=== PATIENT | female | born 1945 | race Caucasian/White ===

== ENCOUNTER 2020-01-02 17:16 | Emergency (ER) | payer MEDICARE, BC ==
[~2020-01-02 17:16] MED LIST: Iopamidol-370 76% 500 ML 1 ML ONE
[2020-01-02 18:20] LABS: #Basophils 0.1 thou/uL (0.0-0.2); #Eosinphils 0.1 thou/uL (0.0-0.7); #Lymphocytes 1.8 thou/uL (1.20-3.40); %Basophils 0.6 % (0.0-1.0); %Eosinophils 0.6 % (0.0-10.0); %Lymphocytes 16.1 % (21.0-51.0); %Monocytes 9.1 % (0.0-10.0); %Neutrophils 73.7 % (42.0-75.0); Mean Corpuscular HGB CONC 33.2 g/dL (32.0-36.0); Mean Corpuscular Hemoglobin 29.5 pg (27.0-31.0); Mean Corpuscular Volume 88.9 fL (78.0-98.0); Mean Platelet Volume 6.2 fL (7.4-10.4); Platelet Count 398 thou/uL (130-400); RBC Distribution Width 13.2 % (11.5-14.5); White Blood Cell (WBC) Count 10.9 thou/uL (4.8-10.8)
[2020-01-02 18:23] LABS: INR-International Normal Ratio 1.1; Prothrombin Time 14.6 sec (12.0-14.7)
[2020-01-02 18:24] LABS: PTT 39.4 sec (22.9-36.1)
[2020-01-02 18:40] LABS: ALT (SGPT) 8 U/L (8-55); AST (SGOT) 9 U/L (5-34); Alkaline Phosphatase 82 U/L (40-110); Anion Gap 16 mmol/L (10-20); BUN (Urea Nitrogen) 12 mg/dL (9.8-20.1); Bilirubin, Total 0.5 mg/dL (0.2-1.2); Calc. Creatinine Clearance 0 mL/min (70-130); Calcium 9.3 mg/dL (7.8-10.44); Carbon Dioxide 21 mmol/L (23-31); Chloride 102 mmol/L (98-107); Estimated GFR-MDRD 69; Globulin 3.6 g/dL (2.4-3.5); Glucose 132 mg/dL (83-110); Potassium 3.7 mmol/L (3.5-5.1); Protein, Total 7.6 g/dL (6.0-8.3); Sodium 135 mmol/L (136-145)
[2020-01-02 19:06] LABS: Bilirubin Negative (Negative); Blood, Urine 3+ (Negative); Clarity Turbid (Clear); Glucose, Urine (Dipstick) Normal (Negative); Ketone, Urine Negative (Negative); Leukocyte Negative Leu/uL (Negative); Nitrite Negative (Negative); Protein, Urine (Dipstick) 300 mg/dL (Neg-Trace); RBC/HPF Greater than 50 HPF (0-3); Specific Gravity, Urine 1.021 (1.002-1.036); Squamous Epithelial None Seen HPF (0-3); Urobilinogen Normal mg/dL (Less than 2); WBC/HPF 0-3 HPF (0-3)
[2020-01-02 19:07] LABS: Bacteria/HPF 1+ HPF (None Seen)
--- NOTE | 2020-01-02 21:01 | CT ---
CT ABDOMEN AND PELVIS WITHOUT CONTRAST: Date: 01/02/2020 HISTORY: Hematuria. FINDINGS: Absence of oral and IV contrast reduces the sensitivity of exam, particularly for evaluation of solid organs and bowel. The lung bases are unremarkable. There is a calcified gallstone. No free air or free fluid is seen in the abdomen or pelvis. Uterus is present. There is colonic diverticulosis without diverticulitis. Th e small bowel loops are not abnormally dilated. There is a 14.0 mm right adrenal nodule with attenuation values consistent with a benign adenoma. The re is an indeterminate 2.6 cm left adrenal nodule. There is a 4.0 mm nonobstructing calculus in the right kidney. No calculi seen in the left kidney, ei ther ureter, or the urinary bladder. No hydroureteronephrosis is seen on the right. There is mild lef t-sided hydroureteronephrosis. There is mass-like density in the left kidney. There is mild left chely nephric inflammatory change. There is a Correa catheter in the urinary bladder with air in the urinary bladder. There are vascular calcifications without evidence of aneurysmal dilatation of the abdominal aorta. T here are degenerative changes in the spine. IMPRESSION: 1. Cholelithiasis. 2. Right adrenal adenoma. 3. Indeterminate 2.6 cm left adrenal nodule. 4. Nonobstructing 4.0 mm right renal calculus. 5. Probable left renal mass. 6. Mild left-sided hydroureteronephrosis and left perinephric inflammatory changes. UTI versus recen t passage of calculus. 7. Colonic diverticulosis. RECOMMENDATION: Further evaluation with a CT scan using the renal mass and adrenal mass protocol (with and without IV contrast) should be performed. CODE T. POS: TORI
--- NOTE | 2020-01-02 22:52 | CT ---
CT ABDOMEN AND PELVIS WITH AND WITHOUT IV CONTRAST: Date: 01/02/2020 HISTORY: Hematuria. FINDINGS: Correlation is made with CT stone protocol from earlier today. The lung bases are clear. There is a 7.0 mm low density lesion in the posterior inferior tip of the right lobe of the liver, to o small to characterize. A calcified gallstone is seen. There is a 9.0 mm hypodense lesion in the sera tral aspect of the neck/body of the pancreas. A 14.0 mm right adrenal adenoma is seen with an absolute washout of 82% and relative washout of 49%. The 3.0 cm left adrenal nodule has an absolute washout of 20% and relative washout of 13%, and is ind eterminate. There is high density in the left upper ureter suspicious for hemorrhage. There is a heterogeneously enhancing mass arising from the left mid cortex measuring 6.2 x 5.1 x 5.5 cm. There is loss of fat plane between this mass and the inferior aspect of the spleen. There is a heterogeneous mass in the medial cortex of the left kidney measuring about 18.0 mm and an 18.0 mm heterogeneous lesion in the inferior pole of the left kidney. In the right kidney, there is a 1.0 cm heterogeneous lesion in the superior pole. There is normal con trast excretion into the right ureter and urinary bladder. No contrast is seen on the 15 minute delay ed image in the left ureter. There is mild left hydroureteronephrosis. No renal vein thrombosis. A 4.0 mm nonobstructing calculus in the right kidney is again noted. The small bowel loops are not abnormally dilated. There is colonic diverticulosis. A uterus is presen t. No free air or free fluid seen in the abdomen or pelvis. There are a few prominent left paraaortic ly mph nodes measuring up to 7.0 mm at the level of the left renal vein. There is a Correa catheter in the urinary bladder. There are vascular calcifications without evidence of aneurysmal dilatation of the abdominal aorta. There are degenerative changes in the spine. No oste olytic or osteoblastic lesions are seen. IMPRESSION: 1. Findings are suspicious for left renal malignancy and left adrenal metastasis. 2. Right adrenal adenoma. 3. Cholelithiasis. 4. Mild left-sided hydroureteronephrosis. Probable blood clot in the left proximal ureter. 5. Nonobstructing 4.0 mm right renal calculus. 6. Colonic diverticulosis. 7. 9.0 mm low density lesion in the pancreas may represent a cystic neoplasm. POS: JELENAH
== END 2020-01-02 21:50 | disposition home or self-care (01) ==
LOC: ERS 17:16
DX: N28.89 Other specified disorders of kidney and ureter (principal); E27.9 Disorder of adrenal gland, unspecified; R33.9 Retention of urine, unspecified; E78.5 Hyperlipidemia, unspecified; I10 Essential (primary) hypertension; F17.210 Nicotine dependence, cigarettes, uncomplicated; Z79.899 Other long term (current) drug therapy
CPT/HCPCS: 36415; 51702; 74176; 74178; 80053; 81003; 81015; 85025; 85610; 85730; 87077; 87086; Q9967

== ENCOUNTER 2020-01-04 13:24 | Outpatient (CLI) | payer MEDICARE, BC ==
--- NOTE | 2020-01-04 14:42 | RAD ---
CHEST 2 VIEWS: HISTORY: Dyspnea. COMPARISON: 03/13/2015. FINDINGS: There is a large poorly circumscribed mass involving the superior medial right upper lobe adjacent to the right-sided anterior superior mediastinum. This mass measures approximately 5 cm in size and ce rtainly is concerning for a lung malignancy. There does appear to be some associated right upper lob e volume loss as well. The left lung is clear. Heart size is normal. IMPRESSION: Large medial right upper lobe lung mass with some minimal associated volume loss. CODE T
== END 2020-01-04 13:25 | disposition home or self-care (01) ==
LOC: BICRAD 13:24
PROVIDERS: ATTEND Internal Medicine Pulmonary Disease
DX: R06.00 Dyspnea, unspecified (principal); R91.8 Other nonspecific abnormal finding of lung field; J98.4 Other disorders of lung
CPT/HCPCS: 71046

== ENCOUNTER 2020-01-20 11:27 | Outpatient (CLI) | payer MEDICARE, BC, OTHER ==
--- NOTE | 2020-01-20 13:00 | RAD ---
EXAM: Chest PA and lateral: HISTORY: Preoperative exam. Right lung mass COMPARISON: 01/04/2020 FINDINGS: Heart: Normal cardiac silhouette Aorta: Atherosclerosis Pulmonary vessels: Normal Costophrenic angles: Costophrenic angles are clear. Lungs: Stable right upper lobe mass. Pneumothorax: No pneumothorax Osseous structures: No osseous abnormalities IMPRESSION: No acute cardiopulmonary process.
[2020-01-20 14:17] LABS: #Eosinphils 0.1 thou/uL (0.0-0.7); #Lymphocytes 1.1 thou/uL (1.20-3.40); #Monocytes 0.7 thou/uL (0.11-0.59); #Neutrophils 9.5 thou/uL (1.40-6.50); %Basophils 0.3 % (0.0-1.0); %Eosinophils 0.9 % (0.0-10.0); %Lymphocytes 9.9 % (21.0-51.0); %Monocytes 6.4 % (0.0-10.0); %Neutrophils 82.5 % (42.0-75.0); Hemoglobin 11.5 g/dL (12.0-16.0); Mean Corpuscular HGB CONC 32.1 g/dL (32.0-36.0); Mean Corpuscular Hemoglobin 29.5 pg (27.0-31.0); Mean Corpuscular Volume 91.7 fL (78.0-98.0); Mean Platelet Volume 6.3 fL (7.4-10.4); Platelet Count 338 thou/uL (130-400); RBC Distribution Width 13.1 % (11.5-14.5); Red Blood Cell (RBC) Count 3.91 mill/uL (4.20-5.40); White Blood Cell (WBC) Count 11.5 thou/uL (4.8-10.8)
[2020-01-20 14:37] LABS: Anion Gap 19 mmol/L (10-20); BUN (Urea Nitrogen) 13 mg/dL (9.8-20.1); Calc. Creatinine Clearance 0 mL/min (70-130); Calcium 9.2 mg/dL (7.8-10.44); Carbon Dioxide 24 mmol/L (23-31); Chloride 101 mmol/L (98-107); Estimated GFR-MDRD 78; Glucose 112 mg/dL (83-110); Potassium 4.4 mmol/L (3.5-5.1); Sodium 140 mmol/L (136-145)
--- NOTE | 2020-01-20 16:48 | EKG ---
Test Reason : Blood Pressure : / mmHG Vent. Rate : 093 BPM Atrial Rate : 093 BPM P-R Int : 220 ms QRS Dur : 082 ms QT Int : 356 ms P-R-T Axes : 076 073 071 degrees QTc Int : 442 ms Sinus rhythm with 1st degree A-V block Nonspecific T wave abnormality Abnormal ECG When compared with ECG of 09-JAN-2020 06:58, Nonspecific T wave abnormality now evident in Inferior leads Nonspecific T wave abnormality now evident in Anterior leads Confirmed by DR. Francesco BYERS ([id number]) on 01/20/2020 4:47:57 PM Referred By: WERNER Confirmed By:DR. Francesco BYERS
[2020-01-21 14:05] LABS: SARS-CoV-2 MS2 Positive; SARS-CoV-2 N Gene Negative; SARS-CoV-2 S Gene Negative; SARS-CoV-2 by NAA Not Detected (NotDetected); SARS-CoV-2 orf1ab Negative
== END 2020-01-20 11:28 | disposition home or self-care (01) ==
LOC: LABBT 11:27 → SCSRAD 11:28
PROVIDERS: ATTEND Specialist
DX: Z01.818 Encounter for other preprocedural examination (principal); Z20.828 Contact with and (suspected) exposure to other viral communicable diseases; C34.92 Malignant neoplasm of unspecified part of left bronchus or lung
CPT/HCPCS: 71046; 80048; 85025; 87635; 93005; 93010; U0003

== ENCOUNTER 2020-02-17 08:24 | Day surgery (SDC) | payer MEDICARE, BC ==
[2020-02-17] MEDS ORDERED: diphenhydrAMINE 25 MG CAP PO SCH (08:45)
[2020-02-17] MEDS ORDERED: Acetaminophen 500 MG TAB PO SCH (08:45)
[2020-02-17] MEDS ORDERED: Sodium Chloride 0.9% 30 ML ONE (09:09)
[2020-02-17 12:24] VITALS: BP 130/59; TEMP 98
== END 2020-02-17 12:38 | disposition home or self-care (01) ==
LOC: ONC/OP 08:24
PROVIDERS: ATTEND Nurse Practitioner Family
PROC: 30233N1 Transfusion of Nonautologous Red Blood Cells into Peripheral Vein, Percutaneous Approach (ICD-10-PCS; principal; 2020-02-17)
DX: D64.9 Anemia, unspecified (principal); D69.6 Thrombocytopenia, unspecified; Z88.2 Allergy status to sulfonamides
CPT/HCPCS: 36430; 86850; 86900; 86901; J1642; P9016; Q0163

== ENCOUNTER 2020-03-06 08:31 | Day surgery (SDC) | payer MEDICARE, BC ==
[2020-03-06] MEDS ORDERED: Acetaminophen 500 MG TAB PO SCH (09:15)
[2020-03-06] MEDS ORDERED: diphenhydrAMINE 25 MG CAP PO SCH (09:15)
[2020-03-06] MEDS ORDERED: Sodium Chloride 0.9% 20 ML ONE (09:43)
[2020-03-06 13:25] VITALS: TEMP 97.9
[2020-03-06 14:41] VITALS: BP 143/61
== END 2020-03-06 15:37 | disposition home or self-care (01) ==
LOC: ONC/OP 08:31
PROVIDERS: ATTEND Internal Medicine Hematology & Oncology
PROC: 30233N1 Transfusion of Nonautologous Red Blood Cells into Peripheral Vein, Percutaneous Approach (ICD-10-PCS; principal; 2020-03-06)
DX: D64.9 Anemia, unspecified (principal); D69.6 Thrombocytopenia, unspecified
CPT/HCPCS: 36430; 86850; 86900; 86901; J1642; P9016; Q0163

== ENCOUNTER 2020-03-15 07:39 | Outpatient (CLI) | payer MEDICARE, BC ==
--- NOTE | 2020-03-15 12:07 | PET ---
PET CT: HISTORY: A 75-year-old female with lung cancer. Exam requested to evaluate response to treatment. Malignant neoplasm of overlapping sites of right bronchus and lung. The patient is undergoing chemotherapy. TECHNIQUE: PET scan with CT attenuation correction was performed from the base of the brain through the proximal thighs following the intravenous administration of 10 mCi [id number] through the left-si ded MediPort. COMPARISON: PET CT dated 01/13/2020. FINDINGS: There has been interval decrease in size in FDG localization in the right hilar/suprahilar mass since the previous exam with a current SUV of 9.6 (previously 22.6). No other hypermetabolic pulmonary no dules are seen. No leslie hypermetabolism is seen in the mediastinum, axillary regions, left hilum, n rio, abdomen, or pelvis. There is continued hypermetabolic activity in the left adrenal mass with an SUV of 9 (previously 8). The hypermetabolic mass in the pancreas is no longer seen. The previously noted hypermetabolic activity in the mass in the left mid kidney and the right superio r pole is not seen on the current exam. No hyperbolic liver, right adrenal, or skeletal lesions are seen. There is physiologic activity in the GI and tracts and the visualized portions of the brain. The CT scan used for attenuation correction demonstrates no evidence of pleural effusions or ascites. Cholelithiasis , nonobstructing right renal calculus, left renal mass, and colonic diverticulosis a re again seen. IMPRESSION: Incomplete response to therapy with interval improvement since 01/13/2020. POS: SHAWNEE
== END 2020-03-15 07:40 | disposition home or self-care (01) ==
LOC: PET 07:39
PROVIDERS: ATTEND Internal Medicine Hematology & Oncology
DX: C34.81 Malignant neoplasm of overlapping sites of right bronchus and lung (principal)
CPT/HCPCS: 78815; A9552

== ENCOUNTER 2020-04-20 09:17 | Day surgery (SDC) | payer MEDICARE, BC ==
[2020-04-20] MEDS ORDERED: diphenhydrAMINE 25 MG CAP PO SCH (10:00)
[2020-04-20] MEDS ORDERED: Acetaminophen 500 MG TAB PO SCH (10:00)
[2020-04-20 14:48] VITALS: BP 148/64; TEMP 98.3
[2020-04-20 15:39] LABS: #Lymphocytes 1.4 thou/uL (1.20-3.40); #Monocytes 0.3 thou/uL (0.11-0.59); #Neutrophils 1.7 thou/uL (1.40-6.50); %Basophils 1.2 % (0.0-1.0); %Eosinophils 0.1 % (0.0-10.0); %Lymphocytes 40.1 % (21.0-51.0); %Monocytes 8.9 % (0.0-10.0); %Neutrophils 49.7 % (42.0-75.0); Mean Corpuscular HGB CONC 33.4 g/dL (32.0-36.0); Mean Corpuscular Hemoglobin 30.5 pg (27.0-31.0); Mean Corpuscular Volume 91.2 fL (78.0-98.0); Mean Platelet Volume 6.9 fL (7.4-10.4); Platelet Count 140 thou/uL (130-400); Red Blood Cell (RBC) Count 2.61 mill/uL (4.20-5.40); White Blood Cell (WBC) Count 3.4 thou/uL (4.8-10.8)
== END 2020-04-20 14:40 | disposition home or self-care (01) ==
LOC: ONC/OP 09:17 → ONC 09:17 → ONC/OP 14:40
PROVIDERS: ATTEND Internal Medicine Hematology & Oncology
PROC: 30233N1 Transfusion of Nonautologous Red Blood Cells into Peripheral Vein, Percutaneous Approach (ICD-10-PCS; principal; 2020-04-20)
DX: D64.9 Anemia, unspecified (principal); D69.6 Thrombocytopenia, unspecified; Z88.2 Allergy status to sulfonamides
CPT/HCPCS: 36430; 85025; 86850; 86900; 86901; J1642; P9016; Q0163

== ENCOUNTER 2020-05-09 19:18 | Inpatient (IN) | payer MEDICARE, BC ==
[2020-05-09 21:29] LABS: Hemoglobin 10.6 g/dL (12.0-16.0); Mean Corpuscular Hemoglobin 33.3 pg (27.0-31.0); Mean Corpuscular Volume 97.9 fL (78.0-98.0); Mean Platelet Volume 6.2 fL (7.4-10.4); Platelet Count 265 thou/uL (130-400); RBC Distribution Width 21.7 % (11.5-14.5); Red Blood Cell (RBC) Count 3.18 mill/uL (4.20-5.40)
[2020-05-09 21:48] LABS: Band 6 % (5-11); Lymphocytes 12 % (21-51); MDiff Complete? YES; Monocytes 5 % (0-10); Neutrophil 77 % (42-75)
[2020-05-09 22:02] LABS: ALT (SGPT) 9 U/L (8-55); AST (SGOT) 10 U/L (5-34); Albumin 3.5 g/dL (3.4-4.8); Alkaline Phosphatase 120 U/L (40-110); Anion Gap 18 mmol/L (10-20); BUN (Urea Nitrogen) 13 mg/dL (9.8-20.1); Bilirubin, Total 0.6 mg/dL (0.2-1.2); Calc. Creatinine Clearance 0 mL/min (70-130); Calcium 9.7 mg/dL (7.8-10.44); Carbon Dioxide 25 mmol/L (23-31); Chloride 99 mmol/L (98-107); Globulin 3.6 g/dL (2.4-3.5); Glucose 151 mg/dL (83-110); Lipase 8 U/L (8-78); Potassium 3.7 mmol/L (3.5-5.1); Protein, Total 7.1 g/dL (6.0-8.3); Sodium 138 mmol/L (136-145)
[2020-05-09] MEDS ORDERED: Morphine 4 MG/ML VIAL ONE (22:29)
[2020-05-09] MEDS ORDERED: Ondansetron PF 4 MG/2 ML Vial ONE (22:30)
[2020-05-09] MEDS ORDERED: Piperacillin/Tazobactam 4.5 GM VIAL ONE (22:56)
--- NOTE | 2020-05-09 23:42 | CT ---
CT Abdomen Pelvis W Con History: Abdominal pain Comparison: PET/CT March 2020 Findings: No basilar pneumothorax or pleural effusion. No significant pericardial effusion. Cholelithiasis without cholecystitis. Relative to the December 2019 examination mild interval size decr ease of the left interpolar and right superior pole renal masses. Left adrenal metastatic focus is similar. Small diverticular abscess/contained perforation along the sigmoid colon which is partially intramura l and has truncation with the lumen measures up to 3.2 cm. Mild reactive inflammatory thickening of the adjacent sigmoid colon. No free intraperitoneal gas or fluid. No acute osseous abnormality. The liver, spleen are unremarkable. Extensive atherosclerotic plaque of the aorta without aneurysmal dilatation. No acute osseous abnormality. Impression: 1. Well-defined diverticular abscess/walled off perforation containing gas which has an intramural co mponent and measures up to 3.2 cm. Mild reactive adjacent sigmoid colon wall thickening. 2. Cholelithiasis without cholecystitis. 3. Left adrenal metastatic focus and bilateral renal mass/intrarenal metastasis similar to the recent March 2020 PET/CT.
[2020-05-10 00:22] LABS: Bilirubin Negative (Negative); Blood, Urine Negative (Negative); Clarity Clear (Clear); Glucose, Urine (Dipstick) Normal (Negative); Ketone, Urine Negative (Negative); Leukocyte Negative Leu/uL (Negative); Nitrite Negative (Negative); Protein, Urine (Dipstick) 10 mg/dL (Neg-Trace); Specific Gravity, Urine 1.025 (1.002-1.036); Urobilinogen Normal mg/dL (Less than 2)
[2020-05-10] MEDS ORDERED: Acetaminophen 650 MG Suppository PR PRN (01:20)
--- NOTE | 2020-05-10 01:42 | PDOC.BPN ---
- Brief Progress Note [id number] dictated
[2020-05-10] MEDS: Sodium Chloride 0.9% 1,000 ML IV SCH ×3 (02:07→14:58)
[2020-05-10] MEDS ORDERED: Ondansetron PF 4 MG/2 ML Vial ONE (02:18)
[2020-05-10] MEDS: Ondansetron PF 4 MG/2 ML Vial IVP PRN (02:26)
[2020-05-10] MEDS ORDERED: Morphine 2 MG/ML VIAL SLOW IVP PRN (03:14)
[2020-05-10] MEDS ORDERED: Morphine 2 MG/ML VIAL ONE (03:24)
[2020-05-10] MEDS ORDERED: RENALLY ADJUST CEFEPIME IVPB PRN (04:29)
--- NOTE | 2020-05-10 05:12 | HP ---
CHIEF COMPLAINT: Abdominal pain. HISTORY OF PRESENT ILLNESS: Ms. Roy is a 75-year-old female with a past medical history of stage IV lung cancer, on immunotherapy, presented to the emergency room with left lower quadrant abdominal pain. The patient initially told that she had constipation and took several [id number] medications for constipation relief, which caused diarrhea. No blood or mucus reported. No fever or chills. No aggravating or relieving factors. No history of small-bowel obstruction or diverticulitis or known mets to the colon. Workup in the emergency room, the patient had elevated WBC count of 21,000, hemoglobin 10.6, and platelets 265. CT of abdomen and pelvis showed well-defined diverticular abscess/walled-off perforation containing gas which has an intramural component and measures 3.2 cm. There is mild adjacent sigmoid colon wall thickening. ED physician discussed the case with surgeon who advised to admit the patient under hospitalist service and Surgery will consult. The patient was started on IV antibiotics. The patient is being admitted to hospital for further management. PAST MEDICAL HISTORY: 1. Stage IV lung cancer. 2. Hypertension. 3. Hyperlipidemia. PAST SURGICAL HISTORY: 1. Tonsillectomy. 2. Appendectomy. 3. Multiple skin cancers removed. SOCIAL HISTORY: The patient currently smokes cigarettes. She smoked for more than 30 years. Lives alone at home. Denies alcohol drinking. FAMILY HISTORY: Reviewed and noncontributory. ALLERGIES: SULFA. HOME MEDICATIONS: See home medication reconciliation form for updated medications. REVIEW OF SYSTEMS: Review of 14 systems negative except what is mentioned in the history of present illness. PHYSICAL EXAMINATION: GENERAL: The patient is awake, alert, in moderate distress. VITAL SIGNS: Blood pressure 122/53, pulse is 84, respiratory rate is 18, oxygen saturation is 98% on room air, and temperature is 97.4. HEENT: Normocephalic, atraumatic. NECK: Supple. No JVD. CHEST: Fair bilateral air entry. HEART: S1, S2. Regular. ABDOMEN: Soft with left lower quadrant abdominal tenderness. Bowel sounds present. NEUROLOGIC: Awake, alert, and oriented x3. No focal deficits. PSYCH: Unable to assess. EXTREMITIES: No clubbing, no cyanosis. LABORATORY DATA: As mentioned above in the history of present illness. IMAGING STUDIES: As mentioned above in the history of present illness. ASSESSMENT: 1. Acute diverticulitis with abscess. 2. Sepsis. 3. Stage IV lung cancer. 4. Immunocompromised. 5. Hypertension. 6. Hyperlipidemia. PLAN: 1. Admit. 2. Keep n.p.o. 3. IV fluids. 4. IV antibiotics. 5. Pain management. 6. Surgeon consulted for evaluation and further management. 7. Reconcile home medications. 8. DVT prophylaxis as appropriate. 9. Expected length of stay, 2 midnights or more. Case discussed with ED physician, patient and patient's family. Job ID: [id number]
[2020-05-10] MEDS ORDERED: metroNIDAZOLE 500 MG/100 ML BAG ONE (06:02)
[2020-05-10] MEDS: metroNIDAZOLE 500 MG in Premix Bag 1 BAG IVPB SCH ×3 (06:10→21:14)
--- NOTE | 2020-05-10 07:48 | CON ---
DATE OF CONSULTATION: 05/10/2020 CHIEF COMPLAINT: Diverticulitis. HISTORY OF PRESENT ILLNESS: This is a 75-year-old female who has currently just finished chemotherapy for lung cancer. She has metastatic disease to kidney and pancreas per her report. Since she started chemotherapy, she was told she would start feeling better, she did not. Developed more left lower quadrant abdominal pain in the last few days. It became severe and crampy last night. Seen in the emergency department. She is admitted to the hospitalist service with diverticulitis and abscess. She denies previous history of diverticulitis. She has had previous normal colonoscopy. Pain right now described as 4/10. She is due for pain medicine. No nausea. She has been afebrile since admission, hemodynamically stable. MEDICAL HISTORY: Stage IV lung, hypertension, hyperlipidemia. SURGICAL HISTORY: Tonsillectomy, appendectomy, skin cancer, MediPort. SOCIAL HISTORY: Smoker. Lives at home. No alcohol. ALLERGIES: SULFA, MEDICINES: See long list. REVIEW OF SYSTEMS: 10 system review of systems is otherwise negative unless described above. PHYSICAL EXAMINATION: VITAL SIGNS: Blood pressure is 127/71, pulse 83, respirations 18. HEENT: Sclerae anicteric. Oropharynx clear. NECK: No lymphadenopathy. CHEST: Clear. HEART: Regular rate. ABDOMEN: Soft, tender in the left lower quadrant with localized guarding without rebound, no diffuse peritoneal signs. EXTREMITIES: No ischemia or edema to extremities. LABORATORY DATA: Creatinine 0.84. White blood cell count is 21, hemoglobin 10, platelet count is 265. She has [address] scan reviewed. ASSESSMENT: 1. Diverticulitis with abscess. 2. History of metastatic stage IV lung cancer. PLAN: We will discuss with Radiology this morning whether they think that this is able to be drained. If unable to be drained, she would be high risk for surgery at this time, but probably would treat her with broad-spectrum antibiotics through the weekend and repeat the scan as long as long as she stays stable, probably get Oncology's input in the treatment plan as well. Job ID: [id number]
[2020-05-10 08:11] LABS: #Lymphocytes 1.3 thou/uL (1.20-3.40); #Monocytes 1.1 thou/uL (0.11-0.59); #Neutrophils 9.4 thou/uL (1.40-6.50); %Eosinophils 0.3 % (0.0-10.0); %Lymphocytes 10.5 % (21.0-51.0); %Monocytes 9.6 % (0.0-10.0); %Neutrophils 79.5 % (42.0-75.0); Hemoglobin 9.1 g/dL (12.0-16.0); Mean Corpuscular HGB CONC 33.8 g/dL (32.0-36.0); Mean Corpuscular Hemoglobin 33.6 pg (27.0-31.0); Mean Corpuscular Volume 99.5 fL (78.0-98.0); Mean Platelet Volume 6.2 fL (7.4-10.4); Platelet Count 232 thou/uL (130-400); RBC Distribution Width 21.6 % (11.5-14.5); Red Blood Cell (RBC) Count 2.72 mill/uL (4.20-5.40); White Blood Cell (WBC) Count 11.9 thou/uL (4.8-10.8)
[2020-05-10 08:24] LABS: Anion Gap 14 mmol/L (10-20); BUN (Urea Nitrogen) 11 mg/dL (9.8-20.1); Calc. Creatinine Clearance 0 mL/min (70-130); Calcium 8.5 mg/dL (7.8-10.44); Carbon Dioxide 24 mmol/L (23-31); Chloride 102 mmol/L (98-107); Glucose 96 mg/dL (83-110); Potassium 3.4 mmol/L (3.5-5.1); Sodium 137 mmol/L (136-145)
[2020-05-10] MEDS: Fentanyl 100 MCG/2 ML VIAL SLOW IVP PRN ×5 (08:53→18:26)
[2020-05-10] MEDS: Cefepime 2 GM in Sodium Chloride 0.9% 100 ML IVPB SCH ×2 (08:57→21:14)
[2020-05-10] MEDS: Famotidine/PF 20 mg/2ml Vial SLOW IVP SCH (08:57)
[2020-05-10] MEDS: Enoxaparin Sodium 40 MG/0.4 ML SYRINGE SC SCH (09:16)
[2020-05-10] MEDS ORDERED: Cepastat Lozenges 1 LOZ PO PRN (14:41)
[2020-05-10] MEDS ORDERED: HYDROcodone/Acetaminophen 5/325 mg Tablet PO PRN (15:05)
[2020-05-10] MEDS: Nicotine 14 MG PATCH TD SCH (16:00)
[2020-05-10] MEDS: HYDROcodone/Acetaminophen 5/325 mg Tablet PO PRN ×2 (17:17→21:15)
[2020-05-11] MEDS: HYDROcodone/Acetaminophen 5/325 mg Tablet PO PRN ×4 (03:07→20:06)
[2020-05-11] MEDS: Sodium Chloride 0.9% 1,000 ML IV SCH ×3 (03:13→15:09)
[2020-05-11 03:15] LABS: SARS-CoV-2 MS2 Positive; SARS-CoV-2 N Gene Negative; SARS-CoV-2 S Gene Negative; SARS-CoV-2 by NAA Not Detected (NotDetected); SARS-CoV-2 orf1ab Negative
[2020-05-11] MEDS: Ondansetron PF 4 MG/2 ML Vial IVP PRN ×4 (05:44→23:17)
[2020-05-11] MEDS: Fentanyl 100 MCG/2 ML VIAL SLOW IVP PRN ×5 (05:46→23:17)
[2020-05-11] MEDS: metroNIDAZOLE 500 MG in Premix Bag 1 BAG IVPB SCH (05:51)
--- NOTE | 2020-05-11 07:52 | PDOC.HOSPP ---
- Subjective Encounter Date: 05/11/20 Subjective: Seen and examined at bedside in no acute distress. Patient appears non toxic, in very good spirit. Denies any fever chills malaise. Refers mild nausea but no vomiting, very mild tenderness of left flank. - Objective Vital Signs & Weight: Vital Signs (12 hours) Temp Pulse Resp BP Pulse Ox 05/11/20 07:27 97.6 F 76 20 126/73 96 05/11/20 00:00 97.6 F 72 16 100/59 L 96 05/10/20 20:03 98.0 F 88 16 94/57 L 96 05/10/20 20:00 96 Weight Weight 132 lb 1.6 oz I&O: 05/10/20 05/11/20 05/12/20 06:59 06:59 06:59 Intake Total 3280 Balance 3280 Result Diagrams: 05/10/20 07:27 05/10/20 07:27 Hospitalist ROS - Review of Systems Constitutional: reports: weakness. denies: fever, chills, sweats, malaise, other Respiratory: denies: cough, dry, shortness of breath, hemoptysis, SOB with excertion, pleuritic pain, sputum, wheezing, other Cardiovascular: denies: chest pain, palpitations, orthopnea, paroxysmal noc. dyspnea, edema, light headedness, other Gastrointestinal: reports: nausea, abdominal pain. denies: vomiting, diarrhea Genitourinary: denies: dysuria, frequency, incontinence, hematuria, retention, other Musculoskeletal: denies: neck pain, shoulder pain, arm pain, back pain, hand pain, leg pain, foot pain, other - Medication Medications: Active Medications Generic Name Dose Route Start Last Admin Trade Name Freq PRN Reason Stop Dose Admin Hydrocodone Bitart/Acetaminophen 2 tab 05/10/20 15:05 05/11/20 03:07 Hydrocodone/Acetaminophen 5/325 Mg Tablet PO 2 tab Q4H PRN Administration Severe Pain (7-10) Enoxaparin Sodium 40 mg 05/10/20 09:00 05/10/20 09:16 Enoxaparin Sodium 40 Mg/0.4 Ml Syringe SC 40 mg 0900 KENNY Administration Famotidine 20 mg 05/10/20 09:00 05/10/20 08:57 Famotidine/Pf 20 Mg/2ml Vial SLOW IVP 20 mg QAM KENNY Administration Fentanyl 25 mcg 05/10/20 07:21 05/11/20 05:46 Fentanyl 100 Mcg/2 Ml Vial SLOW IVP 25 mcg Q2H PRN Administration Mild Pain (1-3) Fentanyl 50 mcg 05/10/20 07:21 05/10/20 18:26 Fentanyl 100 Mcg/2 Ml Vial SLOW IVP 50 mcg Q2H PRN Administration Moderate to Severe Pain (6-10) Sodium Chloride 1,000 mls @ 100 mls/hr 05/10/20 01:30 05/11/20 03:13 Normal Saline 0.9% IV 1,000 mls .Q10H KENNY Administration Cefepime HCl 2 gm/ Sodium 100 mls @ 200 mls/hr 05/10/20 09:00 05/10/20 21:14 Chloride IVPB 100 mls Q12HR KENNY Administration Metronidazole 500 mg/ Device 100 mls @ 100 mls/hr 05/10/20 06:00 05/11/20 05:51 IVPB 100 mls Q8HR KENNY Administration Nicotine 14 mg 05/10/20 16:00 05/10/20 16:00 Nicotine 14 Mg Patch TD 14 mg 1600 KENNY Administration Ondansetron HCl 4 mg 05/10/20 01:20 05/11/20 05:44 Ondansetron Pf 4 Mg/2 Ml Vial IVP 4 mg Q6H PRN Administration Nausea/Vomiting Sodium Chloride 10 ml 05/10/20 09:00 05/10/20 21:14 Flush - Normal Saline 10 Ml Syringe IVF Not Given Q12HR KENNY - Exam General Appearance: NAD, awake alert Eye: PERRL, anicteric sclera Neck: supple, symmetric, no JVD, no thyromegaly, no lymphadenopathy, no carotid bruit Heart: RRR, no murmur, no gallops, no rubs, normal peripheral pulses Respiratory: CTAB, no wheezes, no rales, no ronchi, normal chest expansion, no tachypnea, normal percussion Musculoskeletal: normal tone, normal strength, no muscle wasting Hosp A/P - Plan old records reviewed/req A/P: Patient with hx of metastatic stage IV lung CA on immunotherapy presents to ED with cc LLQ pain with initial CT abdomen showing well defined 3.2 cm diverticular abscess with walled-off perforation # Diverticular abscess: Non toxic appearing, abdominal discomfort is only mild, some nausea but no vomiting. Per surgery continue with IV ABX over the weekend and repeat imaging on Thursday. If abscess appears to increase in size or clinical worsening surgery to re-evaluate case for IR drainage vs I&D by surgery. # Lung CA: Hx of stage IV CA. Continue with outpatient management. Inhalers for hx of COPD. # Tachycardia: Chronic diagnosis. Currently with normal HR. Continue with Verapamil. # HLD: Continue with statin. DISPOSITION: Awaiting imaging re-evaluation of diverticular abscess on Thursday. Continue with above management.
[2020-05-11] MEDS: Cefepime 2 GM in Sodium Chloride 0.9% 100 ML IVPB SCH (09:24)
[2020-05-11] MEDS: Enoxaparin Sodium 40 MG/0.4 ML SYRINGE SC SCH (09:26)
[2020-05-11] MEDS: Famotidine/PF 20 mg/2ml Vial SLOW IVP SCH (09:26)
[2020-05-11] MEDS ORDERED: traMADol HCl 50 MG TAB PO PRN (12:55)
[2020-05-11] MEDS ORDERED: HYDROcodone/Acetaminophen 7.5/325 mg Tablet PO PRN (12:56)
--- NOTE | 2020-05-11 13:22 | PRG ---
DATE OF SERVICE: 05/11/2020 SUBJECTIVE: Ms. Roy is still having left lower quadrant pain, although it is controlled with the IV pain medicine. She is complaining of nausea, although she is doing her clear liquids. She is afebrile. Vital signs are stable. Her abdomen is soft. She is tender in the left lower quadrant, localized, guarding without rebound. She has no diffuse peritoneal signs. OBJECTIVE: VITAL SIGNS: She is afebrile. Vital signs are stable. ABDOMEN: Left lower quadrant guarding, but no diffuse peritoneal signs. ASSESSMENT: Acute diverticulitis with localized abscess, not amenable to drainage. PLAN: Continue IV antibiotics and clear liquids through the weekend. We will reassess with repeat CAT scan on Thursday. If this abscess gets larger, it will likely become more accessible. If not and it is better, transition to oral antibiotics. She has had decreased ability physically lately and so we will write for caseworker to see her for possible long-term. Job ID: [id number]
[2020-05-11] MEDS ORDERED: Lorazepam 0.5 MG TAB PO PRN (14:27)
[2020-05-11] MEDS ORDERED: Albuterol Sulfate 2.5 mg/3 ml Neb NEB PRN (14:43)
[2020-05-11] MEDS: Nicotine 14 MG PATCH TD SCH (15:03)
[2020-05-11] MEDS: Piperacillin/Tazobactam 3.375 GM in Sodium Chloride 0.9% 100 ML IVPB SCH ×2 (17:33→23:17)
[2020-05-11] MEDS: Mometasone 200 MCG/Formoterol 5 MCG 120 PUFF INHALER INH SCH (19:02)
[2020-05-11] MEDS: Montelukast Sodium 10 mg Tablet PO SCH (20:07)
[2020-05-11] MEDS: Atorvastatin Calcium 40 MG TAB PO SCH (20:07)
[2020-05-12] MEDS: Fentanyl 100 MCG/2 ML VIAL SLOW IVP PRN ×3 (02:10→20:26)
[2020-05-12] MEDS: Sodium Chloride 0.9% 1,000 ML IV SCH ×4 (02:10→22:29)
[2020-05-12] MEDS: Ondansetron PF 4 MG/2 ML Vial IVP PRN ×3 (05:26→17:52)
[2020-05-12] MEDS: Piperacillin/Tazobactam 3.375 GM in Sodium Chloride 0.9% 100 ML IVPB SCH ×4 (05:26→22:29)
[2020-05-12 05:48] LABS: #Eosinphils 0.1 thou/uL (0.0-0.7); #Lymphocytes 0.9 thou/uL (1.20-3.40); #Monocytes 0.8 thou/uL (0.11-0.59); #Neutrophils 6.4 thou/uL (1.40-6.50); %Basophils 0.1 % (0.0-1.0); %Eosinophils 0.9 % (0.0-10.0); %Lymphocytes 11.3 % (21.0-51.0); %Monocytes 9.4 % (0.0-10.0); %Neutrophils 78.3 % (42.0-75.0); Hemoglobin 7.9 g/dL (12.0-16.0); Mean Corpuscular HGB CONC 31.8 g/dL (32.0-36.0); Mean Corpuscular Hemoglobin 31.6 pg (27.0-31.0); Mean Corpuscular Volume 99.3 fL (78.0-98.0); Mean Platelet Volume 6.1 fL (7.4-10.4); Platelet Count 244 thou/uL (130-400); RBC Distribution Width 20.8 % (11.5-14.5); Red Blood Cell (RBC) Count 2.49 mill/uL (4.20-5.40); White Blood Cell (WBC) Count 8.2 thou/uL (4.8-10.8)
[2020-05-12 06:12] LABS: Anion Gap 12 mmol/L (10-20); BUN (Urea Nitrogen) 6 mg/dL (9.8-20.1); Calc. Creatinine Clearance 77 mL/min (70-130); Calcium 7.8 mg/dL (7.8-10.44); Carbon Dioxide 22 mmol/L (23-31); Chloride 108 mmol/L (98-107); Glucose 83 mg/dL (83-110); Potassium 3.1 mmol/L (3.5-5.1); Sodium 139 mmol/L (136-145)
[2020-05-12] MEDS: HYDROcodone/Acetaminophen 5/325 mg Tablet PO PRN ×4 (06:14→22:29)
[2020-05-12] MEDS: Mometasone 200 MCG/Formoterol 5 MCG 120 PUFF INHALER INH SCH ×2 (07:07→19:02)
[2020-05-12] MEDS ORDERED: Potassium Chloride 20 MEQ TAB PO SCH (07:45)
--- NOTE | 2020-05-12 07:48 | PDOC.HOSPP ---
- Subjective Encounter Date: 05/12/20 Subjective: Patient seen and examined at bedside in no acute distress. States she still has some abdominal tenderness and mild nausea but no vomiting. Denies any fever or chills. Vital signs remain stable without any fever. Remains on broad spectrum antibiotics IV Zosyn. Awaiting imaging re-evaluation on Thursday for further recommendations regarding diverticular abscess. - Objective Vital Signs & Weight: Vital Signs (12 hours) Temp Pulse Resp BP Pulse Ox 05/12/20 04:00 98.0 F 75 20 116/68 95 Weight Weight 134 lb 12.8 oz I&O: 05/11/20 05/12/20 05/13/20 06:59 06:59 06:59 Intake Total 3280 3470 Output Total 400 Balance 3280 3070 Result Diagrams: 05/12/20 05:34 05/12/20 05:34 Hospitalist ROS - Review of Systems Constitutional: denies: fever, chills, sweats, weakness, malaise, other Respiratory: denies: cough, dry, shortness of breath, hemoptysis, SOB with excertion, pleuritic pain, sputum, wheezing, other Cardiovascular: denies: chest pain, palpitations, orthopnea, paroxysmal noc. dyspnea, edema, light headedness, other Gastrointestinal: reports: nausea, abdominal pain, diarrhea. denies: vomiting, melena, hematochezia Genitourinary: denies: dysuria, frequency, incontinence, hematuria, retention, other Neurological: denies: weakness, numbness, incoordination, change in speech, confusion, seizures, other - Medication Medications: Active Medications Generic Name Dose Route Start Last Admin Trade Name Chalinoq PRN Reason Stop Dose Admin Hydrocodone Bitart/Acetaminophen 2 tab 05/10/20 15:05 05/12/20 06:14 Hydrocodone/Acetaminophen 5/325 Mg Tablet PO 2 tab Q4H PRN Administration Severe Pain (7-10) Atorvastatin Calcium 40 mg 05/11/20 21:00 05/11/20 20:07 Atorvastatin Calcium 40 Mg Tab PO 40 mg HS KENNY Administration Enoxaparin Sodium 40 mg 05/10/20 09:00 05/11/20 09:26 Enoxaparin Sodium 40 Mg/0.4 Ml Syringe SC 40 mg 0900 KENNY Administration Famotidine 20 mg 05/10/20 09:00 05/11/20 09:26 Famotidine/Pf 20 Mg/2ml Vial SLOW IVP 20 mg QAM KENNY Administration Fentanyl 25 mcg 05/10/20 07:21 05/11/20 05:46 Fentanyl 100 Mcg/2 Ml Vial SLOW IVP 25 mcg Q2H PRN Administration Mild Pain (1-3) Fentanyl 50 mcg 05/10/20 07:21 05/12/20 02:10 Fentanyl 100 Mcg/2 Ml Vial SLOW IVP 50 mcg Q2H PRN Administration Moderate to Severe Pain (6-10) Sodium Chloride 1,000 mls @ 100 mls/hr 05/10/20 01:30 05/12/20 02:10 Normal Saline 0.9% IV 1,000 mls .Q10H KENNY Administration Piperacillin Sod/Tazobactam 100 mls @ 200 mls/hr 05/11/20 18:00 05/12/20 05:26 Sod 3.375 gm/ Sodium Chloride IVPB 100 mls Q6HR KENNY Administration Mometasone Furoate/Formoterol Fumar 2 puff 05/11/20 18:30 05/12/20 07:07 Mometasone 200 Mcg/Formoterol 5 Mcg 120 Puff Inhaler INH 2 puff BID-RT KENNY Administration Montelukast Sodium 10 mg 05/11/20 21:00 05/11/20 20:07 Montelukast Sodium 10 Mg Tablet PO 10 mg HS KENNY Administration Nicotine 14 mg 05/10/20 16:00 05/11/20 15:03 Nicotine 14 Mg Patch TD 14 mg 1600 KENNY Administration Ondansetron HCl 4 mg 05/10/20 01:20 05/12/20 05:26 Ondansetron Pf 4 Mg/2 Ml Vial IVP 4 mg Q6H PRN Administration Nausea/Vomiting Sodium Chloride 10 ml 05/10/20 09:00 05/11/20 20:07 Flush - Normal Saline 10 Ml Syringe IVF Not Given Q12HR KENNY - Exam General Appearance: NAD, awake alert Eye: PERRL, anicteric sclera Heart: RRR, no murmur, no gallops, no rubs, normal peripheral pulses Respiratory: no wheezes, no rales, normal chest expansion Respiratory - other findings: Ronchorous upper respiratory sounds Gastrointestinal: soft, non-distended, tender to palpation Neurological: cranial nerve grossly intact, normal sensation to touch, no weakness, no focal deficits, no new deficit Psychiatric: normal affect, normal behavior, A&O x 3 Hosp A/P - Plan A/P: Patient with hx of metastatic stage IV lung CA on immunotherapy presents to ED with cc LLQ pain with initial CT abdomen showing well defined 3.2 cm diverticular abscess with walled-off perforation # Diverticular abscess: Non toxic appearing, abdominal discomfort is only mild, some nausea but no vomiting. Per surgery continue with IV ABX over the weekend and repeat imaging on Thursday. If abscess appears to increase in size or clinical worsening surgery to re-evaluate case for IR drainage vs I&D by surgery. # Lung CA: Hx of stage IV CA. Continue with outpatient management. # COPD: No evidence of acute exacerbation. Continue with home inhalers. # Tachycardia: Chronic diagnosis. Currently with normal HR. Continue with Verapamil. # HLD: Continue with statin. DISPOSITION: Awaiting imaging re-evaluation of diverticular abscess on Thursday. Continue with above management.
[2020-05-12] MEDS: Famotidine/PF 20 mg/2ml Vial SLOW IVP SCH (08:48)
[2020-05-12] MEDS: Enoxaparin Sodium 40 MG/0.4 ML SYRINGE SC SCH (08:49)
[2020-05-12] MEDS: Nicotine 14 MG PATCH TD SCH (16:28)
[2020-05-12] MEDS ORDERED: Labetalol HCl 100 MG/20 ML VIAL ONE (19:18)
[2020-05-12] MEDS: Montelukast Sodium 10 mg Tablet PO SCH (20:25)
[2020-05-12] MEDS: Atorvastatin Calcium 40 MG TAB PO SCH (20:25)
[2020-05-13] MEDS: Fentanyl 100 MCG/2 ML VIAL SLOW IVP PRN ×2 (00:18→05:05)
[2020-05-13] MEDS: HYDROcodone/Acetaminophen 5/325 mg Tablet PO PRN (02:47)
[2020-05-13] MEDS: Piperacillin/Tazobactam 3.375 GM in Sodium Chloride 0.9% 100 ML IVPB SCH ×3 (05:06→18:45)
[2020-05-13 05:45] LABS: #Basophils 0.1 thou/uL (0.0-0.2); #Monocytes 0.8 thou/uL (0.11-0.59); #Neutrophils 6.6 thou/uL (1.40-6.50); %Basophils 0.6 % (0.0-1.0); %Eosinophils 0.4 % (0.0-10.0); %Lymphocytes 12.2 % (21.0-51.0); %Monocytes 8.8 % (0.0-10.0); Hemoglobin 8.8 g/dL (12.0-16.0); Mean Corpuscular HGB CONC 33.6 g/dL (32.0-36.0); Mean Corpuscular Hemoglobin 33.1 pg (27.0-31.0); Mean Corpuscular Volume 98.5 fL (78.0-98.0); Mean Platelet Volume 6.4 fL (7.4-10.4); Platelet Count 253 thou/uL (130-400); RBC Distribution Width 21.2 % (11.5-14.5); Red Blood Cell (RBC) Count 2.66 mill/uL (4.20-5.40); White Blood Cell (WBC) Count 8.5 thou/uL (4.8-10.8)
[2020-05-13 06:10] LABS: Anion Gap 16 mmol/L (10-20); BUN (Urea Nitrogen) 5 mg/dL (9.8-20.1); Calc. Creatinine Clearance 76 mL/min (70-130); Calcium 7.9 mg/dL (7.8-10.44); Carbon Dioxide 20 mmol/L (23-31); Chloride 108 mmol/L (98-107); Glucose 71 mg/dL (83-110); Magnesium 1.6 mg/dL (1.6-2.6); Potassium 3.7 mmol/L (3.5-5.1); Sodium 140 mmol/L (136-145)
[2020-05-13] MEDS: Mometasone 200 MCG/Formoterol 5 MCG 120 PUFF INHALER INH SCH ×2 (07:27→20:02)
--- NOTE | 2020-05-13 07:54 | PDOC.HOSPP ---
- Subjective Encounter Date: 05/13/20 Subjective: Seen and examined at bedside. Good spirit this morning. Denies overnight events. No fever, chills, malaise. Refers her abdominal pain is not as bad. Nausea still present that tends to occur after administration of narcotics. - Objective Vital Signs & Weight: Vital Signs (12 hours) Temp Pulse Resp BP BP Pulse Ox 05/13/20 07:51 97.5 F L 75 18 158/72 H 92 L 05/13/20 04:26 97.9 F 71 20 118/63 94 L 05/12/20 20:38 70 Weight Weight 134 lb 12.8 oz I&O: 05/12/20 05/13/20 05/14/20 06:59 06:59 06:59 Intake Total 3470 1800 Output Total 400 Balance 3070 1800 Result Diagrams: 05/13/20 05:23 05/13/20 05:23 Hospitalist ROS - Review of Systems Constitutional: reports: weakness. denies: fever, chills, sweats, malaise, other Respiratory: denies: cough, dry, shortness of breath, hemoptysis, SOB with excertion, pleuritic pain, sputum, wheezing, other Cardiovascular: denies: chest pain, palpitations, orthopnea, paroxysmal noc. dyspnea, edema, light headedness, other Gastrointestinal: denies: nausea, vomiting, abdominal pain, diarrhea, constipation, melena, hematochezia, other Neurological: reports: weakness (Generalized weakness). denies: numbness, incoordination, change in speech, confusion, seizures, other - Medication Medications: Active Medications Generic Name Dose Route Start Last Admin Trade Name Chalinoq PRN Reason Stop Dose Admin Hydrocodone Bitart/Acetaminophen 2 tab 05/10/20 15:05 05/13/20 02:47 Hydrocodone/Acetaminophen 5/325 Mg Tablet PO 2 tab Q4H PRN Administration Severe Pain (7-10) Atorvastatin Calcium 40 mg 05/11/20 21:00 05/12/20 20:25 Atorvastatin Calcium 40 Mg Tab PO 40 mg HS KENNY Administration Enoxaparin Sodium 40 mg 05/10/20 09:00 05/12/20 08:49 Enoxaparin Sodium 40 Mg/0.4 Ml Syringe SC 40 mg 0900 KENNY Administration Famotidine 20 mg 05/10/20 09:00 05/12/20 08:48 Famotidine/Pf 20 Mg/2ml Vial SLOW IVP 20 mg QAM KENNY Administration Fentanyl 25 mcg 05/10/20 07:21 05/11/20 05:46 Fentanyl 100 Mcg/2 Ml Vial SLOW IVP 25 mcg Q2H PRN Administration Mild Pain (1-3) Fentanyl 50 mcg 05/10/20 07:21 05/13/20 05:05 Fentanyl 100 Mcg/2 Ml Vial SLOW IVP 50 mcg Q2H PRN Administration Moderate to Severe Pain (6-10) Piperacillin Sod/Tazobactam 100 mls @ 200 mls/hr 05/11/20 18:00 05/13/20 05:06 Sod 3.375 gm/ Sodium Chloride IVPB 100 mls Q6HR KENNY Administration Mometasone Furoate/Formoterol Fumar 2 puff 05/11/20 18:30 05/13/20 07:27 Mometasone 200 Mcg/Formoterol 5 Mcg 120 Puff Inhaler INH 2 puff BID-RT KENNY Administration Montelukast Sodium 10 mg 05/11/20 21:00 05/12/20 20:25 Montelukast Sodium 10 Mg Tablet PO 10 mg HS KENNY Administration Nicotine 14 mg 05/10/20 16:00 05/12/20 16:28 Nicotine 14 Mg Patch TD 14 mg 1600 KENNY Administration Ondansetron HCl 4 mg 05/12/20 16:15 05/12/20 17:52 Ondansetron Pf 4 Mg/2 Ml Vial IVP 4 mg Q4H PRN Administration Nausea/Vomiting Sodium Chloride 10 ml 05/10/20 09:00 05/12/20 20:25 Flush - Normal Saline 10 Ml Syringe IVF Not Given Q12HR [facility] Verapamil HCl 180 mg 05/12/20 09:00 05/12/20 08:48 Verapamil Er 180 Mg Tab PO 180 mg DAILY KENNY Administration - Exam General Appearance: NAD, awake alert Heart: RRR, no murmur, no gallops, no rubs, normal peripheral pulses Respiratory: CTAB, no wheezes, no rales, no ronchi, normal chest expansion, no tachypnea, normal percussion Respiratory - other findings: +'ve rhonchorous upper respiratory sounds Gastrointestinal: soft, non-distended, normal bowel sounds, tender to palpation (Tenderness to LLQ and epigastric region) Neurological: cranial nerve grossly intact, normal sensation to touch, no weakness, no focal deficits, no new deficit Musculoskeletal: generalized weakness Psychiatric: normal affect, normal behavior, A&O x 3 Hosp A/P - Plan A/P: Patient with hx of metastatic stage IV lung CA on immunotherapy presents to ED with cc LLQ pain with initial CT abdomen showing well defined 3.2 cm diverticular abscess with walled-off perforation # Diverticular abscess: Non toxic appearing, leukocytosis resoved. Abdominal discomfort is only mild, some nausea but no vomiting. Per patient nausea worsend after narcotics. Advised to use Tylenol first. Decrease [place] frequency to Q6HR PRN. Per surgery continue with IV ABX over the weekend and repeat imaging on Thursday. If abscess appears to increase in size or clinical worsening surgery to re-evaluate case for IR drainage vs I&D by surgery. # Lung CA: Hx of stage IV CA. Continue with outpatient management. # COPD: No evidence of acute exacerbation. Continue with home inhalers. # Tachycardia: Chronic diagnosis but currently with normal HR. Continue with Verapamil. # HLD: Continue with statin. DISPOSITION: Awaiting imaging re-evaluation of diverticular abscess on Thursday; Surgery follows. Will possibly need rehab upon discharge; CM has been consulted.
[2020-05-13] MEDS: Enoxaparin Sodium 40 MG/0.4 ML SYRINGE SC SCH (08:11)
[2020-05-13] MEDS: Sodium Chloride 0.9% 1,000 ML IV SCH (08:11)
[2020-05-13] MEDS: Famotidine/PF 20 mg/2ml Vial SLOW IVP SCH (08:11)
[2020-05-13] MEDS: Ondansetron PF 4 MG/2 ML Vial IVP PRN ×2 (08:17→13:11)
[2020-05-13] MEDS ORDERED: Piperacillin/Tazobactam 3.375 GM VIAL ONE (12:58)
[2020-05-13] MEDS: Nicotine 14 MG PATCH TD SCH (15:47)
[2020-05-13] MEDS: Montelukast Sodium 10 mg Tablet PO SCH (20:34)
[2020-05-13] MEDS: Atorvastatin Calcium 40 MG TAB PO SCH (20:35)
[2020-05-13] MEDS: Acetaminophen 325 MG TAB PO PRN (20:45)
[2020-05-13] MEDS: Melatonin 3 MG TAB PO PRN (20:47)
[2020-05-14] MEDS: Sodium Chloride 0.9% 1,000 ML IV SCH ×2 (00:17→16:04)
[2020-05-14] MEDS: Piperacillin/Tazobactam 3.375 GM in Sodium Chloride 0.9% 100 ML IVPB SCH ×4 (00:19→18:13)
[2020-05-14 06:01] LABS: #Lymphocytes 1.1 thou/uL (1.20-3.40); #Monocytes 0.6 thou/uL (0.11-0.59); #Neutrophils 7.8 thou/uL (1.40-6.50); %Basophils 0.3 % (0.0-1.0); %Eosinophils 0.5 % (0.0-10.0); %Lymphocytes 11.7 % (21.0-51.0); %Monocytes 6.4 % (0.0-10.0); %Neutrophils 81.2 % (42.0-75.0); Hemoglobin 9.3 g/dL (12.0-16.0); Mean Corpuscular HGB CONC 32.9 g/dL (32.0-36.0); Mean Corpuscular Hemoglobin 32.7 pg (27.0-31.0); Mean Corpuscular Volume 99.2 fL (78.0-98.0); Mean Platelet Volume 6.1 fL (7.4-10.4); Platelet Count 296 thou/uL (130-400); RBC Distribution Width 21.5 % (11.5-14.5); Red Blood Cell (RBC) Count 2.84 mill/uL (4.20-5.40); White Blood Cell (WBC) Count 9.7 thou/uL (4.8-10.8)
[2020-05-14 06:21] LABS: Anion Gap 21 mmol/L (10-20); BUN (Urea Nitrogen) 5 mg/dL (9.8-20.1); Calc. Creatinine Clearance 73 mL/min (70-130); Calcium 7.7 mg/dL (7.8-10.44); Carbon Dioxide 16 mmol/L (23-31); Chloride 108 mmol/L (98-107); Glucose 71 mg/dL (83-110); Potassium 3.9 mmol/L (3.5-5.1); Sodium 141 mmol/L (136-145)
[2020-05-14] MEDS: Mometasone 200 MCG/Formoterol 5 MCG 120 PUFF INHALER INH SCH ×2 (07:26→18:33)
[2020-05-14] MEDS: Famotidine/PF 20 mg/2ml Vial SLOW IVP SCH (08:04)
--- NOTE | 2020-05-14 08:49 | PDOC.HOSPP ---
- Subjective Encounter Date: 05/14/20 Encounter Time: 11:00 Subjective: Patient with no more pain, though LLQ still sore. Nausea improved off the narcotic pain meds. Still having diarrhea that has been going on since admit. - Objective Vital Signs & Weight: Vital Signs (12 hours) Temp Pulse Resp BP Pulse Ox 05/14/20 07:55 98.0 F 87 18 147/76 H 97 05/14/20 04:00 97.8 F 80 16 119/71 94 L Weight Weight 134 lb 12.8 oz I&O: 05/13/20 05/14/20 05/15/20 06:59 06:59 06:59 Intake Total 1800 1300 Balance 1800 1300 Result Diagrams: 05/14/20 05:41 05/14/20 05:41 Hospitalist ROS - Review of Systems Constitutional: denies: fever, chills Respiratory: denies: cough, shortness of breath Cardiovascular: denies: chest pain, palpitations Gastrointestinal: reports: diarrhea. denies: nausea, vomiting - Medication Medications: Active Medications Generic Name Dose Route Start Last Admin Trade Name Freq PRN Reason Stop Dose Admin Acetaminophen 650 mg 05/13/20 15:45 05/13/20 20:45 Acetaminophen 325 Mg Tab PO 650 mg Q4H PRN Administration Headache/Fever or Pain Hydrocodone Bitart/Acetaminophen 2 tab 05/10/20 15:05 05/13/20 02:47 Hydrocodone/Acetaminophen 5/325 Mg Tablet PO 2 tab Q4H PRN Administration Severe Pain (7-10) Atorvastatin Calcium 40 mg 05/11/20 21:00 05/13/20 20:35 Atorvastatin Calcium 40 Mg Tab PO 40 mg HS KENNY Administration Enoxaparin Sodium 40 mg 05/10/20 09:00 05/13/20 08:11 Enoxaparin Sodium 40 Mg/0.4 Ml Syringe SC 40 mg 0900 KENNY Administration Famotidine 20 mg 05/10/20 09:00 05/14/20 08:04 Famotidine/Pf 20 Mg/2ml Vial SLOW IVP 20 mg QAM KENNY Administration Fentanyl 25 mcg 05/10/20 07:21 05/11/20 05:46 Fentanyl 100 Mcg/2 Ml Vial SLOW IVP 25 mcg Q2H PRN Administration Mild Pain (1-3) Fentanyl 50 mcg 05/10/20 07:21 05/13/20 05:05 Fentanyl 100 Mcg/2 Ml Vial SLOW IVP 50 mcg Q2H PRN Administration Moderate to Severe Pain (6-10) Piperacillin Sod/Tazobactam 100 mls @ 200 mls/hr 05/11/20 18:00 05/14/20 05:12 Sod 3.375 gm/ Sodium Chloride IVPB 100 mls Q6HR KENNY Administration Sodium Chloride 1,000 mls @ 75 mls/hr 05/13/20 07:49 05/14/20 00:17 Normal Saline 0.9% IV 1,000 mls .[id number] KENNY Administration Lorazepam 0.5 mg 05/11/20 14:27 05/13/20 13:11 Lorazepam 0.5 Mg Tab PO 0.5 mg HSPRN PRN Administration Anxiety Melatonin 3 mg 05/13/20 15:45 05/13/20 20:47 Melatonin 3 Mg Tab PO 3 mg HSPRN PRN Administration Insomnia Mometasone Furoate/Formoterol Fumar 2 puff 05/11/20 18:30 05/14/20 07:26 Mometasone 200 Mcg/Formoterol 5 Mcg 120 Puff Inhaler INH 2 puff BID-RT KENNY Administration Montelukast Sodium 10 mg 05/11/20 21:00 05/13/20 20:34 Montelukast Sodium 10 Mg Tablet PO 10 mg HS KENNY Administration Nicotine 14 mg 05/10/20 16:00 05/13/20 15:47 Nicotine 14 Mg Patch TD 14 mg 1600 KENNY Administration Ondansetron HCl 4 mg 05/12/20 16:15 05/13/20 13:11 Ondansetron Pf 4 Mg/2 Ml Vial IVP 4 mg Q4H PRN Administration Nausea/Vomiting Sodium Chloride 10 ml 05/10/20 09:00 05/14/20 08:04 Flush - Normal Saline 10 Ml Syringe IVF 10 ml Q12HR KENNY Administration Verapamil HCl 180 mg 05/12/20 09:00 05/14/20 08:05 Verapamil Er 180 Mg Tab PO 180 mg DAILY KENNY Administration - Exam General Appearance: NAD, awake alert ENT: moist mucosa Heart: RRR, no murmur, no gallops, no rubs Respiratory: CTAB, no wheezes, no rales, no ronchi Gastrointestinal: soft, non-distended, normal bowel sounds, no guarding, no rigidity Gastrointestinal - other findings: TTP LLQ, improved Psychiatric: normal affect, normal behavior, A&O x 3 Hosp A/P - Plan A/P: Patient with hx of metastatic stage IV lung CA on immunotherapy presents to ED with cc LLQ pain with initial CT abdomen showing well defined 3.2 cm diverticular abscess with walled-off perforation # Diverticular abscess: Non toxic appearing, leukocytosis resoved. Abdominal discomfort is only mild, some nausea but no vomiting. Per patient nausea worsend after narcotics. Advised to use Tylenol first. Decreased [place] frequency to Q6HR PRN. Per surgery continue with IV ABX over the weekend and repeat imaging today. If abscess appears to increase in size or clinical worsening surgery to re-evaluate case for IR drainage vs I&D by surgery. Otherwise can transition to oral antibiotics and d/c. # Lung CA: Hx of stage IV CA. Continue with outpatient management. # COPD: No evidence of acute exacerbation. Continue with home inhalers. # Tachycardia: Chronic diagnosis but currently with normal HR. Continue with Verapamil. # HLD: Continue with statin. DISPOSITION: Awaiting imaging re-evaluation of diverticular abscess today; Surgery following. Will need rehab upon discharge; CM has been consulted.
[2020-05-14] MEDS ORDERED: Iopamidol-370 76% 500 ML 1 ML ONE (09:14)
--- NOTE | 2020-05-14 10:23 | PDOC.GSPN ---
Surgery Progress Note: Subj - Subjective Patient reports: feels better, pain well controlled Narrative: Ms. Roy is feeling better today. Her nausea has resolved with stopping [place] and starting Tylenol and zofran instead. Her abdominal pain is much better; she reports only occasional pain and pain with sitting in certain positions. She feels much better. Surgery Progress Note: Obj - Vital signs Vital signs: Vital Signs - Most Recent Temp Pulse Resp BP Pulse Ox 98.0 F 87 18 147/76 H 97 05/14/20 07:55 05/14/20 07:55 05/14/20 07:55 05/14/20 07:55 05/14/20 07:55 - Physical Exam General: no distress, well nourished, no pain Abdomen: soft, non tender, nondistended Psychiatric: oriented to time, oriented to person, oriented to place, speech is normal Surgery Progress Note: Results - Labs Result Diagrams: 05/14/20 05:41 05/14/20 05:41 Lab results: Laboratory Results - last 12 hr 05/14/20 05/14/20 05:41 05:41 WBC 9.7 RBC 2.84 L Hgb 9.3 L Hct 28.2 L MCV 99.2 H MCH 32.7 H MCHC 32.9 RDW 21.5 H Plt Count 296 MPV 6.1 L Neutrophils % 81.2 H Lymphocytes % 11.7 L Monocytes % 6.4 Eosinophils % 0.5 Basophils % 0.3 Neutrophils # 7.8 H Lymphocytes # 1.1 L Monocytes # 0.6 H Eosinophils # 0.0 Basophils # 0.0 Sodium 141 Potassium 3.9 Chloride 108 H Carbon Dioxide 16 L Anion Gap 21 H BUN 5 L Creatinine 0.62 Estimated GFR (MDRD) Greater than 90 Glucose 71 L Calcium 7.7 L Surgery Progress Note: A/P - Problem (1) Colonic diverticular abscess Current Visit: Yes Code(s): K57.20 - DVTRCLI OF LG INT W PERFORATION AND ABSCESS W/O BLEEDING Status: Acute - Plan Plan: Her leukocytosis has resolved and her pain is better. We will wait for the CT scan results to see the next plan of action for Ms. Bernardo. This will help us determine if she will need IR abscess drainage, surgery, or if we can discharge her on antibiotics. Continue with Tylenol and zofran to control pain and nausea.
--- NOTE | 2020-05-14 12:21 | CT ---
CT abdomen and pelvis with IV and oral contrast HISTORY: Diverticular abscess. Follow-up. COMPARISON: 05/09/2020. FINDINGS: Small amount of bilateral pleural fluid is now apparent. Hyperdense stones present within t he dependent portion of the gallbladder lumen. Gallbladder now distended. Heterogeneous metastatic lesion in the left adrenal gland is unchanged in appearance. The large heter ogeneous aggressive mass at the lateral aspect left kidney measures up to 4.7 cm greatest oblique diameter on the coronal images. A 0.6 cm oval calcification is present within a nondilated calyx at t he inferior pole of the right kidney. Prominent calcification throughout the arterial structures. Small focus of gas within the right anter ior subcutaneous fat of the lower abdomen likely related to recent injection. Circumferential inflammation involving the upper sigmoid colon is again demonstrated. The gas and flu id collection associated with the inferior lateral margin of the area of inflammation measures up to 2.3 cm length by 2.4 cm width by 2.0 cm depth on today's exam, smaller than on the previous study. No free air or free fluid. Scattered diverticula arise from the colon. No evidence of bowel obstruction. Degenerative changes of the hips and lumbar spine. IMPRESSION : Slight interval decrease in size of sigmoid diverticular abscess. New small bilateral pleural effusions. Cholelithiasis. 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
[2020-05-14 12:25] VITALS: BMI 23.1
[2020-05-14] MEDS: Enoxaparin Sodium 40 MG/0.4 ML SYRINGE SC SCH ×2 (13:04→19:43)
[2020-05-14] MEDS: Acetaminophen 325 MG TAB PO PRN ×2 (15:42→21:17)
--- NOTE | 2020-05-14 15:43 | PRG ---
DATE OF SERVICE: 05/14/2020 SUBJECTIVE: Ms. Roy is having more diarrhea now, made worse by the CT scan this morning. On physical exam, her abdominal pain is improved in the left lower quadrant. She did have some cramping with the diarrhea. She is concerned because she is having a little bit incontinence with a more liquidy stool early this morning. Her C diff came back as negative. OBJECTIVE: VITAL SIGNS: She is afebrile. Her vital signs are stable. CHEST: Clear. HEART: Regular rate. ABDOMEN: Soft, minimally tender in left lower quadrant without guarding or rebound. LABORATORY DATA: White blood cell count is 9, hemoglobin is 9, creatinine is 0.62. ASSESSMENT: Diverticulitis with abscess, improved on CT scan. Improved clinically. Diarrhea associated with antibiotics. Clostridium difficile negative. PLAN: Resume full liquids today if she tolerates advance diet tomorrow, probably home in the next few days on oral antibiotics. Repeat scan in 3 to 4 weeks. Job ID: [id number]
[2020-05-14] MEDS: Nicotine 14 MG PATCH TD SCH (15:45)
[2020-05-14] MEDS: Melatonin 3 MG TAB PO PRN (21:18)
[2020-05-14] MEDS: Montelukast Sodium 10 mg Tablet PO SCH (21:19)
[2020-05-14] MEDS: Atorvastatin Calcium 40 MG TAB PO SCH (21:19)
[2020-05-15] MEDS: Acetaminophen 325 MG TAB PO PRN ×4 (01:08→19:48)
[2020-05-15] MEDS: Piperacillin/Tazobactam 3.375 GM in Sodium Chloride 0.9% 100 ML IVPB SCH ×5 (01:09→23:59)
[2020-05-15] MEDS: Sodium Chloride 0.9% 1,000 ML IV SCH ×2 (05:30→17:09)
[2020-05-15] MEDS: Ondansetron PF 4 MG/2 ML Vial IVP PRN ×2 (05:35→10:23)
--- NOTE | 2020-05-15 06:49 | PDOC.GSPN ---
Surgery Progress Note: Subj - Subjective Patient reports: pain well controlled, tolerating liquids well Narrative: Ms. Roy is a 75-year-old female is here for a diverticular abscess. She is s till having some diarrhea and incontinence; she reports that the stool is less watery today. She reports only occasional pain in her LLQ, and she did report some new mild epigastric pain that began this morning. Her pain has been well controlled with Tylenol, and her nausea is still controlled with zofran. She has tolerated a liquid diet well, and is going to have some solid food this morning for breakfast. She has no other new complaints. Surgery Progress Note: Obj - Vital signs Vital signs: Vital Signs - Most Recent Temp Pulse Resp BP Pulse Ox 97.8 F 84 16 148/77 H 94 L 05/15/20 05:15 05/15/20 05:15 05/15/20 05:15 05/15/20 05:15 05/15/20 05:15 - Physical Exam General: no distress, well developed, well nourished, moderate pain Cardiovascular: regular rate and rhythm Respiratory: clear to auscultation, breath sounds present Abdomen: soft, nondistended, positive bowel sounds, appropriately tender Surgery Progress Note: Results - Labs Result Diagrams: 05/14/20 05:41 05/14/20 05:41 Lab results: Laboratory Results - last 12 hr 05/14/20 19:50 POC Glucose 93 Surgery Progress Note: A/P - Problem (1) Colonic diverticular abscess Current Visit: Yes Code(s): K57.20 - DVTRCLI OF LG INT W PERFORATION AND ABSCESS W/O BLEEDING Status: Acute - Plan Plan: Ms. Roy is advancing her diet today, and we will monitor how well she tolerates this. Will continue with current medication regimen since pain and nausea are still under control. Discharge plans will be discussed with Dr. Mendez- per his note yesterday, he anticipates her to be discharged in a day or two on oral antibiotics. Addendum - Physician - Physician Attestation Date/Time: 05/15/20 [id number] I personally performed or re-performed the physical examination and medical decision making. I have verified all student documentation or findings, including history, physical exam and/or medical decision making. doing well. jud diet diarrhea improved Plan: switch IV to oral antibiotics tomorrow, to skilled on
--- NOTE | 2020-05-15 07:53 | PDOC.HOSPP ---
- Subjective Encounter Date: 05/15/20 Encounter Time: 10:30 Subjective: Patient tolerating advancing diet. Less diarrhea. Abdominal pain improved. - Objective Vital Signs & Weight: Vital Signs (12 hours) Temp Pulse Resp BP BP Pulse Ox 05/15/20 07:29 98.2 F 69 16 128/75 96 05/15/20 05:15 97.8 F 84 16 148/77 H 94 L 05/15/20 01:10 97.8 F 75 16 128/73 97 05/14/20 20:00 95 Weight Admit Weight 132 lb 1.6 oz Weight 134 lb 12.8 oz I&O: 05/14/20 05/15/20 05/16/20 06:59 06:59 06:59 Intake Total 1300 1780 Balance 1300 1780 Result Diagrams: 05/14/20 05:41 05/14/20 05:41 Additional Labs: Accuchecks 05/14/20 19:50 POC Glucose 93 Hospitalist ROS - Review of Systems Constitutional: denies: fever, chills Respiratory: denies: cough, shortness of breath Cardiovascular: denies: chest pain, palpitations Gastrointestinal: reports: abdominal pain, diarrhea. denies: nausea, vomiting, constipation - Medication Medications: Active Medications Generic Name Dose Route Start Last Admin Trade Name Freq PRN Reason Stop Dose Admin Acetaminophen 650 mg 05/13/20 15:45 05/15/20 05:34 Acetaminophen 325 Mg Tab PO 650 mg Q4H PRN Administration Headache/Fever or Pain Hydrocodone Bitart/Acetaminophen 2 tab 05/10/20 15:05 05/13/20 02:47 Hydrocodone/Acetaminophen 5/325 Mg Tablet PO 2 tab Q4H PRN Administration Severe Pain (7-10) Atorvastatin Calcium 40 mg 05/11/20 21:00 05/14/20 21:19 Atorvastatin Calcium 40 Mg Tab PO 40 mg HS KENNY Administration Enoxaparin Sodium 40 mg 05/10/20 09:00 05/14/20 19:43 Enoxaparin Sodium 40 Mg/0.4 Ml Syringe SC 40 mg 0900 KENNY Administration Famotidine 20 mg 05/10/20 09:00 05/14/20 08:04 Famotidine/Pf 20 Mg/2ml Vial SLOW IVP 20 mg QAM KENNY Administration Fentanyl 25 mcg 05/10/20 07:21 05/11/20 05:46 Fentanyl 100 Mcg/2 Ml Vial SLOW IVP 25 mcg Q2H PRN Administration Mild Pain (1-3) Fentanyl 50 mcg 05/10/20 07:21 05/13/20 05:05 Fentanyl 100 Mcg/2 Ml Vial SLOW IVP 50 mcg Q2H PRN Administration Moderate to Severe Pain (6-10) Piperacillin Sod/Tazobactam 100 mls @ 200 mls/hr 05/11/20 18:00 05/15/20 05:31 Sod 3.375 gm/ Sodium Chloride IVPB 100 mls Q6HR KENNY Administration Sodium Chloride 1,000 mls @ 75 mls/hr 05/13/20 07:49 05/15/20 05:30 Normal Saline 0.9% IV 1,000 mls .[id number] KENNY Administration Lorazepam 0.5 mg 05/11/20 14:27 05/13/20 13:11 Lorazepam 0.5 Mg Tab PO 0.5 mg HSPRN PRN Administration Anxiety Melatonin 3 mg 05/13/20 15:45 05/14/20 21:18 Melatonin 3 Mg Tab PO 3 mg HSPRN PRN Administration Insomnia Mometasone Furoate/Formoterol Fumar 2 puff 05/11/20 18:30 05/14/20 18:33 Mometasone 200 Mcg/Formoterol 5 Mcg 120 Puff Inhaler INH 2 puff BID-RT KENNY Administration Montelukast Sodium 10 mg 05/11/20 21:00 05/14/20 21:19 Montelukast Sodium 10 Mg Tablet PO 10 mg HS KENNY Administration Nicotine 14 mg 05/10/20 16:00 05/14/20 15:45 Nicotine 14 Mg Patch TD 14 mg 1600 KENNY Administration Ondansetron HCl 4 mg 05/12/20 16:15 05/15/20 05:35 Ondansetron Pf 4 Mg/2 Ml Vial IVP 4 mg Q4H PRN Administration Nausea/Vomiting Sodium Chloride 10 ml 05/10/20 09:00 05/14/20 21:20 Flush - Normal Saline 10 Ml Syringe IVF 10 ml Q12HR KENNY Administration Verapamil HCl 180 mg 05/12/20 09:00 05/14/20 08:05 Verapamil Er 180 Mg Tab PO 180 mg DAILY KENNY Administration - Exam General Appearance: NAD, awake alert ENT: moist mucosa Heart: RRR, no murmur, no gallops, no rubs Respiratory: CTAB, no wheezes, no rales, no ronchi Gastrointestinal: soft, non-distended, normal bowel sounds, no guarding, no rigidity Gastrointestinal - other findings: mild TTP LLQ Extremities: no edema Psychiatric: normal affect, normal behavior, A&O x 3 Hosp A/P - Plan A/P: Patient with hx of metastatic stage IV lung CA on immunotherapy presents to ED with cc LLQ pain with initial CT abdomen showing well defined 3.2 cm diverticular abscess with walled-off perforation # Diverticular abscess: Non toxic appearing, leukocytosis resoved. Abdominal discomfort is only mild, some nausea but no vomiting. Per patient nausea worsened after narcotics. Advised to use Tylenol first. Patient doing well with Tylenol and Zofran now. Continues to have diarrhea since before admission that is negative for C.diff. Tolerating full liquid diet and being advanced to solid food this AM. Repeat CT 05/14/2020 with decreasing size to the abscess. Plan is to transition to oral antibiotics when ok with surgery and discharge once placement arranged. # Lung CA: Hx of stage IV CA. Continue with outpatient management. # COPD: No evidence of acute exacerbation. Continue with home inhalers. # Tachycardia: Chronic diagnosis but currently with normal HR. Continue with Verapamil. # HLD: Continue with statin. DISPOSITION: Will need rehab upon discharge; CM has been consulted and is finding a location.
[2020-05-15] MEDS: Enoxaparin Sodium 40 MG/0.4 ML SYRINGE SC SCH (08:08)
[2020-05-15] MEDS: Famotidine/PF 20 mg/2ml Vial SLOW IVP SCH (08:08)
[2020-05-15] MEDS: Mometasone 200 MCG/Formoterol 5 MCG 120 PUFF INHALER INH SCH ×2 (10:40→19:00)
[2020-05-15] MEDS: Nicotine 14 MG PATCH TD SCH (17:06)
[2020-05-15] MEDS: Montelukast Sodium 10 mg Tablet PO SCH (19:48)
[2020-05-15] MEDS: Atorvastatin Calcium 40 MG TAB PO SCH (19:48)
[2020-05-16] MEDS: Sodium Chloride 0.9% 1,000 ML IV SCH (00:02)
[2020-05-16] MEDS: Ondansetron PF 4 MG/2 ML Vial IVP PRN ×3 (02:40→18:16)
[2020-05-16] MEDS: Acetaminophen 325 MG TAB PO PRN ×4 (02:40→20:38)
[2020-05-16] MEDS: Piperacillin/Tazobactam 3.375 GM in Sodium Chloride 0.9% 100 ML IVPB SCH (05:52)
[2020-05-16] MEDS: Mometasone 200 MCG/Formoterol 5 MCG 120 PUFF INHALER INH SCH ×2 (07:40→18:38)
[2020-05-16] MEDS: Enoxaparin Sodium 40 MG/0.4 ML SYRINGE SC SCH (08:20)
[2020-05-16] MEDS: Famotidine/PF 20 mg/2ml Vial SLOW IVP SCH (08:20)
[2020-05-16] MEDS ORDERED: Loratadine 10 MG TAB PO PRN (10:08)
[2020-05-16] MEDS ORDERED: Benzonatate 100 MG CAP PO PRN (10:08)
[2020-05-16] MEDS ORDERED: Diabetic Tussin 200 MG/10 ML UDCUP PO PRN (10:08)
[2020-05-16] MEDS ORDERED: Ondansetron ODT 4 MG TAB SL PRN (10:08)
[2020-05-16] MEDS ORDERED: hydrALAZINE 20 MG/ML VIAL SLOW IVP PRN (10:08)
[2020-05-16] MEDS ORDERED: Senokot S 8.6-50 MG TAB PO PRN (10:08)
[2020-05-16] MEDS ORDERED: Zolpidem Tartrate 5 MG TAB PO PRN (10:08)
[2020-05-16] MEDS ORDERED: Loperamide HCl 2 MG CAP PO PRN (10:08)
[2020-05-16] MEDS ORDERED: Sodium Chloride 0.65% Nasal 44 ML BOT EA NARE PRN (10:08)
[2020-05-16] MEDS ORDERED: Calcium Carbonate 500 MG ChewTAB PO PRN (10:08)
--- NOTE | 2020-05-16 10:12 | PDOC.HOSPP ---
- Subjective Encounter Date: 05/16/20 Encounter Time: 07:00 Subjective: Patient has diarrhea, no abdominal pain, no fever, she has cough productive of sputum, patient did physical therapy and walked around her room, no dizziness, - Objective Vital Signs & Weight: Vital Signs (12 hours) Temp Pulse Resp BP Pulse Ox 05/16/20 08:25 97 05/16/20 07:43 98.4 F 69 16 149/77 H 97 05/16/20 07:40 64 16 93 L Weight Admit Weight 132 lb 1.6 oz Weight 134 lb 12.8 oz I&O: 05/15/20 05/16/20 05/17/20 06:59 06:59 06:59 Intake Total 1780 1520 Balance 1780 1520 Result Diagrams: 05/14/20 05:41 05/14/20 05:41 Hospitalist ROS - Review of Systems Constitutional: denies: fever, chills, sweats, weakness, malaise, other ENT: denies: ear pain, ear discharge, nose pain, nose discharge, nose congestion, mouth pain, mouth swelling, throat pain, throat swelling, other Respiratory: reports: cough, sputum. denies: dry, shortness of breath, hemoptysis, SOB with excertion, pleuritic pain, wheezing, other Gastrointestinal: reports: diarrhea. denies: nausea, vomiting, abdominal pain, constipation, melena, hematochezia, other Genitourinary: denies: dysuria, frequency, incontinence, hematuria, retention, other Musculoskeletal: denies: neck pain, shoulder pain, arm pain, back pain, hand pain, leg pain, foot pain, other - Medication Medications: Active Medications Generic Name Dose Route Start Last Admin Trade Name Freq PRN Reason Stop Dose Admin Acetaminophen 650 mg 05/13/20 15:45 05/16/20 09:20 Acetaminophen 325 Mg Tab PO 650 mg Q4H PRN Administration Headache/Fever or Pain Hydrocodone Bitart/Acetaminophen 2 tab 05/10/20 15:05 05/13/20 02:47 Hydrocodone/Acetaminophen 5/325 Mg Tablet PO 2 tab Q4H PRN Administration Severe Pain (7-10) Atorvastatin Calcium 40 mg 05/11/20 21:00 05/15/20 19:48 Atorvastatin Calcium 40 Mg Tab PO 40 mg HS KENNY Administration Enoxaparin Sodium 40 mg 05/10/20 09:00 05/16/20 08:20 Enoxaparin Sodium 40 Mg/0.4 Ml Syringe SC 40 mg 0900 KENNY Administration Fentanyl 25 mcg 05/10/20 07:21 05/11/20 05:46 Fentanyl 100 Mcg/2 Ml Vial SLOW IVP 25 mcg Q2H PRN Administration Mild Pain (1-3) Fentanyl 50 mcg 05/10/20 07:21 05/13/20 05:05 Fentanyl 100 Mcg/2 Ml Vial SLOW IVP 50 mcg Q2H PRN Administration Moderate to Severe Pain (6-10) Lorazepam 0.5 mg 05/11/20 14:27 05/13/20 13:11 Lorazepam 0.5 Mg Tab PO 0.5 mg HSPRN PRN Administration Anxiety Melatonin 3 mg 05/13/20 15:45 05/14/20 21:18 Melatonin 3 Mg Tab PO 3 mg HSPRN PRN Administration Insomnia Mometasone Furoate/Formoterol Fumar 2 puff 05/11/20 18:30 05/16/20 07:40 Mometasone 200 Mcg/Formoterol 5 Mcg 120 Puff Inhaler INH 2 puff BID-RT KENNY Administration Montelukast Sodium 10 mg 05/11/20 21:00 05/15/20 19:48 Montelukast Sodium 10 Mg Tablet PO 10 mg HS KENNY Administration Nicotine 14 mg 05/10/20 16:00 05/15/20 17:06 Nicotine 14 Mg Patch TD 14 mg 1600 KENNY Administration Ondansetron HCl 4 mg 05/12/20 16:15 05/16/20 09:16 Ondansetron Pf 4 Mg/2 Ml Vial IVP 4 mg Q4H PRN Administration Nausea/Vomiting Sodium Chloride 10 ml 05/10/20 09:00 05/16/20 08:24 Flush - Normal Saline 10 Ml Syringe IVF 10 ml Q12HR KENNY Administration Verapamil HCl 180 mg 05/12/20 09:00 05/16/20 08:20 Verapamil Er 180 Mg Tab PO 180 mg DAILY KENNY Administration - Exam General Appearance: NAD, awake alert Eye: PERRL, anicteric sclera ENT: normocephalic atraumatic, no oropharyngeal lesions Neck: supple, symmetric, no JVD, no thyromegaly Heart: RRR, no murmur, no gallops, no rubs Respiratory: no wheezes, no rales, no ronchi Gastrointestinal: soft, non-tender, non-distended, normal bowel sounds Extremities: no cyanosis, no clubbing, no edema Skin: normal turgor, no lesions Neurological: no focal deficits Musculoskeletal: normal tone, normal strength, no muscle wasting Psychiatric: normal affect, normal behavior Hosp A/P (1) Colonic diverticular abscess Code(s): K57.20 - DVTRCLI OF LG INT W PERFORATION AND ABSCESS W/O BLEEDING Status: Acute Plan: When compared to CT abdomen and pelvis on May 09 and May 14 patient has decrease in the size of diverticular abscess, patient has responded to IV antibiotic therapy, today we will plan to change to oral Augmentin and Flagyl, patient has diarrhea so we will add probiotics, today we will change all medication to p.o. including Pepcid and Zofran and discontinue IV fluid and monitor 1 more day. 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 antibiotic with Augmentin and Flagyl Pepcid changed to p.o. Pepcid Symptomatic treatment for nausea diarrhea Add probiotics Patient already has approval to custodial home, based on surgeon recommendation will consider discharging her tomorrow Paperwork for discharge already done and kept in chart
[2020-05-16] MEDS ORDERED: metroNIDAZOLE 500 MG TAB PO SCH (15:00)
[2020-05-16] MEDS: Nicotine 14 MG PATCH TD SCH (16:23)
[2020-05-16] MEDS: Famotidine 20 MG TAB PO SCH ×2 (20:38→20:40)
[2020-05-16] MEDS: Amoxicillin/Potassium Clav 875 MG TAB PO SCH (20:38)
[2020-05-16] MEDS: Montelukast Sodium 10 mg Tablet PO SCH (20:38)
[2020-05-16] MEDS: Melatonin 3 MG TAB PO PRN (20:38)
[2020-05-16] MEDS: Atorvastatin Calcium 40 MG TAB PO SCH (20:38)
[2020-05-16] MEDS: Saccharomyces boulardii 250 MG CAP PO SCH (20:40)
[2020-05-17] MEDS: Ondansetron PF 4 MG/2 ML Vial IVP PRN ×3 (01:49→10:00)
[2020-05-17] MEDS: Acetaminophen 325 MG TAB PO PRN ×4 (05:14→22:21)
[2020-05-17] MEDS: Mometasone 200 MCG/Formoterol 5 MCG 120 PUFF INHALER INH SCH ×2 (07:17→18:32)
[2020-05-17] MEDS: Famotidine 20 MG TAB PO SCH ×2 (09:07→20:52)
[2020-05-17] MEDS: Saccharomyces boulardii 250 MG CAP PO SCH ×2 (09:08→20:52)
[2020-05-17] MEDS: Amoxicillin/Potassium Clav 875 MG TAB PO SCH ×2 (09:08→20:52)
[2020-05-17] MEDS: Enoxaparin Sodium 40 MG/0.4 ML SYRINGE SC SCH (09:08)
--- NOTE | 2020-05-17 10:34 | PDOC.DS.DS ---
Provider - Provider Date of Admission: 05/10/20 00:49 Date of Discharge: 05/17/20 Admitting Provider: Suzy Carpenter MD Consultations: General Surgery Primary Care Physician: Dionte Eelna MD Course - Hospital Course Hospital Course: Patient was admitted on May 10, 2020, patient presented with abdominal pain, patient has underlying history of stage IV lung cancer on immunotherapy, on admission patient had leukocytosis, hemoglobin 10.6, WBC count to 21,000, CT abdomen and pelvis showed well defined diverticular abscess/walled off perforation containing gas which has intramural component measuring about 3.2 cm, patient also had a Courtney lithiasis without cholecystitis, patient also has a left adrenal metastatic focus and bilateral renal mass which is not changed from previous, patient was admitted under medicine service we consulted general surgery, Dr. Wright was following and he recommended to continue conservative treatment with antibiotic therapy, we have treated her while in hospital with Zosyn and subsequently antibiotic therapy changed to Augmentin, patient had repeat CT abdomen and pelvis on May 14, 2020, which showed interval decrease in the size of sigmoid diverticular abscess, at this point patient is plan for oral antibiotic therapy for another 2 weeks, patient will need repeat imaging after 2 weeks, patient has clinical improvement, her WBC count improved to normal, her symptoms of nausea and vomiting treated symptomatically while in hospital, her C. difficile was negative, blood culture and urine culture negative, on discharge be changed to Augmentin and Flagyl for another 15 days, patient will follow up with general surgery at that time further decision will be made depending upon the clinical outcome with repeat imaging and evaluation with surgery or not. With help of onsite case manager we arranged prison home. Patient was planned for discharge yesterday on May 17 but as patient was not feeling good and she was having nausea so we started on Phenergan and after that patient had a good night sleep and no nausea and diarrhea, patient is more energetic and she is feeling good enough to go to prison home today. Patient seen and examined bedside today, Resuscitation Status: 05/10/20 14:37 Resuscitation Status Routine Resuscitation Status: DNAR: NO Resuscitation Discussed with: Patient - Labs Lab Results: 05/14/20 05:41 05/14/20 05:41 Microbiology - Entire Visit 05/09/20 22:55 Port - Left Internal Jugular Vein Blood Culture - Final NO GROWTH IN 5 DAYS 05/09/20 22:45 Port - Left Internal Jugular Vein Blood Culture - Final NO GROWTH IN 5 DAYS 05/14/20 09:00 Stool C. difficile GDH Antigen & Toxins - Final 05/09/20 23:42 Urine Straight Catheter Urine Culture - Final NO GROWTH AT 36 HOURS - Diagnostic Interpretation CT scan - Ab/Pelvis Status: image reviewed by me Additional comments: CT abdomen and pelvis initially showed 3.2 cm diverticular abscess Repeat CT abdomen and pelvis on May 14 showed decrease in size of abscess. - Physical Exam Vitals: Vital Signs (12 hours) Temp Pulse Resp BP Pulse Ox 05/17/20 07:12 98.2 F 68 16 131/75 96 Weight Admit Weight 132 lb 1.6 oz Weight 134 lb 12.8 oz Physical Exam: The patient was seen and examined on the day of discharge. General patient is currently alert and awake no acute distress Head normocephalic atraumatic Neck supple no JVD no meningeal signs of irritation Lungs coarse breath sound but no obvious rhonchi or rales Cardiac S1-S2 regular, no murmur no gallop no rub Abdomen soft, bowel sound present, nontender, no peritoneal sign, no rebound Extremity no edema good distal pulsation Skin no skin rash Hematological system no lymphadenopathy Neurologic nonfocal examination Problem - Problem (1) Colonic diverticular abscess Code(s): K57.20 - DVTRCLI OF LG INT W PERFORATION AND ABSCESS W/O BLEEDING Status: Acute (2) Lung mass Code(s): R91.8 - OTHER NONSPECIFIC ABNORMAL FINDING OF LUNG FIELD Status: Chronic Plan: Metastatic lung cancer (3) Hyperlipidemia Code(s): E78.5 - HYPERLIPIDEMIA, UNSPECIFIED Status: Chronic (4) Tobacco abuse Code(s): Z72.0 - TOBACCO USE Status: Chronic Plan - Discharge Medications Prescriptions: Promethazine [Phenergan] 25 mg PO Q6HR PRN #30 tab PRN Reason: Nausea/Vomiting Amoxicillin/Potassium Clav [Augmentin] 875 mg PO Q12HR #30 tab Saccharomyces boulardii [Florastor] 250 mg PO BID #30 cap Metronidazole [metroNIDAZOLE] 500 mg PO TID #45 tab Famotidine [Pepcid] 20 mg PO BID #30 tab Home Medications: Medication Instructions Recorded Confirmed Type Albuterol Sulfate [Albuterol 2 puff IH BID PRN 01/05/20 05/10/20 History Sulfate Hfa] Atorvastatin Calcium [Lipitor] 40 mg PO HS 01/05/20 05/10/20 History Montelukast Sodium 10 mg PO HS 01/05/20 05/10/20 History Verapamil ER [Calan ER] 180 mg PO DAILY 01/05/20 05/10/20 History Lorazepam [Ativan] 1 tab PO HS PRN 01/20/20 05/10/20 History Acetaminophen [Tylenol] 325 mg PO PRN PRN 05/10/20 05/10/20 History Budesonide-Formoterol [Symbicort 1 puff INH BID 05/10/20 05/10/20 History 160-4.5] Calcium Carbonate [Tums] 500 mg PO QID PRN 05/10/20 05/10/20 History Diphenoxylate HCl/Atropine 1 each PO TID 05/10/20 05/10/20 History [Diphenoxylate-Atrop 2.5-0.025] Melatonin 1 mg PO HS 05/10/20 05/10/20 History Nicotine [Nicotine Patch] 1 patch TD DAILY 05/10/20 05/10/20 History Ondansetron [Zofran ODT] 8 mg PO TID PRN 05/10/20 05/10/20 History Amoxicillin/Potassium Clav 875 mg PO Q12HR #30 tab 05/17/20 Rx [Augmentin] Famotidine [Pepcid] 20 mg PO BID #30 tab 05/17/20 Rx Metronidazole [metroNIDAZOLE] 500 mg PO TID #45 tab 05/17/20 Rx Saccharomyces boulardii [Florastor] 250 mg PO BID #30 cap 05/17/20 Rx Promethazine [Phenergan] 25 mg PO Q6HR PRN #30 tab 05/18/20 Rx Allergies: Sulfa (Sulfonamide Antibiotics) Allergy (Verified 01/20/20 12:07) - Discharge Instructions Activity:: Activity as Tolerated Nourishment:: Heart Healthy Diet Therapies:: Occupational Therapy, Physical Therapy Equipment/Supplies:: Not Applicable IV Therapy:: Not Applicable - Follow up Plan Referrals: Dionte Elena MD [Primary Care Provider] - Guille Mendez MD [Active] - Disposition: SNF FACILITY Quality - Care Measures CORE MEASURES:: N/A
--- NOTE | 2020-05-17 10:36 | PDOC.HOSPP ---
- Subjective Encounter Date: 05/17/20 Encounter Time: 10:34 Subjective: Patient seen and examined bedside today, this morning patient was having some nausea, no fever, no diarrhea, - Objective Vital Signs & Weight: Vital Signs (12 hours) Temp Pulse Resp BP Pulse Ox 05/17/20 07:12 98.2 F 68 16 131/75 96 Weight Admit Weight 132 lb 1.6 oz Weight 134 lb 12.8 oz I&O: 05/16/20 05/17/20 05/18/20 06:59 06:59 06:59 Intake Total 1520 1320 Balance 1520 1320 Result Diagrams: 05/14/20 05:41 05/14/20 05:41 Hospitalist ROS - Review of Systems Eyes: denies: pain, vision change, conjunctivae inflammation, eyelid inflammation, redness, other ENT: denies: ear pain, ear discharge, nose pain, nose discharge, nose congestion, mouth pain, mouth swelling, throat pain, throat swelling, other Respiratory: denies: cough, dry, shortness of breath, hemoptysis, SOB with excertion, pleuritic pain, sputum, wheezing, other Cardiovascular: denies: chest pain, palpitations, orthopnea, paroxysmal noc. dyspnea, edema, light headedness, other Gastrointestinal: reports: nausea. denies: vomiting, abdominal pain, diarrhea, constipation, melena, hematochezia, other Genitourinary: denies: dysuria, frequency, incontinence, hematuria, retention, other Musculoskeletal: denies: neck pain, shoulder pain, arm pain, back pain, hand pain, leg pain, foot pain, other Skin: denies: rash, lesions, gonzales, bruising, other - Medication Medications: Active Medications Generic Name Dose Route Start Last Admin Trade Name Freq PRN Reason Stop Dose Admin Acetaminophen 650 mg 05/13/20 15:45 05/17/20 05:14 Acetaminophen 325 Mg Tab PO 650 mg Q4H PRN Administration Headache/Fever or Pain Hydrocodone Bitart/Acetaminophen 2 tab 05/10/20 15:05 05/13/20 02:47 Hydrocodone/Acetaminophen 5/325 Mg Tablet PO 2 tab Q4H PRN Administration Severe Pain (7-10) Amoxicillin/Clavulanate Potassium 875 mg 05/16/20 21:00 05/17/20 09:08 Amoxicillin/Potassium Clav 875 Mg Tab PO 875 mg Q12HR KENNY Administration Atorvastatin Calcium 40 mg 05/11/20 21:00 05/16/20 20:38 Atorvastatin Calcium 40 Mg Tab PO 40 mg HS KENNY Administration Enoxaparin Sodium 40 mg 05/10/20 09:00 05/17/20 09:08 Enoxaparin Sodium 40 Mg/0.4 Ml Syringe SC 40 mg 0900 KENNY Administration Famotidine 20 mg 05/16/20 21:00 05/17/20 09:07 Famotidine 20 Mg Tab PO 20 mg BID KENNY Administration Fentanyl 25 mcg 05/10/20 07:21 05/11/20 05:46 Fentanyl 100 Mcg/2 Ml Vial SLOW IVP 25 mcg Q2H PRN Administration Mild Pain (1-3) Fentanyl 50 mcg 05/10/20 07:21 05/13/20 05:05 Fentanyl 100 Mcg/2 Ml Vial SLOW IVP 50 mcg Q2H PRN Administration Moderate to Severe Pain (6-10) Lorazepam 0.5 mg 05/11/20 14:27 05/13/20 13:11 Lorazepam 0.5 Mg Tab PO 0.5 mg HSPRN PRN Administration Anxiety Melatonin 3 mg 05/13/20 15:45 05/16/20 20:38 Melatonin 3 Mg Tab PO 3 mg HSPRN PRN Administration Insomnia Mometasone Furoate/Formoterol Fumar 2 puff 05/11/20 18:30 05/17/20 07:17 Mometasone 200 Mcg/Formoterol 5 Mcg 120 Puff Inhaler INH 2 puff BID-RT KENNY Administration Montelukast Sodium 10 mg 05/11/20 21:00 05/16/20 20:38 Montelukast Sodium 10 Mg Tablet PO 10 mg HS KENNY Administration Nicotine 14 mg 05/10/20 16:00 05/16/20 16:23 Nicotine 14 Mg Patch TD 14 mg 1600 KENNY Administration Ondansetron HCl 4 mg 05/12/20 16:15 05/17/20 10:00 Ondansetron Pf 4 Mg/2 Ml Vial IVP 4 mg Q4H PRN Administration Nausea/Vomiting Saccharomyces Boulardii 250 mg 05/16/20 21:00 05/17/20 09:08 Saccharomyces Boulardii 250 Mg Cap PO 250 mg BID KENNY Administration Sodium Chloride 10 ml 05/10/20 09:00 05/17/20 09:10 Flush - Normal Saline 10 Ml Syringe IVF 10 ml Q12HR KENNY Administration Verapamil HCl 180 mg 05/12/20 09:00 05/17/20 09:07 Verapamil Er 180 Mg Tab PO 180 mg DAILY KENNY Administration - Exam General Appearance: NAD, awake alert Eye: PERRL, anicteric sclera ENT: normocephalic atraumatic, no oropharyngeal lesions Neck: supple, symmetric, no JVD Heart: RRR, no murmur, no gallops, no rubs Respiratory: no wheezes, no rales, no ronchi Respiratory - other findings: Coarse breath sound Gastrointestinal: soft, non-tender, non-distended, normal bowel sounds Extremities: no cyanosis, no clubbing, no edema Skin: normal turgor, no lesions Neurological: no focal deficits Musculoskeletal: normal tone, normal strength Psychiatric: normal affect, normal behavior Hosp A/P (1) Colonic diverticular abscess Code(s): K57.20 - DVTRCLI OF LG INT W PERFORATION AND ABSCESS W/O BLEEDING Status: Acute (2) Lung mass Code(s): R91.8 - OTHER NONSPECIFIC ABNORMAL FINDING OF LUNG FIELD Status: Chronic (3) Hyperlipidemia Code(s): E78.5 - HYPERLIPIDEMIA, UNSPECIFIED Status: Chronic (4) Tobacco abuse Code(s): Z72.0 - TOBACCO USE Status: Chronic - Plan old records reviewed/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
[2020-05-17] MEDS ORDERED: Promethazine 25 MG TAB PO PRN (15:06)
[2020-05-17] MEDS ORDERED: Saccharomyces boulardii 250 MG CAP PO SCH (15:15)
[2020-05-17] MEDS: Nicotine 14 MG PATCH TD SCH (15:18)
--- NOTE | 2020-05-17 15:36 | PRG ---
DATE OF SERVICE: 05/17/2020 SUBJECTIVE: Ms. Roy nausea today, likely secondary to Augmentin. She has continued to have loose stools, they alternate between mostly liquid and mush. She does not have any abdominal pain. OBJECTIVE: VITAL SIGNS: She is afebrile. Vital signs are stable. ABDOMEN: Soft, appropriately tender. No guarding or rebound. ASSESSMENT: Resolving diverticulitis with abscess. PLAN: One more night in the hospital, to care home tomorrow. She would like to try Phenergan as well, we will add that p.o. Added Florastor. I explained to her and her daughter that any of the antibiotics we prescribed for GI type bugs, will cause some nausea. If it persists more than next few days, we could switch it to Levaquin and Flagyl. The plan is for her to go to care home tomorrow though. Job ID: [id number]
[2020-05-17] MEDS: Atorvastatin Calcium 40 MG TAB PO SCH (20:52)
[2020-05-17] MEDS: Montelukast Sodium 10 mg Tablet PO SCH (20:52)
[2020-05-18] MEDS: Acetaminophen 325 MG TAB PO PRN ×2 (04:48→10:49)
[2020-05-18] MEDS: Saccharomyces boulardii 250 MG CAP PO SCH (08:48)
[2020-05-18] MEDS: Amoxicillin/Potassium Clav 875 MG TAB PO SCH (08:48)
[2020-05-18] MEDS: Famotidine 20 MG TAB PO SCH (08:48)
[2020-05-18] MEDS: Enoxaparin Sodium 40 MG/0.4 ML SYRINGE SC SCH (08:48)
[2020-05-18] MEDS: Mometasone 200 MCG/Formoterol 5 MCG 120 PUFF INHALER INH SCH (08:58)
[2020-05-18] MEDS ORDERED: Saccharomyces boulardii 250 MG CAP PO SCH (09:00)
--- NOTE | 2020-05-18 09:59 | PDOC.HOSPP ---
- Subjective Encounter Date: 05/18/20 Encounter Time: 09:00 Subjective: Patient seen and examined. No new complaints. No overnight events - Objective Vital Signs & Weight: Vital Signs (12 hours) Temp Pulse Resp BP Pulse Ox 05/18/20 07:42 97.7 F 78 18 129/74 97 Weight Admit Weight 132 lb 1.6 oz Weight 134 lb 12.8 oz I&O: 05/17/20 05/18/20 05/19/20 06:59 06:59 06:59 Intake Total 1320 1100 Balance 1320 1100 Result Diagrams: 05/14/20 05:41 05/14/20 05:41 Additional Labs: Accuchecks 05/17/20 16:39 POC Glucose 93 Hospitalist ROS - Review of Systems ENT: denies: ear pain, ear discharge, nose pain, nose discharge, nose congestion, mouth pain, mouth swelling, throat pain, throat swelling, other Respiratory: denies: cough, dry, shortness of breath, hemoptysis, SOB with excertion, pleuritic pain, sputum, wheezing, other Cardiovascular: denies: chest pain, palpitations, orthopnea, paroxysmal noc. dyspnea, edema, light headedness, other Gastrointestinal: denies: nausea, vomiting, abdominal pain, diarrhea, constipation, melena, hematochezia, other Genitourinary: denies: dysuria, frequency, incontinence, hematuria, retention, other Musculoskeletal: denies: neck pain, shoulder pain, arm pain, back pain, hand pain, leg pain, foot pain, other - Medication Medications: Active Medications Generic Name Dose Route Start Last Admin Trade Name Freq PRN Reason Stop Dose Admin Acetaminophen 650 mg 05/13/20 15:45 05/18/20 04:48 Acetaminophen 325 Mg Tab PO 650 mg Q4H PRN Administration Headache/Fever or Pain Hydrocodone Bitart/Acetaminophen 2 tab 05/10/20 15:05 05/13/20 02:47 Hydrocodone/Acetaminophen 5/325 Mg Tablet PO 2 tab Q4H PRN Administration Severe Pain (7-10) Amoxicillin/Clavulanate Potassium 875 mg 05/16/20 21:00 05/18/20 08:48 Amoxicillin/Potassium Clav 875 Mg Tab PO 875 mg Q12HR KENNY Administration Atorvastatin Calcium 40 mg 05/11/20 21:00 12/17/20 20:52 Atorvastatin Calcium 40 Mg Tab PO 40 mg HS KENNY Administration Enoxaparin Sodium 40 mg 05/10/20 09:00 05/18/20 08:48 Enoxaparin Sodium 40 Mg/0.4 Ml Syringe SC 40 mg 0900 KENNY Administration Famotidine 20 mg 05/16/20 21:00 05/18/20 08:48 Famotidine 20 Mg Tab PO 20 mg BID KENNY Administration Fentanyl 25 mcg 05/10/20 07:21 05/11/20 05:46 Fentanyl 100 Mcg/2 Ml Vial SLOW IVP 25 mcg Q2H PRN Administration Mild Pain (1-3) Fentanyl 50 mcg 05/10/20 07:21 05/13/20 05:05 Fentanyl 100 Mcg/2 Ml Vial SLOW IVP 50 mcg Q2H PRN Administration Moderate to Severe Pain (6-10) Lorazepam 0.5 mg 05/11/20 14:27 05/13/20 13:11 Lorazepam 0.5 Mg Tab PO 0.5 mg HSPRN PRN Administration Anxiety Melatonin 3 mg 05/13/20 15:45 05/16/20 20:38 Melatonin 3 Mg Tab PO 3 mg HSPRN PRN Administration Insomnia Mometasone Furoate/Formoterol Fumar 2 puff 05/11/20 18:30 05/18/20 08:58 Mometasone 200 Mcg/Formoterol 5 Mcg 120 Puff Inhaler INH 2 puff BID-RT KENNY Administration Montelukast Sodium 10 mg 05/11/20 21:00 05/17/20 20:52 Montelukast Sodium 10 Mg Tablet PO 10 mg HS KENNY Administration Nicotine 14 mg 05/10/20 16:00 05/17/20 15:18 Nicotine 14 Mg Patch TD 14 mg 1600 KENNY Administration Ondansetron HCl 4 mg 05/12/20 16:15 05/17/20 10:00 Ondansetron Pf 4 Mg/2 Ml Vial IVP 4 mg Q4H PRN Administration Nausea/Vomiting Promethazine HCl 25 mg 05/17/20 15:06 05/17/20 20:52 Promethazine 25 Mg Tab PO 25 mg Q6H PRN Administration Nausea/Vomiting Saccharomyces Boulardii 250 mg 05/16/20 21:00 05/18/20 08:48 Saccharomyces Boulardii 250 Mg Cap PO 250 mg BID KENNY Administration Sodium Chloride 10 ml 05/10/20 09:00 05/18/20 08:49 Flush - Normal Saline 10 Ml Syringe IVF 10 ml Q12HR KENNY Administration Verapamil HCl 180 mg 05/12/20 09:00 05/18/20 08:48 Verapamil Er 180 Mg Tab PO 180 mg DAILY KENNY Administration - Exam General Appearance: NAD, awake alert Eye: PERRL, anicteric sclera ENT: normocephalic atraumatic, no oropharyngeal lesions Neck: supple, symmetric, no JVD, no thyromegaly Heart: RRR, no murmur, no gallops, no rubs Respiratory: no wheezes, no rales, no ronchi Gastrointestinal: soft, non-tender, non-distended, normal bowel sounds Extremities: no cyanosis, no clubbing Skin: normal turgor, no lesions Neurological: no focal deficits Musculoskeletal: normal tone, normal strength Psychiatric: normal affect, normal behavior Hosp A/P (1) Colonic diverticular abscess Code(s): K57.20 - DVTRCLI OF LG INT W PERFORATION AND ABSCESS W/O BLEEDING Status: Acute (2) Lung mass Code(s): R91.8 - OTHER NONSPECIFIC ABNORMAL FINDING OF LUNG FIELD Status: Chronic (3) Hyperlipidemia Code(s): E78.5 - HYPERLIPIDEMIA, UNSPECIFIED Status: Chronic (4) Tobacco abuse Code(s): Z72.0 - TOBACCO USE Status: Chronic - Plan old records reviewed/req, 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
[2020-05-18 13:18] VITALS: BP 123/72; TEMP 98.2
--- NOTE | 2020-05-19 15:05 | EKG ---
Test Reason : Blood Pressure : / mmHG Vent. Rate : 084 BPM Atrial Rate : 084 BPM P-R Int : 214 ms QRS Dur : 086 ms QT Int : 404 ms P-R-T Axes : 077 052 061 degrees QTc Int : 477 ms Sinus rhythm with 1st degree A-V block Nonspecific ST abnormality Abnormal ECG Confirmed by MARK MCGUIRE ([id number]), industrial editor DEVONTE VALLADARES ([id number]) on 05/19/2020 3:05:07 PM Referred By: Confirmed By:MARK MCGUIRE
--- NOTE | 2020-05-21 07:29 | PQF ---
CLINICAL DOCUMENTATION CLARIFICATION FORM: Dear : Melany Martines Date / Time: 05/21/2020 07:29 Please exercise your independent, professional judgment in responding to the clarification form. Clinical indicators are provided on the bottom of this form for your review Please check appropriate box(s): [ ] Septic Shock [ ] Shock Unspecified [ x] Other diagnosis, please specify __diverticulitis with abscess, sepsis but no septic shock, no organ dysfunction [ ] Unable to determine In addition, please specify: Present on Admission (POA): [ x ] Yes [ ] No [ ] Unable to determine Physician Signature: Date/Time: For continuity of documentation, please document condition throughout progress notes and discharge summary. Thank You. To be completed by CDI/Coding staff for physician review: Present Clinical Indicators - Signs / Symptoms / Labs Results and Location in Medical Record [x] BP: 05/10=94/57 05/1151=485/59 Vital Signs 05/10 [x] CC: abdominal pain HP 05/10 [x] Acute diverticulitis with asbcess HP 05/10 [x] Sepsis HP 05/10 [x] WBC: 05/01=21.0 05/10=11.9 Laboratory 05/01 Present Risk Factors Results and Location in Medical Record [X] 75 years old female ED Notes 05/10 [X] Lung cancer ED Notes 05/10 [X] Sepsis ED Notes 05/10 [X] Acute diverticulitis with asbcess ED Notes 05/10 [X] Smoker HP 05/10 Present Treatments Results and Location in Medical Record [x] IVF HP 05/10 [x] Zosyn 4.5gm IV AUG 10 [x] Flagy 500mg IV AUG 10 [x] Cefepime 2 gm IV AUG 10 CDS/Team Manager Signature:Arelisbassam Ivy Gleason Phone #: [phone] Date/Time: 05/21/2020 This is a permanent part of the Medical Record [facility]
== END 2020-05-18 13:05 | DRG 872 ==
LOC: ERS 19:18 → ERHOLD 05-10 00:49 → T4-A 05-10 06:28
PROVIDERS: ADMIT Internal Medicine; ATTEND Internal Medicine
DX: A41.9 Sepsis, unspecified organism (principal); C34.90 Malignant neoplasm of unspecified part of unspecified bronchus or lung; C78.89 Secondary malignant neoplasm of other digestive organs; C79.00 Secondary malignant neoplasm of unspecified kidney and renal pelvis; K57.20 Diverticulitis of large intestine with perforation and abscess without bleeding; K52.1 Toxic gastroenteritis and colitis; Z66 Do not resuscitate; Z20.828 Contact with and (suspected) exposure to other viral communicable diseases; E78.5 Hyperlipidemia, unspecified; E78.00 Pure hypercholesterolemia, unspecified; I10 Essential (primary) hypertension; F17.210 Nicotine dependence, cigarettes, uncomplicated; T36.95XA Adverse effect of unspecified systemic antibiotic, initial encounter; K80.20 Calculus of gallbladder without cholecystitis without obstruction; Z85.828 Personal history of other malignant neoplasm of skin; Z90.49 Acquired absence of other specified parts of digestive tract; Z88.2 Allergy status to sulfonamides; Z79.51 Long term (current) use of inhaled steroids; Z79.899 Other long term (current) drug therapy
CPT/HCPCS: 36415; 36416; 51701; 74177; 80048; 80053; 81003; 82248; 83605; 83615; 83690; 83735; 84100; 84436; 84443; 84550; 85025; 87086; 87324; 87449; 87635; 93005; 96361; 96365; 96375; J0692; J1650; J2270; J2405; J2543; J3010; J3490; Q0169; Q9967; S0028; U0003

== ENCOUNTER 2020-07-01 12:52 | Inpatient (IN) | payer MEDICARE, BC ==
[2020-07-01] MEDS ORDERED: Ondansetron PF 4 MG/2 ML Vial ONE (13:42)
[2020-07-01] MEDS ORDERED: Fentanyl 100 MCG/2 ML VIAL ONE (13:42)
[2020-07-01 14:18] LABS: #Basophils 0.1 thou/uL (0.0-0.2); #Eosinphils 0.1 thou/uL (0.0-0.7); #Lymphocytes 1.1 thou/uL (1.20-3.40); #Monocytes 0.6 thou/uL (0.11-0.59); %Basophils 0.7 % (0.0-1.0); %Eosinophils 0.9 % (0.0-10.0); %Lymphocytes 14.2 % (21.0-51.0); %Neutrophils 76.2 % (42.0-75.0); Hemoglobin 10.5 g/dL (12.0-16.0); Mean Corpuscular HGB CONC 34.7 g/dL (32.0-36.0); Mean Corpuscular Hemoglobin 35.7 pg (27.0-31.0); Mean Platelet Volume 5.8 fL (7.4-10.4); Platelet Count 242 thou/uL (130-400); RBC Distribution Width 14.3 % (11.5-14.5); Red Blood Cell (RBC) Count 2.94 mill/uL (4.20-5.40); White Blood Cell (WBC) Count 7.9 thou/uL (4.8-10.8)
[2020-07-01 14:33] LABS: ALT (SGPT) 40 U/L (8-55); AST (SGOT) 22 U/L (5-34); Albumin 3.5 g/dL (3.4-4.8); Alkaline Phosphatase 75 U/L (40-110); Anion Gap 15 mmol/L (10-20); BUN (Urea Nitrogen) 17 mg/dL (9.8-20.1); Bilirubin, Total 0.4 mg/dL (0.2-1.2); Calc. Creatinine Clearance 0 mL/min (70-130); Calcium 9.5 mg/dL (7.8-10.44); Carbon Dioxide 19 mmol/L (23-31); Chloride 107 mmol/L (98-107); Globulin 3.7 g/dL (2.4-3.5); Glucose 98 mg/dL (83-110); Potassium 4.1 mmol/L (3.5-5.1); Protein, Total 7.2 g/dL (5.8-8.1); Sodium 137 mmol/L (136-145)
[2020-07-01 15:43] LABS: Bacteria/HPF 3+ HPF (None Seen); Bilirubin Negative (Negative); Clarity Turbid (Clear); Glucose, Urine (Dipstick) Normal (Negative); Ketone, Urine Negative (Negative); Leukocyte 500 Leu/uL (Negative); Nitrite 1+ (Negative); Protein, Urine (Dipstick) 20 mg/dL (Neg-Trace); Specific Gravity, Urine 1.019 (1.002-1.036); Squamous Epithelial 0-3 HPF (0-3); Transitional Epithelial 0-3 HPF (None Seen); Urobilinogen Normal mg/dL (Less than 2); WBC/HPF Greater than 50 HPF (0-3)
[2020-07-01 15:45] LABS: Blood, Urine 1+ (Negative)
--- NOTE | 2020-07-01 15:59 | CT ---
EXAM: Abdomen and pelvic CT scan with contrast: HISTORY: Abdominal pain history of metastatic cancer prior diverticulitis and abscess COMPARISON: 05/30/2020 FINDINGS: Lungs:No significant acute process. Liver: Unremarkable. Gallbladder:Cholelithiasis without acute cholecystitis. Common bile duct:Normal Pancreas:Unremarkable Spleen:Unremarkable. Adrenal glands:Left adrenal mass now measuring 3 cm in diameter increasing in size from the 2.4 cm at the prior study. Kidneys:Nonobstructing right renal calculus but no obstruction. Multiple abnormal masses within the right kidney one superiorly and one more inferiorly, the more sup erior mass now measures 3.4 x 3.7 cm compared to 3.2 x 3.3 cm on the prior study in the lower mass now measures 3.2 x 3.9 cm where it previously measured 2.9 cm. Small low-attenuation mass in the righ t upper kidney appears overall stable. Minimal left periaortic adenopathy increasing from approximately 0.8 cm to now 1.0 cm. No evidence for bowel obstruction. Aorta:No evidence for aneurysm. Spine:No significant acute process. No CT evidence for acute appendicitis. The urinary bladder is unremarkable. Reproductive system:Unremarkable as visualized. Hernias:None 4.4 x 4.7 cm diameter complex mass evidence for an abscess in the left adnexal region adjacent to the left sigmoid colon. This previously measured approximately 3.5 x 3.8 cm showing a definite increase in size. No evidence for significant free fluid. IMPRESSION: Enlarging left adrenal mass and left renal masses. Enlarging left diverticular abscess in the left adnexal region adjacent to the sigmoid colon. Other findings as above.
--- NOTE | 2020-07-01 16:30 | PDOC.FPRHP ---
- History of Present Illness Chief Complaint: abdominal pain History of Present Illness: Pt is a 75 yo F with pmh of stage IV lung cancer who presents for LLQ, constipation, and nausea from [facility]. She had a Keytruda treatment on Thursday and she started developing the pain after. She thought it was a side effect from the tx but the pain got worse and started feeling more like the pain she had 1mo ago when she was seen here with diverticulitis with an abscess. At that time, she wsa evaluated by Dr. Mendez who determined she was not a good surgical candidate and attempted medical management. She has f/u with him since then and has been on Augmentin and Flagyl. She had a repeat CT scheduled with him on 07/05. The pain and nausea were mildly responsive to Tylenol and Zofran. In the ED, she received Fentanyl, Zofran, Zosyn, and 1L NS bolus. At the time of assessment her pain was 7/10. In the ED she was found to have a UA c/w UTI. She denies dysuria, fever/chills, back pain but endorses polyuria. ED Course: 1L NS, Zofran, Fentanyl, Zosyn - Allergies/Adverse Reactions Allergies Allergy/AdvReac Type Severity Reaction Status Date / Time Sulfa (Sulfonamide Allergy Verified 07/01/20 19:32 Antibiotics) - Home Medications Medication Instructions Recorded Confirmed Type Albuterol Sulfate [Albuterol 2 puff IH BID PRN 01/05/20 07/01/20 History Sulfate Hfa] Atorvastatin Calcium [Lipitor] 40 mg PO HS 01/05/20 07/01/20 History Montelukast Sodium 10 mg PO HS 01/05/20 07/01/20 History Verapamil ER [Calan ER] 180 mg PO DAILY 01/05/20 07/01/20 History Lorazepam [Ativan] 1 tab PO HS PRN 01/20/20 07/01/20 History Acetaminophen [Tylenol] 325 mg PO PRN PRN 05/10/20 07/01/20 History Budesonide-Formoterol [Symbicort 1 puff INH BID 05/10/20 07/01/20 History 160-4.5] Calcium Carbonate [Tums] 500 mg PO QID PRN 05/10/20 07/01/20 History Diphenoxylate HCl/Atropine 1 each PO TID 05/10/20 07/01/20 History [Diphenoxylate-Atrop 2.5-0.025] Melatonin 1 mg PO HS 05/10/20 07/01/20 History Nicotine [Nicotine Patch] 1 patch TD DAILY 05/10/20 07/01/20 History Ondansetron [Zofran ODT] 8 mg PO TID PRN 05/10/20 07/01/20 History Famotidine [Pepcid] 20 mg PO BID #30 tab 05/17/20 07/01/20 Rx Saccharomyces boulardii [Florastor] 250 mg PO BID #30 cap 05/17/20 07/01/20 Rx Promethazine [Phenergan] 25 mg PO Q6HR PRN #30 tab 05/18/20 07/01/20 Rx - History PMHx: Hx of diverticulitis w abscess, Insomnia, COPD, GERD, sinus tachycardia, H LD, HTN, stage 4 lung cancer receiving chemo PSHx: Tonsillectomy, Removal of multiple skin cancers, Appendectomy, Milk Duct Abscess FHx: None Social: Stopped smoking 1 month ago, smoked for more than 50 years 1 PPD. No alcohol or recreational drugs. Lives at [facility] - Review of Systems General: reports: weight/appetite/sleep changes. denies: fever/chills Eyes: denies: vision changes ENT: denies: nasal congestion Respiratory: reports: cough (c/w hx of lung cancer), shortness of breath Cardiovascular: denies: chest pain, edema Gastrointestinal: reports: nausea, constipation, abdominal pain. denies: vomiting, diarrhea Genitourinary: reports: polyuria. denies: dysuria Skin: denies: rashes Musculoskeletal: denies: pain, tenderness Neurological: denies: numbness, weakness - Vital signs BP: 127/80, Pulse: 103, Resp: 16, Temp: 98.7 (Oral), Pain: 8, O2 sat: 99 on (Room Air) - Physical Exam Constitutional: NAD, awake, alert and oriented HEENT: normocephalic and atraumatic, grossly normal vision, grossly normal hearing Neck: supple, FROM Chest: no lesions Heart: RRR, normal S1/S2, no murmurs/rubs/gallops, no edema Lungs: no respiratory distress, good air movement -Lungs: Coarse breath sounds in R lung > L lung, diffusely. Abdomen: soft, non-tender, bowel sounds present, no masses/distention Musculoskeletal: normal structure, normal tone, ROM grossly normal Neurological: no focal deficit Skin: no rash/lesions Psychiatric: normal mood and affect, good judgment and insight, intact recent and remote memory FMR H&P: Results - Labs Result Diagrams: 07/02/20 06:47 07/01/20 14:10 Lab results: WBC 7.9 thou/uL (4.8-10.8) 07/01/20 14:10 Hgb 10.5 g/dL (12.0-16.0) L 07/01/20 14:10 Hct 30.3 % (36.0-47.0) L 07/01/20 14:10 MCV 103.0 fL (78.0-98.0) H 07/01/20 14:10 Plt Count 242 thou/uL (130-400) 07/01/20 14:10 Neutrophils % 76.2 % (42.0-75.0) H 07/01/20 14:10 Sodium 137 mmol/L (136-145) 07/01/20 14:10 Potassium 4.1 mmol/L (3.5-5.1) 07/01/20 14:10 Chloride 107 mmol/L (98-107) 07/01/20 14:10 Carbon Dioxide 19 mmol/L (23-31) L 07/01/20 14:10 BUN 17 mg/dL (9.8-20.1) 07/01/20 14:10 Creatinine 0.92 mg/dL (0.6-1.1) 07/01/20 14:10 Glucose 98 mg/dL (83-110) 07/01/20 14:10 Lactic Acid 0.7 mmol/L (0.5-2.2) 07/01/20 14:10 Calcium 9.5 mg/dL (7.8-10.44) 07/01/20 14:10 Total Bilirubin 0.4 mg/dL (0.2-1.2) 07/01/20 14:10 AST 22 U/L (5-34) 07/01/20 14:10 ALT 40 U/L (8-55) 07/01/20 14:10 Alkaline Phosphatase 75 U/L (40-110) 07/01/20 14:10 Serum Total Protein 7.2 g/dL (5.8-8.1) 07/01/20 14:10 Albumin 3.5 g/dL (3.4-4.8) 07/01/20 14:10 Urine Ketones Negative mg/dL (Negative) 07/01/20 15:21 Urine Blood 1+ (Negative) A 07/01/20 15:21 Urine Nitrite 1+ (Negative) A 07/01/20 15:21 Ur Leukocyte Esterase 500 Leif/uL (Negative) A 07/01/20 15:21 Urine RBC 7-10 HPF (0-3) A 07/01/20 15: Urine WBC Greater than 50 HPF (0-3) A 07/01/20 15:21 Ur Squamous Epith Cells 0-3 HPF (0-3) 07/01/20 15:21 Urine Bacteria 3+ HPF (None Seen) A 07/01/20 15:21 - Radiology Interpretation CT scan - abdomen Status: report reviewed by me (Enlarging L adrenal and renal masses. Increasing L diverticular abscess in L adnexal region, next to the sigmoid colon) FMR H&P: A/P - Plan This is a 75F who presented from [facility] with LLQ pain, constipation, and nausea, found to have diverticulitis with an abscess. Diverticulitis with abscess - Was undergoing OP tx for this by Dr. Mendez. Initially dx 05/30 - CT abd/pelvis confirms enlarging diverticular mass - Dr. Mendez consulted from the ED. Appreciate recs - WBC, LA nml - Zosyn, zofran, morphine for pain * Consider Merrem to cover for ESBL - NPO pending eval by Dr. Mendez. LR at 150mL/h - BCx pending UTI - UA + for leuks, nitrites, bacteria, cells - Zosyn should cover. Consider Merrem, as above - UCx pending Stage IV lung cancer with mets - Undergoing immunotherapy - CT abd/pelvis shows enlarging L adrenal and renal masses - Lovenox for DVT ppx - Consider oncology consult COPD - Continue home meds - Monitor resp status - Baseline is RA Chronic conditions: Insomnia: Sinus tachycardia: Continue home meds. Monitor with vitals qshift HTN: Continue home meds. Monitor with vitals qshift HLD: Continue home meds GERD: Continue home meds Dispo: admit to medical. Continue pain control and Zosyn pending Dr. Mendez's recs. eLOS >48hrs. IVF: LR 150mL/h Diet: NPO pending Dr. Mendez evelías GI ppx: not indicated DVT ppx: Lovenox Code: DNAR PCP: Dr. Elena FMR H&P: Upper Level - Pertinent history Pt is a 75 yo F with pmh of lung cancer, HTN, HLD, Insomnia, COPD, and hx of tachycardia who presents for LLQ abdominal pain. The patient received her Keytruda treatment on Thursday of this week, after that she says she started developing the abdominal pain. She endorses nausea but no vomiting. She says the pain feels like an ache and does not radiate. It was a 10/ prior to receiving the fentanyl, but has since improved. She was seen by Dr. Mendez for this previous and found to not be a surgical candidate. She was treated with Augme ntin and Flagyl with her last bought of diverticulitis. ROS: + Cough, SOB, nausea, abdominal pain, constipation PE: Abdomen is soft with LLQ pain present on palpitation, bowel sounds are normal - Pertinent findings Pt is a 75 yo F with pmh of lung cancer, HTN, HLD, Insomnia, COPD, and hx of tachycardia who presents for LLQ abdominal pain. 1. Diverticulitis with Abscess CT: Enlarging L adrenal & renal mass, enlarging L diverticular abscess in L adnexal region adjacent to sigmoid -Pt was given Zosyn in ED, will continue at this time -Pt will be kept NPO -Will give LR @ 150 2. UTI 500 LE, 1+ Nitrite, > 50 WBC, 3+ Ifeanyi -Pt receiving Zosyn 3. HTN/Hx of Sinus Tach -Continue home medication of Verapmil 4. HLD -Continue home medication of Atorvastatin 5. COPD -Continue home medication of Symbicort, Montelukast, Albuterol, and Nicotine 6. Lung Cancer Pt takes Keytruda, received 06/29 -PET Scan scheduled 07/26 -MD aware -Consider Onc consult Diet: NPO DVT PPx: Lovenox GI PPx: Famotidine PCP: Dr. Elena Code Status: Full - Plan Date/Time: 07/01/20 0381 I, Ezra Lucia, have evaluated this patient and agree with findings/plan as ou tlined by international broadcast music librarian resident. Pertinent changes/additions are listed here. Addendum - Attending - Attending Attestation Date/Time: 07/01/20 7051 I personally evaluated the patient and discussed the management with resident team I agree with the History, Examination, Assessment and Plan documented above with any addition or exceptions noted below. 75 yo female with history of diverticulitis with abscess formation along with stage IV lung cancer admitted for enlarging abscess. Patient has been off antibx for 1 wk. Pain has worsened acutely. Last CT on 06/04/20. Done at . Not able to use to compare but patient and family report it was mildly larger than 2nd CT scan. Last blood work was reassuring. Today pain would not improve. Denies currently concerns with diarrhea. No fever, chills, body aches. Will admit. Surgery consulted. Ok to start Zosyn at this time. If not improving will switch to meropenum. Trend inflammatory sarmiento. Patient is immunosupressed. Unsure how this can be treated with medication only at this time. Patient had di fficulty tolerating PO antibx last time. No acute abdomen signs at this time. Steven
[2020-07-01] MEDS ORDERED: Ondansetron ODT 4 MG TAB PO PRN (17:06)
[2020-07-01] MEDS ORDERED: Acetaminophen 325 MG TAB PO PRN (17:18)
[2020-07-01] MEDS ORDERED: Morphine 2 MG/ML VIAL SLOW IVP PRN (17:21)
[2020-07-01] MEDS ORDERED: Piperacillin/Tazobactam 4.5 GM VIAL ONE (18:17)
[2020-07-01] MEDS: Morphine 4 MG/ML VIAL SLOW IVP PRN ×2 (19:24→23:43)
[2020-07-01] MEDS: Ondansetron PF 4 MG/2 ML Vial IVP PRN (21:23)
[2020-07-01] MEDS: Lactated Ringer's 1,000 ML IV SCH (21:23)
[2020-07-01] MEDS ORDERED: Lorazepam 0.5 MG TAB PO PRN (21:25)
[2020-07-01] MEDS ORDERED: Calcium Carbonate 500 MG ChewTAB PO PRN (21:27)
[2020-07-01] MEDS ORDERED: Ibuprofen 600 MG TAB PO PRN (21:38)
[2020-07-01] MEDS ORDERED: HYDROcodone/Acetaminophen 5/325 mg Tablet PO PRN (21:38)
--- NOTE | 2020-07-01 22:15 | PDOC.BPN ---
- Brief Progress Note Reassessed patient. She feels nauseous after going to restroom, nurse is getting medication for her. She reports abdominal pain continues to be persistent, unchanged in severity compared to admission. Morphine has helped control pain but wears off quickly. Restarted home medications. She has no new concerns otherwise. Added PO prn medications to help better control pain. Based on pain med requirements overnight, could start scheduled meds tomorrow. Awaiting gen surg consultation.
[2020-07-01] MEDS: Montelukast Sodium 10 mg Tablet PO SCH (23:46)
[2020-07-01] MEDS ORDERED: Piperacillin/Tazobactam 4.5 GM in Sodium Chloride 0.9% 100 ML IVPB SCH (23:59)
[2020-07-02] MEDS ORDERED: Piperacillin/Tazobactam 3.375 GM in Sodium Chloride 0.9% 100 ML IVPB SCH (00:15)
[2020-07-02 00:46] VITALS: BMI 20.1
[2020-07-02] MEDS: Famotidine 20 MG TAB PO SCH ×4 (02:16→20:12)
[2020-07-02] MEDS: Atorvastatin Calcium 40 MG TAB PO SCH ×2 (02:17→20:11)
[2020-07-02] MEDS: Morphine 4 MG/ML VIAL SLOW IVP PRN ×2 (03:30→07:20)
[2020-07-02] MEDS: Piperacillin/Tazobactam 3.375 GM in Sodium Chloride 0.9% 100 ML IVPB SCH ×4 (03:36→23:03)
[2020-07-02] MEDS: Lactated Ringer's 1,000 ML IV SCH ×5 (05:30→20:15)
[2020-07-02] MEDS: Nicotine 21 MG PATCH TD SCH ×3 (06:10→20:11)
--- NOTE | 2020-07-02 07:17 | PDOC.FM ---
- Subjective Subjective: Doing well this morning. Pain is better controlled by norco than morphine overnight - Objective MAR Reviewed: Yes Vital Signs & Weight: Vital Signs (12 hours) Temp Pulse Resp BP Pulse Ox 07/02/20 04:00 97.3 F L 69 16 116/73 98 07/02/20 00:00 97.8 F 78 16 112/68 98 07/01/20 20:00 98 Weight Weight 56.699 kg Result Diagrams: 07/02/20 06:47 07/02/20 06:47 Phys Exam - Physical Examination Constitutional: NAD HEENT: PERRLA, moist MMs Neck: no nodes, no JVD Respiratory: no wheezing, no rales, no rhonchi, clear to auscultation bilateral Cardiovascular: RRR, no significant murmur Gastrointestinal: soft, no distention, positive bowel sounds Minimally tender to palpation Musculoskeletal: no edema, pulses present Neurological: non-focal, normal sensation, moves all 4 limbs Psychiatric: normal affect, A&O x 3 Skin: no rash, normal turgor Dx/Plan (1) Metastatic lung cancer (metastasis from lung to other site) Code(s): C34.90 - MALIGNANT NEOPLASM OF UNSP PART OF UNSP BRONCHUS OR LUNG Status: Acute (2) Diverticulitis Code(s): K57.92 - DVTRCLI OF INTEST, PART UNSP, W/O PERF OR ABSCESS W/O BLEED Status: Acute (3) Colonic diverticular abscess Code(s): K57.20 - DVTRCLI OF LG INT W PERFORATION AND ABSCESS W/O BLEEDING Status: Acute (4) Hyperlipidemia Code(s): E78.5 - HYPERLIPIDEMIA, UNSPECIFIED Status: Chronic (5) Tobacco abuse Code(s): Z72.0 - TOBACCO USE Status: Chronic - Plan Plan: This is a 75F who presented from [facility] with LLQ pain, constipation, and nausea, found to have diverticulitis with an abscess. Diverticulitis with abscess - Was undergoing OP tx for this by Dr. Mendez. Initially dx 05/30 - CT abd/pelvis confirms enlarging diverticular mass - Dr. Mendez consulted from the ED. Appreciate recs - Zosyn, zofran, morphine for pain - NPO pending eval by Dr. Mendez. LR at 150mL/h - BCx pending UTI - UA + for leuks, nitrites, bacteria, cells - Zosyn should cover. - UCx pending Stage IV lung cancer with mets - Undergoing immunotherapy - CT abd/pelvis shows enlarging L adrenal and renal masses COPD - Continue home meds - Monitor resp status - On room air at baseline. Insomnia - Prn meds Sinus tachycardia - Continue home meds. Monitor with vitals qshift HTN - Continue home meds. Monitor with vitals qshift HLD - Continue home meds GERD - Continue home meds Dispo: admit to medical. Continue pain control and Zosyn pending Dr. Mendez's recs. eLOS >48hrs. IVF: LR 150mL/h Diet: NPO pending Dr. Mendez eval GI ppx: not indicated DVT ppx: Lovenox Code: DNAR PCP: Dr. Elena
[2020-07-02] MEDS: Ondansetron PF 4 MG/2 ML Vial IVP PRN ×2 (07:19→15:29)
[2020-07-02 07:28] LABS: Mean Corpuscular HGB CONC 33.5 g/dL (32.0-36.0); Mean Corpuscular Hemoglobin 34.4 pg (27.0-31.0); Mean Platelet Volume 5.9 fL (7.4-10.4); Platelet Count 218 thou/uL (130-400); RBC Distribution Width 14.2 % (11.5-14.5); Red Blood Cell (RBC) Count 2.62 mill/uL (4.20-5.40); White Blood Cell (WBC) Count 7.5 thou/uL (4.8-10.8)
[2020-07-02 07:40] LABS: Anion Gap 13 mmol/L (10-20); BUN (Urea Nitrogen) 16 mg/dL (9.8-20.1); Calc. Creatinine Clearance 45 mL/min (70-130); Calcium 9.3 mg/dL (7.8-10.44); Carbon Dioxide 21 mmol/L (23-31); Chloride 110 mmol/L (98-107); Glucose 78 mg/dL (83-110); Potassium 4.5 mmol/L (3.5-5.1); Sodium 139 mmol/L (136-145)
[2020-07-02] MEDS: Mometasone 200 MCG/Formoterol 5 MCG 120 PUFF INHALER INH SCH ×2 (08:03→19:20)
[2020-07-02] MEDS: Albuterol 200 PUFF (6.7GM INHALER) INH SCH ×2 (08:08→19:19)
[2020-07-02 08:55] LABS: MDiff Complete? YES
[2020-07-02 08:56] LABS: Band 16 % (5-11); Lymphocytes 10 % (21-51); Monocytes 8 % (0-10); Neutrophil 66 % (42-75); Platelet Morphology Comment Appears Adequate; Polychromasia SLIGHT = 2-3 cells (100X) (0-2/hpf)
[2020-07-02] MEDS: Saccharomyces boulardii 250 MG CAP PO SCH ×2 (08:56→20:11)
[2020-07-02] MEDS: Diphenoxylate HCl/Atropine Tablet PO SCH ×3 (08:58→20:09)
[2020-07-02] MEDS ORDERED: Enoxaparin Sodium 40 MG/0.4 ML SYRINGE SC SCH (09:00)
[2020-07-02] MEDS ORDERED: Senokot S 8.6-50 MG TAB PO SCH (10:30)
[2020-07-02] MEDS: Morphine 2 MG/ML VIAL SLOW IVP PRN ×3 (11:08→23:03)
[2020-07-02] MEDS: Promethazine 25 MG TAB PO PRN (11:12)
--- NOTE | 2020-07-02 12:46 | PRG ---
DATE OF SERVICE: 07/02/2020 SUBJECTIVE: Ms. Roy was readmitted with more severe left lower quadrant pain. CT scan shows enlarging sigmoid abscess. OBJECTIVE: VITAL SIGNS: She is afebrile, blood pressure is 123/71, temperature is afebrile, pulse 76. ABDOMEN: Her abdomen is soft, minimally tender in the left lower quadrant without guarding or rebound. LABORATORY DATA: White blood cell count is 7, hemoglobin is 9, and platelet count is 218. Creatinine 0.93. CT scan reviewed and discussed with Dr. Lanre Marin. CT scan is not amenable to percutaneous drainage. ASSESSMENT: Non-drainable recurrent chronic sigmoid abscess. PLAN: Laparoscopic sigmoid colectomy, colostomy on Thursday afternoon. We will allow diet today, prep her tomorrow for surgery on Thursday. Job ID: [id number]
[2020-07-02] MEDS: HYDROcodone/Acetaminophen 5/325 mg Tablet PO PRN (17:58)
[2020-07-02] MEDS: Montelukast Sodium 10 mg Tablet PO SCH (20:11)
[2020-07-02] MEDS: Melatonin 3 MG TAB PO SCH (20:11)
[2020-07-02] MEDS: Senokot S 8.6-50 MG TAB PO SCH (20:11)
[2020-07-02] MEDS ORDERED: Melatonin 3 MG TAB PO SCH (21:00)
[2020-07-03] MEDS: Morphine 2 MG/ML VIAL SLOW IVP PRN ×4 (02:54→18:34)
[2020-07-03] MEDS: Lactated Ringer's 1,000 ML IV SCH ×2 (02:55→16:17)
[2020-07-03] MEDS: HYDROcodone/Acetaminophen 5/325 mg Tablet PO PRN ×2 (05:15→21:03)
[2020-07-03] MEDS: Piperacillin/Tazobactam 3.375 GM in Sodium Chloride 0.9% 100 ML IVPB SCH ×3 (05:16→18:31)
--- NOTE | 2020-07-03 07:17 | PDOC.FM ---
- Subjective Subjective: Doing well this morning. Pain is better controlled with oral pain medications but she feels that it wears off before she is able to have another dose. She c/o nausea and is taking the zofran more often at home than she is scheduled here. - Objective MAR Reviewed: Yes Vital Signs & Weight: Vital Signs (12 hours) Temp Pulse Resp BP Pulse Ox 07/02/20 20:00 98.5 F 84 18 127/70 07/02/20 19:20 80 16 98 07/02/20 19:19 105 H 18 92 L Weight Weight 56.699 kg I&O: 07/02/20 07/03/20 07/04/20 06:59 06:59 06:59 Intake Total 3515 Balance 3515 Result Diagrams: 07/02/20 06:47 07/02/20 06:47 Phys Exam - Physical Examination Constitutional: NAD HEENT: PERRLA, moist MMs Neck: no nodes, no JVD, supple Respiratory: no wheezing, no rales, no rhonchi, clear to auscultation bilateral Cardiovascular: RRR, no significant murmur Gastrointestinal: soft, non-tender Musculoskeletal: no edema, pulses present Neurological: non-focal, normal sensation, moves all 4 limbs Psychiatric: normal affect, A&O x 3 Skin: no rash, normal turgor Dx/Plan (1) Metastatic lung cancer (metastasis from lung to other site) Code(s): C34.90 - MALIGNANT NEOPLASM OF UNSP PART OF UNSP BRONCHUS OR LUNG Status: Acute (2) Diverticulitis Code(s): K57.92 - DVTRCLI OF INTEST, PART UNSP, W/O PERF OR ABSCESS W/O BLEED Status: Acute (3) Colonic diverticular abscess Code(s): K57.20 - DVTRCLI OF LG INT W PERFORATION AND ABSCESS W/O BLEEDING Status: Acute (4) Hyperlipidemia Code(s): E78.5 - HYPERLIPIDEMIA, UNSPECIFIED Status: Chronic (5) Tobacco abuse Code(s): Z72.0 - TOBACCO USE Status: Chronic - Plan Plan: This is a 75F who presented from [facility] with LLQ pain, constipation, and nausea, found to have diverticulitis with an abscess. Diverticulitis with abscess - Was undergoing OP tx for this by Dr. Mendez. Initially dx 05/30 - CT abd/pelvis confirms enlarging diverticular abscess. Incidentally, the L adrenal mass and multiple renal masses have been shown to be increasing in size. - Dr. Mendez consulted from the ED. Appreciate recs - Zosyn, zofran, morphine for pain - Bowel prep today per surgery. - BCx pending UTI - UA + for leuks, nitrites, bacteria, cells - Zosyn should cover. - UCx pending Stage IV lung cancer with mets - Undergoing immunotherapy - CT abd/pelvis shows enlarging L adrenal and renal masses - Will consult palliative care for goals of care after surgery. COPD - Continue home meds - Monitor resp status - On room air at baseline. Insomnia - Prn meds Sinus tachycardia - Continue home meds. Monitor with vitals qshift HTN - Continue home meds. Monitor with vitals qshift HLD - Continue home meds GERD - Continue home meds Dispo: admit to medical. Continue pain control and Zosyn. Plan for surgery tomorrow morning. IVF: LR 150mL/h Diet: has diet, but will prep for surgery tomorrow. GI ppx: not indicated DVT ppx: Lovenox Code: DNAR PCP: Dr. Elena
[2020-07-03] MEDS: Albuterol 200 PUFF (6.7GM INHALER) INH SCH ×2 (07:29→18:21)
[2020-07-03] MEDS: Mometasone 200 MCG/Formoterol 5 MCG 120 PUFF INHALER INH SCH ×2 (07:44→18:20)
[2020-07-03] MEDS: Famotidine 20 MG TAB PO SCH ×2 (08:17→20:58)
[2020-07-03] MEDS: Senokot S 8.6-50 MG TAB PO SCH ×2 (08:17→21:17)
[2020-07-03] MEDS: Saccharomyces boulardii 250 MG CAP PO SCH ×2 (08:17→20:58)
[2020-07-03 09:53] LABS: SARS-CoV-2 PCR by NAA Not Detected (NotDetected)
[2020-07-03] MEDS ORDERED: GoLYTELY 4,000 ml Bottle PO SCH (11:45)
[2020-07-03] MEDS: Ondansetron ODT 4 MG TAB PO PRN ×3 (11:51→21:04)
--- NOTE | 2020-07-03 11:54 | PRG ---
DATE OF SERVICE: 07/03/2020 SUBJECTIVE: Ms. Roy has no complaints today. OBJECTIVE: VITAL SIGNS: She is afebrile. Her vital signs are stable. ABDOMEN: Abdominal exam is unchanged. ASSESSMENT: Diverticular abscess, not drainable by percutaneous . PLAN: Sigmoid colectomy with colostomy tomorrow. Risks, benefits, and alternatives discussed. She gives consent. We will do a colon prep this afternoon. Job ID: [id number]
[2020-07-03] MEDS: Melatonin 3 MG TAB PO SCH (20:58)
[2020-07-03] MEDS: Atorvastatin Calcium 40 MG TAB PO SCH (20:58)
[2020-07-03] MEDS: Montelukast Sodium 10 mg Tablet PO SCH (20:58)
[2020-07-03] MEDS: Nicotine 21 MG PATCH TD SCH (20:59)
[2020-07-04] MEDS: Piperacillin/Tazobactam 3.375 GM in Sodium Chloride 0.9% 100 ML IVPB SCH ×5 (00:50→23:55)
[2020-07-04] MEDS: Lactated Ringer's 1,000 ML IV SCH ×3 (00:50→15:28)
[2020-07-04] MEDS: Promethazine 25 MG TAB PO PRN (00:56)
[2020-07-04] MEDS: Albuterol 200 PUFF (6.7GM INHALER) INH SCH ×2 (07:18→18:37)
[2020-07-04] MEDS: Mometasone 200 MCG/Formoterol 5 MCG 120 PUFF INHALER INH SCH ×2 (07:21→18:37)
--- NOTE | 2020-07-04 08:14 | PDOC.FM ---
- Subjective Subjective: Pt is doing well this morning. She did not completely finish the golytley. She is having BM still. She is scheduled for surgery at 1330. - Objective MAR Reviewed: Yes Vital Signs & Weight: Vital Signs (12 hours) Temp Pulse Resp BP Pulse Ox 07/04/20 07:24 98.8 F 79 20 109/67 98 07/04/20 07:18 98 18 79 L Weight Weight 56.699 kg I&O: 07/03/20 07/04/20 07/05/20 06:59 06:59 06:59 Intake Total 3515 2100 Balance 3515 2100 Result Diagrams: 07/02/20 06:47 07/02/20 06:47 Phys Exam - Physical Examination Constitutional: NAD HEENT: moist MMs eyes anicteric Neck: supple Respiratory: clear to auscultation bilateral Cardiovascular: RRR, no significant murmur Gastrointestinal: soft, positive bowel sounds tender to palpitation in bilateral lower qudrants Musculoskeletal: no edema, pulses present Neurological: moves all 4 limbs Psychiatric: normal affect Skin: no rash, normal turgor Dx/Plan (1) UTI (urinary tract infection) Status: Acute (2) Diverticulitis Code(s): K57.92 - DVTRCLI OF INTEST, PART UNSP, W/O PERF OR ABSCESS W/O BLEED Status: Acute (3) Metastatic lung cancer (metastasis from lung to other site) Code(s): C34.90 - MALIGNANT NEOPLASM OF UNSP PART OF UNSP BRONCHUS OR LUNG Status: Acute (4) Colonic diverticular abscess Code(s): K57.20 - DVTRCLI OF LG INT W PERFORATION AND ABSCESS W/O BLEEDING Status: Acute (5) Hyperlipidemia Code(s): E78.5 - HYPERLIPIDEMIA, UNSPECIFIED Status: Chronic (6) COPD (chronic obstructive pulmonary disease) Status: Acute (7) Insomnia Code(s): G47.00 - INSOMNIA, UNSPECIFIED Status: Acute (8) HTN (hypertension) Code(s): I10 - ESSENTIAL (PRIMARY) HYPERTENSION Status: Acute (9) GERD (gastroesophageal reflux disease) Code(s): K21.9 - GASTRO-ESOPHAGEAL REFLUX DISEASE WITHOUT ESOPHAGITIS Status: Acute - Plan Plan: This is a 75F who presented from [facility] with LLQ pain, constipation, and nausea, found to have diverticulitis with an abscess. 1. Diverticulitis with abscess - Was undergoing OP tx for this by Dr. Mendez. Initially dx 05/30 - CT abd/pelvis confirms enlarging diverticular abscess. Incidentally, the L adrenal mass and multiple renal masses have been shown to be increasing in size. - Dr. Mendez consulted from the ED. Appreciate recs - Zosyn, zofran, morphine for pain - Bowel prep yesterday, she only did 2L - BCx: 2. UTI - UA + for leuks, nitrites, bacteria, cells. - Zosyn started (07/02). Will consider transitioning to something else pending General Surgery recs. - UCx: Enterobacter, resistant to Cefoxitin and Macrobid 3. Stage IV lung cancer with mets - Undergoing immunotherapy - CT abd/pelvis shows enlarging L adrenal and renal masses - Will consult palliative care for goals of care after surgery. 4. COPD - Continue home meds - Monitor resp status - On room air at baseline. 5. Insomnia - Prn meds 6. Sinus tachycardia - Continue home meds. Monitor with vitals qshift 7. HTN - Continue home meds. Monitor with vitals qshift 8. HLD - Continue home meds 9. GERD - Continue home meds IVF: LR 150mL/h Diet: NPO GI ppx: not indicated DVT ppx: Lovenox Code: DNAR PCP: Dr. Elena Dispo: Med inpt, LOS > 48H. Pt is having surgery today. Will get surgery recs. Currently on Zosyn. Will consider changing tomorrow vs keeping on.
[2020-07-04] MEDS: Saccharomyces boulardii 250 MG CAP PO SCH (09:17)
[2020-07-04] MEDS: Senokot S 8.6-50 MG TAB PO SCH (09:17)
[2020-07-04] MEDS: Famotidine 20 MG TAB PO SCH (09:17)
[2020-07-04] MEDS ORDERED: Ondansetron PF 4 MG/2 ML Vial ONE ×2 (09:19→12:25)
[2020-07-04] MEDS ORDERED: Succinylcholine 200 MG/10 ml SYRINGE FS ONE (09:19)
[2020-07-04] MEDS ORDERED: PROPOFOL 200 MG/20 ML VIAL ONE (09:19)
[2020-07-04] MEDS ORDERED: Glycopyrrolate 0.2 MG/ML 5 ML SYRINGE ONE (09:19)
[2020-07-04] MEDS ORDERED: ePHEDrine 50 MG/ML VIAL ONE (09:19)
[2020-07-04] MEDS ORDERED: Rocuronium Bromide 10 MG/ML (10ML VIAL) ONE (09:19)
[2020-07-04] MEDS ORDERED: PHENYLEPHRINE-NS 100 MCG/ML 10 ML SYRINGE ONE (09:19)
[2020-07-04] MEDS ORDERED: Bupivacaine HCl 0.5%/Epinephrine 1:200,000/PF 30 ml Vial ONE (09:19)
[2020-07-04] MEDS ORDERED: Lidocaine 1% PF 5 ML VIAL ONE (09:19)
[2020-07-04] MEDS ORDERED: XYLOCAINE 2%-EPI 1:100,000 20 ML VIAL ONE (10:03)
[2020-07-04] MEDS ORDERED: Bupivacaine 0.25% HCL 30 ML VIAL ONE (10:03)
[2020-07-04] MEDS ORDERED: Sodium Chloride 0.9% 100 ML ONE (12:21)
[2020-07-04] MEDS ORDERED: Fentanyl 100 MCG/2 ML VIAL ONE ×4 (12:21→15:54)
[2020-07-04] MEDS ORDERED: Piperacillin/Tazobactam 3.375 GM VIAL ONE (12:21)
[2020-07-04] MEDS ORDERED: Lidocaine 1% (PF) 30 ML VIAL ONE (12:21)
[2020-07-04] MEDS ORDERED: HYDROmorphone 0.5 MG/0.5 ML SYRINGE ONE (12:35)
[2020-07-04] MEDS ORDERED: Morphine 2 MG/ML VIAL ONE (15:19)
--- NOTE | 2020-07-04 15:29 | PDOC.GSPN ---
Surgery Progress Note: Obj - Vital signs Vital signs: Vital Signs - Most Recent Temp Pulse Resp BP Pulse Ox 98.8 F 79 20 109/67 98 07/04/20 07:24 07/04/20 07:24 07/04/20 07:24 07/04/20 07:24 07/04/20 08:00 Surgery Progress Note: Results - Labs Result Diagrams: 07/02/20 06:47 07/02/20 06:47 - Radiology Interpretation CT scan - abdomen Status: report reviewed by me (Enlarging L adrenal and renal masses. Increasing L diverticular abscess in L adnexal region, next to the sigmoid colon) Surgery Progress Note: A/P - Problem (1) Colonic diverticular abscess Current Visit: No Code(s): K57.20 - DVTRCLI OF LG INT W PERFORATION AND ABSCESS W/O BLEEDING Status: Acute
[2020-07-04] MEDS ORDERED: Ondansetron PF 4 MG/2 ML Vial IVP PRN (15:56)
[2020-07-04] MEDS ORDERED: hydrALAZINE 20 MG/ML VIAL SLOW IVP PRN (15:56)
[2020-07-04] MEDS ORDERED: Promethazine HCl 25 MG/ML VIAL IM PRN (15:56)
[2020-07-04] MEDS ORDERED: Ondansetron HCl/PF 4 MG/2 ML Vial IVP PRN (16:01)
[2020-07-04] MEDS ORDERED: diphenhydrAMINE 25 MG CAP PO PRN (16:01)
[2020-07-04] MEDS ORDERED: diphenhydrAMINE 50 MG/ML VIAL IM PRN (16:01)
[2020-07-04] MEDS ORDERED: Naloxone HCl 0.4 mg/ml Vial IV PRN (16:01)
[2020-07-04] MEDS ORDERED: diphenhydrAMINE 50 MG/ML VIAL IVP PRN (16:01)
[2020-07-04] MEDS ORDERED: Morphine Sulfate 2 MG/ML SYRINGE SLOW IVP PRN (16:01)
[2020-07-04] MEDS ORDERED: fentaNYL Citrate/PF 2,000 MCG in Sodium Chloride 0.9% 60 ML IV PRN (16:01)
[2020-07-04] MEDS ORDERED: Communication Order-Pharmacy FS SCH (16:15)
[2020-07-04] MEDS: D5 1/2 NS w/20 mEq KCL 1,000 ML IV SCH (18:38)
[2020-07-04] MEDS: Ondansetron PF 4 MG/2 ML Vial IVP PRN (19:16)
--- NOTE | 2020-07-04 19:28 | OP ---
DATE OF PROCEDURE: 07/04/2020 PREOPERATIVE DIAGNOSIS: Sigmoid diverticulitis with abscess. POSTOPERATIVE DIAGNOSIS: Sigmoid diverticulitis with abscess. PROCEDURE PERFORMED: Sigmoid colectomy with colostomy. ANESTHESIA: General. ESTIMATED BLOOD LOSS: 100 mL. COMPLICATIONS: None. FINDINGS: Sigmoid diverticulitis with localized rupture and abscess. DESCRIPTION OF PROCEDURE: The patient was taken to the operating room and laid supine on the operating room table. After general anesthetic was obtained, a Correa was placed. The abdomen was prepped and draped in a sterile fashion. Left subcostal 5-mm Optiview trocar placed in usual fashion. High-flow pneumoperitoneum was obtained. Laparoscopic ports were placed in the right lower quadrant, suprapubic. The patient had significant locally inflammatory disease to the sigmoid colon. It was stuck to the pelvic sidewall, stuck to the back of the uterus. Decision was made to open. Midline incision was made and Bookwalter retractor was placed. Left colon was mobilized along the white line of Toldt. The left ureter was found and excluded from the dissection. The sigmoid colon was bluntly dissected away from the pelvic sidewall. In doing this, the abscess cavity was entered. A LISA 75 stapler was fired across the low sigmoid colon past the area of inflammation. A reload was fired across the colon above the area of inflammation. The resultant mesentery was taken using Barbie clamp and silk ties. Again, no damage to the ureter during the dissection. The colon was not able to be brought up to the posterior abdominal wall without tension, so a splenic flexure mobilization was performed in usual fashion. Ellipse of skin taken out in the left abdomen. A 19 round drain brought out through a right lower quadrant incision, sewn in place using silk. The pelvis was irrigated using sterile solution. A cruciate incision was made in the fascia. The proximal colon was brought up to a colostomy. Midline fascia was closed using PDS. Subcutaneous tissues were irrigated using pulse evacuator. The incision was closed using 3-0 Vicryl, 4-0 Monocryl, and Dermabond. The colostomy was matured in the usual fashion using 3-0 Vicryl. A colostomy device was placed. The patient was en route to Recovery in stable condition. All instrument counts, needle counts, and lap counts were correct. Job ID: [id number]
[2020-07-04] MEDS: Montelukast Sodium 10 mg Tablet PO SCH (20:18)
[2020-07-05] MEDS: Ondansetron PF 4 MG/2 ML Vial IVP PRN ×4 (00:22→20:26)
[2020-07-05] MEDS: D5 1/2 NS w/20 mEq KCL 1,000 ML IV SCH ×2 (05:23→21:56)
[2020-07-05] MEDS: Promethazine HCl 25 MG/ML VIAL IM PRN ×2 (05:23→21:54)
[2020-07-05] MEDS: Piperacillin/Tazobactam 3.375 GM in Sodium Chloride 0.9% 100 ML IVPB SCH ×3 (05:23→18:18)
[2020-07-05 06:20] LABS: #Lymphocytes 0.5 thou/uL (1.20-3.40); #Monocytes 0.5 thou/uL (0.11-0.59); #Neutrophils 7.3 thou/uL (1.40-6.50); %Monocytes 5.8 % (0.0-10.0); %Neutrophils 88.2 % (42.0-75.0); Hemoglobin 6.9 g/dL (12.0-16.0); Mean Corpuscular HGB CONC 32.9 g/dL (32.0-36.0); Mean Corpuscular Hemoglobin 34.1 pg (27.0-31.0); Mean Platelet Volume 6.1 fL (7.4-10.4); Platelet Count 208 thou/uL (130-400); RBC Distribution Width 14.1 % (11.5-14.5); Red Blood Cell (RBC) Count 2.01 mill/uL (4.20-5.40); White Blood Cell (WBC) Count 8.3 thou/uL (4.8-10.8)
[2020-07-05 06:51] LABS: ALT (SGPT) 14 U/L (8-55); AST (SGOT) 11 U/L (5-34); Albumin 2.5 g/dL (3.4-4.8); Alkaline Phosphatase 59 U/L (40-110); Anion Gap 16 mmol/L (10-20); BUN (Urea Nitrogen) 10 mg/dL (9.8-20.1); Bilirubin, Total 0.3 mg/dL (0.2-1.2); Calc. Creatinine Clearance 53 mL/min (70-130); Calcium 8.1 mg/dL (7.8-10.44); Carbon Dioxide 17 mmol/L (23-31); Chloride 109 mmol/L (98-107); Globulin 2.8 g/dL (2.4-3.5); Glucose 165 mg/dL (83-110); Potassium 4.2 mmol/L (3.5-5.1); Protein, Total 5.3 g/dL (5.8-8.1); Sodium 138 mmol/L (136-145)
--- NOTE | 2020-07-05 07:06 | PDOC.GSPN ---
Surgery Progress Note: Subj - Subjective Patient reports: tolerating liquids well, nausea, still having pain Narrative: Mrs. Roy's pain pump is too difficult for her to press due to lack of muscle strength. Her daughter stayed with her overnight and pressed the button for her. They expressed that Mrs. Roy has not been able to manage her pain to their satisfaction because of her inability to self-administer. Mrs. Roy has experienced nausea that is controlled on zofran and phenergan. She has had belching but no vomiting. Mrs. Roy is tolerating water sips and ice chips. Her urine output is appropriate (on IV fluids). A blood transfusion is currently being considered for Mrs. Roy due to hematology results. Her daughter inquired about an abdominal binder to provide support to her incision site. Surgery Progress Note: Obj - Vital signs Vital signs: Vital Signs - Most Recent Temp Pulse Resp BP Pulse Ox 98.6 F 83 16 105/62 97 07/05/20 03:04 07/05/20 03:04 07/05/20 03:04 07/05/20 03:04 07/05/20 03:04 - Physical Exam General: no distress, moderate pain Cardiovascular: regular rate and rhythm Respiratory: clear to auscultation Abdomen: soft, appropriately tender Wound: healing well Surgery Progress Note: Results - Labs Result Diagrams: 07/05/20 05:59 07/05/20 05:59 Lab results: Laboratory Results - last 12 hr 07/05/20 07/05/20 05:59 05:59 WBC 8.3 RBC 2.01 L Hgb 6.9 L Hct 20.8 L MCV 104.0 H MCH 34.1 H MCHC 32.9 RDW 14.1 Plt Count 208 MPV 6.1 L Neutrophils % 88.2 H Lymphocytes % 6.0 L Monocytes % 5.8 Eosinophils % 0.0 Basophils % 0.0 Neutrophils # 7.3 H Lymphocytes # 0.5 L Monocytes # 0.5 Eosinophils # 0.0 Basophils # 0.0 Sodium 138 Potassium 4.2 Chloride 109 H Carbon Dioxide 17 L Anion Gap 16 BUN 10 Creatinine 0.79 Estimated GFR (MDRD) 71 Glucose 165 H Calcium 8.1 Total Bilirubin 0.3 AST 11 ALT 14 Alkaline Phosphatase 59 Serum Total Protein 5.3 L Albumin 2.5 L Globulin 2.8 Albumin/Globulin Ratio 0.9 L - Radiology Interpretation CT scan - abdomen Status: report reviewed by me (Enlarging L adrenal and renal masses. Increasing L diverticular abscess in L adnexal region, next to the sigmoid colon) Surgery Progress Note: A/P - Problem (1) Diverticulitis Current Visit: Yes Code(s): K57.92 - DVTRCLI OF INTEST, PART UNSP, W/O PERF OR ABSCESS W/O BLEED Status: Acute - Plan Plan: POD 1 -clears -transfuse 1 unit PRBC's -DC FUNERAL SERVICE APPRENTICE tomorrow if jud clears
[2020-07-05] MEDS: Albuterol 200 PUFF (6.7GM INHALER) INH SCH ×3 (07:22→21:32)
[2020-07-05] MEDS: Mometasone 200 MCG/Formoterol 5 MCG 120 PUFF INHALER INH SCH ×2 (07:24→21:32)
--- NOTE | 2020-07-05 07:41 | PDOC.FM ---
- Subjective Subjective: This morning her pain is not well controlled and she is having persistent nausea. - Objective MAR Reviewed: Yes Vital Signs & Weight: Vital Signs (12 hours) Temp Pulse Resp BP Pulse Ox 07/05/20 03:04 98.6 F 83 16 105/62 97 07/04/20 23:47 98 F 87 18 108/66 97 Weight Weight 56.699 kg I&O: 07/04/20 07/05/20 07/06/20 06:59 06:59 06:59 Intake Total 3309 Output Total 475 Balance 2834 Result Diagrams: 07/05/20 05:59 07/05/20 05:59 Phys Exam - Physical Examination Constitutional: NAD HEENT: PERRLA, sclera anicteric Neck: no nodes, supple Coarse breath sounds bilaterally. Uncleared secretions audible. Cardiovascular: RRR, no significant murmur Gastrointestinal: soft, no distention, positive bowel sounds Incision clean dry and intact Ostomy output is good Musculoskeletal: no edema, pulses present Neurological: non-focal, moves all 4 limbs Psychiatric: normal affect, A&O x 3 Skin: no rash, normal turgor Dx/Plan (1) Metastatic lung cancer (metastasis from lung to other site) Code(s): C34.90 - MALIGNANT NEOPLASM OF UNSP PART OF UNSP BRONCHUS OR LUNG Status: Acute (2) Diverticulitis Code(s): K57.92 - DVTRCLI OF INTEST, PART UNSP, W/O PERF OR ABSCESS W/O BLEED Status: Acute (3) Colonic diverticular abscess Code(s): K57.20 - DVTRCLI OF LG INT W PERFORATION AND ABSCESS W/O BLEEDING Status: Acute (4) Hyperlipidemia Code(s): E78.5 - HYPERLIPIDEMIA, UNSPECIFIED Status: Chronic (5) Tobacco abuse Code(s): Z72.0 - TOBACCO USE Status: Chronic - Plan Plan: This is a 75F who presented from [facility] with LLQ pain, constipation, and nausea, found to have diverticulitis with an abscess. Diverticulitis with abscess, s/p sigmoidectomy w/ colostomy POD #1 - Dr. Mendez, surgeon, consulted. Procedure 07/04/20. - Zosyn, zofran, morphine for pain - INDUSTRIAL ENGINEERING MANAGER pump in place. - Will discuss discontinuing antibiotics. UTI, treated. - Zosyn should cover. - UCx - Enterococcus Stage IV lung cancer with mets - Undergoing immunotherapy - CT abd/pelvis shows enlarging L adrenal and renal masses - Will consult palliative care for goals of care after surgery. COPD - Continue home meds - Monitor resp status - On room air at baseline. Insomnia - Prn meds Sinus tachycardia - Continue home meds. HTN - Continue home meds. HLD - Continue home meds GERD - Continue home meds Dispo: Admitted to med/surg. Stable. IVF: SL Diet: Advance as tolerated. GI ppx: not indicated DVT ppx: Lovenox Code: DNAR PCP: Dr. Elena
[2020-07-05] MEDS ORDERED: Famotidine 20 MG TAB PO SCH (09:00)
[2020-07-05] MEDS: Enoxaparin Sodium 40 MG/0.4 ML SYRINGE SC SCH (09:41)
[2020-07-05] MEDS ORDERED: Morphine 2 MG/ML VIAL SLOW IVP SCH (12:15)
[2020-07-05] MEDS: Famotidine/PF 20 mg/2ml Vial SLOW IVP SCH (12:21)
[2020-07-05] MEDS: Mag-Al 1200 mg/1200 mg/30 ML UDCUP PO PRN (18:20)
[2020-07-05] MEDS: Montelukast Sodium 10 mg Tablet PO SCH (20:26)
[2020-07-06] MEDS: Scopolamine 1.5 mg/72 hour Patch TD SCH (00:58)
[2020-07-06] MEDS: D5 1/2 NS w/20 mEq KCL 1,000 ML IV SCH (04:31)
[2020-07-06] MEDS: Piperacillin/Tazobactam 3.375 GM in Sodium Chloride 0.9% 100 ML IVPB SCH ×2 (05:30)
[2020-07-06 05:42] LABS: #Monocytes 0.7 thou/uL (0.11-0.59); #Neutrophils 6.1 thou/uL (1.40-6.50); %Basophils 0.1 % (0.0-1.0); %Eosinophils 0.2 % (0.0-10.0); %Lymphocytes 12.8 % (21.0-51.0); %Monocytes 8.3 % (0.0-10.0); %Neutrophils 78.5 % (42.0-75.0); Hemoglobin 7.3 g/dL (12.0-16.0); Mean Corpuscular HGB CONC 32.4 g/dL (32.0-36.0); Mean Corpuscular Hemoglobin 32.9 pg (27.0-31.0); Mean Platelet Volume 5.7 fL (7.4-10.4); Platelet Count 190 thou/uL (130-400); RBC Distribution Width 14.5 % (11.5-14.5); Red Blood Cell (RBC) Count 2.23 mill/uL (4.20-5.40); White Blood Cell (WBC) Count 7.8 thou/uL (4.8-10.8)
[2020-07-06 06:41] LABS: Anion Gap 13 mmol/L (10-20); BUN (Urea Nitrogen) 11 mg/dL (9.8-20.1); Calc. Creatinine Clearance 53 mL/min (70-130); Calcium 8.2 mg/dL (7.8-10.44); Carbon Dioxide 21 mmol/L (23-31); Chloride 108 mmol/L (98-107); Glucose 133 mg/dL (83-110); Sodium 138 mmol/L (136-145)
--- NOTE | 2020-07-06 07:01 | PDOC.GSPN ---
Surgery Progress Note: Subj - Subjective Patient reports: still having pain Narrative: Mrs. Roy is post-op day 2 from sigmoid colectomy. She is with her two daughters who are helping to manage her care. She continues to have trouble finding the NEONATAL SOCIAL WORKER button to press which is making it difficult to manage her pain. Her daughter helps her find the button. She has developed significant wheezing since yesterday. The wheezing is audible without auscultation. She has received a scopolamine patch and breathing treatments, both of which have helped but the wheezing is still appreciable. She has also started to gag sporadically but it is not causing too much distress. Her daughter continues to feed her water and she tolerated broth yesterday. Her nausea is mild with her control regimen. She reported that her transfusion yesterday helped her to feel better. Surgery Progress Note: Obj - Vital signs Vital signs: Vital Signs - Most Recent Temp Pulse Resp BP Pulse Ox 97.7 F 95 18 129/76 96 07/06/20 04:40 07/06/20 04:40 07/06/20 04:40 07/06/20 04:40 07/06/20 04:40 - Physical Exam General: no distress, moderate pain ENT: decreased hearing (Patient reports feeling like her ears are clogged) Respiratory: coarse breath sounds (Significant breath sounds audible from a distance), wheezing (Significant wheezing audible from a distance) Abdomen: nondistended, appropriately tender Wound: healing well, drainage (Drain is functioning properly), ostomy/colostomy (Bag is filling appropriately without leaks) Surgery Progress Note: Results - Labs Result Diagrams: 07/06/20 05:20 07/06/20 05:20 Lab results: Laboratory Results - last 12 hr 07/06/20 07/06/20 05:20 05:20 WBC 7.8 RBC 2.23 L Hgb 7.3 L Hct 22.6 L MCV 102.0 H MCH 32.9 H MCHC 32.4 RDW 14.5 Plt Count 190 MPV 5.7 L Neutrophils % 78.5 H Lymphocytes % 12.8 L Monocytes % 8.3 Eosinophils % 0.2 Basophils % 0.1 Neutrophils # 6.1 Lymphocytes # 1.0 L Monocytes # 0.7 H Eosinophils # 0.0 Basophils # 0.0 Sodium 138 Potassium 4.0 Chloride 108 H Carbon Dioxide 21 L Anion Gap 13 BUN 11 Creatinine 0.79 Estimated GFR (MDRD) 71 Glucose 133 H Calcium 8.2 - Radiology Interpretation CT scan - abdomen Status: report reviewed by me (Enlarging L adrenal and renal masses. Increasing L diverticular abscess in L adnexal region, next to the sigmoid colon) Surgery Progress Note: A/P - Problem (1) Colonic diverticular abscess Current Visit: Yes Code(s): K57.20 - DVTRCLI OF LG INT W PERFORATION AND ABSCESS W/O BLEEDING Status: Acute Assessment and Plan: Continue clear fluids NEONATAL SOCIAL WORKER for pain Scopalamine and breathing tx for wheezing Addendum - Physician - Physician Attestation Date/Time: 07/06/20 1216 I personally performed or re-performed the physical examination and medical decision making. I have verified all student documentation or findings, including history, physical exam and/or medical decision making. Coarse breath sounds, sound overloaded No nausea Advance to fulls Lasix 20 mg IV
--- NOTE | 2020-07-06 07:04 | PDOC.FM ---
- Subjective Subjective: Very sedated this morning. Unable to open eyes to converse, however, she was engaged in the entire conversation. No events overnight. Pain is moderately controlled. - Objective MAR Reviewed: Yes Vital Signs & Weight: Vital Signs (12 hours) Temp Pulse Resp BP Pulse Ox 07/06/20 04:40 97.7 F 95 18 129/76 96 07/06/20 00:17 16 07/05/20 23:51 97.8 F 82 16 104/65 94 L 07/05/20 20:20 95 07/05/20 20:16 97.8 F 86 18 102/65 95 Weight Weight 56.699 kg I&O: 07/05/20 07/06/20 07/07/20 06:59 06:59 06:59 Intake Total 3309 3022 Output Total 475 1105 Balance 2834 1917 Result Diagrams: 07/06/20 05:20 07/06/20 05:20 Phys Exam - Physical Examination Constitutional: NAD Sedated HEENT: PERRLA, moist MMs Neck: no nodes, supple Secretions audible in the upper airways. Cardiovascular: RRR, no significant murmur Gastrointestinal: soft, non-tender Midline incision clean, dry and intact. Ostomy output appropriate. Musculoskeletal: no edema, pulses present Neurological: non-focal, normal sensation, moves all 4 limbs Psychiatric: normal affect, A&O x 3 Skin: no rash, normal turgor Dx/Plan (1) Metastatic lung cancer (metastasis from lung to other site) Code(s): C34.90 - MALIGNANT NEOPLASM OF UNSP PART OF UNSP BRONCHUS OR LUNG Status: Acute (2) Diverticulitis Code(s): K57.92 - DVTRCLI OF INTEST, PART UNSP, W/O PERF OR ABSCESS W/O BLEED Status: Acute (3) Colonic diverticular abscess Code(s): K57.20 - DVTRCLI OF LG INT W PERFORATION AND ABSCESS W/O BLEEDING Status: Acute (4) Hyperlipidemia Code(s): E78.5 - HYPERLIPIDEMIA, UNSPECIFIED Status: Chronic (5) Tobacco abuse Code(s): Z72.0 - TOBACCO USE Status: Chronic - Plan Plan: This is a 75F who presented from [facility] with LLQ pain, constipation, and nausea, found to have diverticulitis with an abscess. Diverticulitis with abscess, s/p sigmoidectomy w/ colostomy POD #2 - Dr. Mendez, surgeon, consulted. Procedure 07/04/20. - SALES MANAGER [place] pump in place for pain. - Zofran and Phenergan for nausea. - Zosyn 07/01 - 07/05. Discontinued. UTI, treated. Stage IV lung cancer with mets - Undergoing immunotherapy - CT abd/pelvis shows enlarging L adrenal and renal masses - Will consult palliative care for goals of care after surgery. COPD - Continue home meds - Monitor resp status - On room air at baseline. Insomnia - Prn meds Sinus tachycardia - Continue home meds. HTN - Continue home meds. HLD - Continue home meds GERD - Continue home meds Dispo: Admitted to med/surg. Stable. IVF: SL Diet: Advance as tolerated. GI ppx: not indicated DVT ppx: Lovenox Code: DNAR PCP: Dr. Elena
[2020-07-06] MEDS: Mometasone 200 MCG/Formoterol 5 MCG 120 PUFF INHALER INH SCH ×2 (07:52→18:42)
[2020-07-06] MEDS ORDERED: guaiFENesin 200 MG TAB PO PRN (08:17)
[2020-07-06] MEDS: Enoxaparin Sodium 40 MG/0.4 ML SYRINGE SC SCH (09:27)
[2020-07-06] MEDS ORDERED: D5 1/2 NS w/20 mEq KCL 1,000 ML IV SCH (10:51)
[2020-07-06] MEDS ORDERED: Furosemide 20 MG/2 ML VIAL SLOW IVP SCH ×2 (11:30)
[2020-07-06] MEDS: Famotidine/PF 20 mg/2ml Vial SLOW IVP SCH (11:40)
[2020-07-06] MEDS: Acetaminophen 325 MG TAB PO PRN (14:08)
[2020-07-06] MEDS: Fentanyl 100 MCG/2 ML VIAL SLOW IVP PRN ×2 (17:23→19:26)
[2020-07-06] MEDS: Albuterol 200 PUFF (6.7GM INHALER) INH SCH (18:41)
[2020-07-06] MEDS: Montelukast Sodium 10 mg Tablet PO SCH (20:55)
[2020-07-06] MEDS: Ondansetron PF 4 MG/2 ML Vial IVP PRN (20:55)
[2020-07-06] MEDS: Mag-Al 1200 mg/1200 mg/30 ML UDCUP PO PRN (21:23)
[2020-07-06] MEDS: Lorazepam 1 MG TAB PO PRN (21:28)
[2020-07-07] MEDS: Fentanyl 100 MCG/2 ML VIAL SLOW IVP PRN ×4 (01:19→07:28)
--- NOTE | 2020-07-07 05:46 | PDOC.FM ---
- Subjective Subjective: CUSHION GUM APPLICATOR was discontinued yesterday and she was placed on IV fentanyl q2hr. She has required the medication every 2 hours with little relief. She reports that her pain is an 8/10 this morning. She is still have secretions, but daughter reports that they have improved. Her daughter also reports anxiety and confusion last night. - Objective MAR Reviewed: Yes Vital Signs & Weight: Vital Signs (12 hours) Temp Pulse Resp BP Pulse Ox 07/07/20 03:19 98.8 F 86 16 138/77 94 L 07/06/20 19:42 98.4 F 89 20 115/72 96 07/06/20 18:42 88 18 94 L Weight Weight 56.699 kg I&O: 07/05/20 07/06/20 07/07/20 06:59 06:59 06:59 Intake Total 3309 3022 150 Output Total 475 1105 3520 Balance 2834 9118 -9650 Result Diagrams: 07/07/20 06:03 07/07/20 06:03 Phys Exam - Physical Examination Constitutional: NAD HEENT: moist MMs Neck: supple, full ROM upper airway secretions heard Cardiovascular: RRR, no significant murmur Gastrointestinal: soft, positive bowel sounds incision dry clean and intact, ostomy output appropriate Musculoskeletal: no edema Neurological: non-focal, normal sensation Psychiatric: normal affect Skin: no rash, normal turgor Dx/Plan - Plan Plan: Diverticulitis with abscess, s/p sigmoidectomy w/ colostomy POD #2 - Dr. Mendez, surgeon, consulted. Procedure 07/04/20. - CUSHION GUM APPLICATOR pump DC'd on 07/06 > IV Fentanyl > [place] 10 scheduled q4hr with morphine q4 for breakthrough pain - Zofran and Phenergan for nausea. - Zosyn 07/01 - 07/05. Discontinued. UTI, treated. Stage IV lung cancer with mets - Undergoing immunotherapy - CT abd/pelvis shows enlarging L adrenal and renal masses - Will consult palliative care for goals of care after surgery, per nurse family may be considering hospice - guaifenisin and scopolamine added for secretions COPD - Continue home meds - Monitor resp status - On room air at baseline. Insomnia - Prn meds Sinus tachycardia - Continue home meds. HTN - Continue home meds. HLD - Continue home meds GERD - Continue home meds Dispo: Admitted to med/surg. Stable. IVF: KVO Diet: full liquid, advance per surgery GI ppx: protonix DVT ppx: Lovenox Code: DNAR PCP: Dr. Elena Addendum - Attending - Attending Attestation Date/Time: 07/07/20 2281 I personally evaluated the patient and discussed the management with Dr. Hua. I agree with the History, Examination, Assessment and Plan documented above with any addition or exceptions noted below. Adjust pain meds and antibiotics per surgery have been d/c'd.
[2020-07-07 06:24] LABS: #Eosinphils 0.1 thou/uL (0.0-0.7); #Monocytes 0.5 thou/uL (0.11-0.59); #Neutrophils 5.8 thou/uL (1.40-6.50); %Basophils 0.2 % (0.0-1.0); %Eosinophils 1.7 % (0.0-10.0); %Lymphocytes 13.2 % (21.0-51.0); %Monocytes 6.9 % (0.0-10.0); Hemoglobin 7.6 g/dL (12.0-16.0); Mean Corpuscular HGB CONC 32.9 g/dL (32.0-36.0); Mean Corpuscular Hemoglobin 33.2 pg (27.0-31.0); Mean Platelet Volume 5.9 fL (7.4-10.4); Platelet Count 196 thou/uL (130-400); Red Blood Cell (RBC) Count 2.28 mill/uL (4.20-5.40); White Blood Cell (WBC) Count 7.4 thou/uL (4.8-10.8)
[2020-07-07 06:46] LABS: Anion Gap 12 mmol/L (10-20); BUN (Urea Nitrogen) 9 mg/dL (9.8-20.1); Calc. Creatinine Clearance 59 mL/min (70-130); Calcium 8.7 mg/dL (7.8-10.44); Carbon Dioxide 24 mmol/L (23-31); Chloride 107 mmol/L (98-107); Glucose 79 mg/dL (83-110); Potassium 3.8 mmol/L (3.5-5.1); Sodium 139 mmol/L (136-145)
[2020-07-07] MEDS: Albuterol 200 PUFF (6.7GM INHALER) INH SCH ×2 (06:57→21:55)
[2020-07-07] MEDS: Mometasone 200 MCG/Formoterol 5 MCG 120 PUFF INHALER INH SCH ×2 (06:57→21:55)
[2020-07-07] MEDS: HYDROcodone/Acetaminophen 10/325 mg Tablet PO SCH ×3 (09:30→16:41)
[2020-07-07] MEDS: Famotidine/PF 20 mg/2ml Vial SLOW IVP SCH (09:31)
[2020-07-07] MEDS: Enoxaparin Sodium 40 MG/0.4 ML SYRINGE SC SCH (09:40)
--- NOTE | 2020-07-07 11:50 | PRG ---
DATE OF SERVICE: 07/07/2020 SUBJECTIVE: Her tachypneic is improved today. Her breathing is improved. She still not wanting to drink much. She did sit at the side of the bed briefly, but she is very weak. OBJECTIVE: VITAL SIGNS: She is afebrile. Her vital signs are stable. Her O2 saturations 92% on 2 L. Urine output is adequate. CHIVO, 90, serosanguineous. She had 115 of stool. ABDOMEN: Soft, less distended. She has stool and air in her bag. Midline incision is healing well. No infection. CHIVO serosanguineous. LABORATORY DATA: Creatinine 0.72. Hemoglobin 7.6, white blood cell count is 7 with normal differential. ASSESSMENT: 1. Postop day #3, left colectomy, colostomy. 2. Metastatic renal cell cancer with Keytruda due in the next few weeks. 3. Severe chronic deconditioning. PLAN: I think she will improve slightly. My hope is that over the next few days, we will be able to advance her diet. She certainly looks more awake today. I think switching over to oral pain medicine is the best way for pain control. I have encouraged the family to keep on her about trying to drink more and they can bring in some soups from the outside if she would like that. We will start fluids back at a low rate. If no improvement in the next few days, I think we push for more inpatient hospice. We will also touch base with Dr. Akins on Thursday. Dr. Jean-Baptiste is seeing for me tomorrow. I will be back on Thursday. Job ID: [id number]
[2020-07-07] MEDS: D5 1/2 NS w/20 mEq KCL 1,000 ML IV SCH (12:06)
[2020-07-07] MEDS: Morphine 2 MG/ML VIAL SLOW IVP PRN ×3 (13:59→22:13)
[2020-07-07] MEDS: Lorazepam 1 MG TAB PO PRN (18:52)
[2020-07-07] MEDS: Acetaminophen/Codeine 30-300mg Tablet PO SCH (19:46)
[2020-07-07] MEDS: Montelukast Sodium 10 mg Tablet PO SCH (19:47)
--- NOTE | 2020-07-07 21:44 | EKG ---
Test Reason : Blood Pressure : / mmHG Vent. Rate : 082 BPM Atrial Rate : 082 BPM P-R Int : 226 ms QRS Dur : 072 ms QT Int : 362 ms P-R-T Axes : 085 029 048 degrees QTc Int : 422 ms Sinus rhythm with 1st degree A-V block with Premature ventricular complexes or Fusion complexes Nonspecific ST abnormality Abnormal ECG Confirmed by YARELI ANTUNEZ DO ([id number]), editor managing newspaper DEVONTE VALLADARES ([id number]) on 07/07/2020 9:44:06 PM Referred By: Confirmed By:YARELI ANTUNEZ DO
[2020-07-08] MEDS: Acetaminophen/Codeine 30-300mg Tablet PO SCH ×7 (00:03→23:46)
[2020-07-08] MEDS: Morphine 2 MG/ML VIAL SLOW IVP PRN ×6 (02:08→22:02)
--- NOTE | 2020-07-08 05:27 | PDOC.FM ---
- Subjective Subjective: Reports that her pain was well controlled with tylenol 3s and morphine overnight. Denies N/V, STOVER, CP, SOB. Reports that her secretions are better; however, she nows feels as if her mouth is very dry. Able to tolerate some PO intake yesterday. Per daughter, anxiety and confusion improved. - Objective MAR Reviewed: Yes Vital Signs & Weight: Vital Signs (12 hours) Temp Pulse Resp BP Pulse Ox 07/08/20 00:04 79 18 115/74 93 L 07/07/20 19:49 97.1 F L 84 16 116/69 93 L Weight Weight 56.699 kg I&O: 07/06/20 07/07/20 07/08/20 06:59 06:59 06:59 Intake Total 3022 394 Output Total 1105 5075 1210 Balance 9427 -9735 -9250 Result Diagrams: 07/07/20 06:03 07/07/20 06:03 Phys Exam - Physical Examination Constitutional: NAD dry MM, lips Neck: supple, full ROM upper airway secretions Cardiovascular: RRR Gastrointestinal: soft, positive bowel sounds ATTP Musculoskeletal: no edema Neurological: non-focal, moves all 4 limbs Psychiatric: normal affect Skin: no rash Dx/Plan - Plan Plan: Diverticulitis with abscess, s/p sigmoidectomy w/ colostomy POD #4 - Dr. Mendez, surgeon, consulted. Procedure 07/04/20. - BUSINESS OWNER/ENGINEER pump DC'd on 07/06 > IV Fentanyl > [place] 07/07 > Now on Tylenol 3 with Morphine for breakthrough pain - Zofran and Phenergan for nausea. - Zosyn 07/01 - 07/05. Discontinued. UTI, treated. Stage IV lung cancer with mets - Undergoing immunotherapy - CT abd/pelvis shows enlarging L adrenal and renal masses - Will consult palliative care for goals of care after surgery, per nurse family may be considering hospice - guaifenisin and scopolamine added for secretions with improvement COPD - Continue home meds - Monitor resp status - On room air at baseline, currently alternating between 2L and RA Insomnia - Prn meds Sinus tachycardia - Continue home meds. HTN - Continue home meds. HLD - Continue home meds GERD - Continue home meds Dispo: Admitted to med/surg. Stable. IVF: D5 1/2 NS at 50 mls/hr Diet: full liquid, advance per surgery GI ppx: protonix DVT ppx: Lovenox Code: DNAR PCP: Dr. Eelna Addendum - Attending - Attending Attestation Date/Time: 07/08/20 1050 I personally evaluated the patient and discussed the management with Dr. Hua. I agree with the History, Examination, Assessment and Plan documented above with any addition or exceptions noted below. Pain management now per surgery. Would d/c scopolamine patch if possible. Pulmonary toilet. Mobility if able. Family discussion care options.
[2020-07-08] MEDS: D5 1/2 NS w/20 mEq KCL 1,000 ML IV SCH (05:57)
[2020-07-08] MEDS: Albuterol 200 PUFF (6.7GM INHALER) INH SCH ×2 (08:00→19:55)
[2020-07-08] MEDS: Mometasone 200 MCG/Formoterol 5 MCG 120 PUFF INHALER INH SCH ×2 (08:01→19:55)
[2020-07-08] MEDS: Famotidine/PF 20 mg/2ml Vial SLOW IVP SCH (08:11)
[2020-07-08] MEDS: Enoxaparin Sodium 40 MG/0.4 ML SYRINGE SC SCH (08:11)
--- NOTE | 2020-07-08 10:18 | PDOC.GSPN ---
Surgery Progress Note: Subj - Subjective Narrative: Patient is status post Laughlin's procedure. Family at bedside. She is tolerating her diet. Colostomy is working. Pain is well controlled at rest. Still having productive cough and difficulty taking a deep breath secondary to pain. No new overnight events Surgery Progress Note: Obj - Vital signs Vital signs: Vital Signs - Most Recent Temp Pulse Resp BP Pulse Ox 98.2 F 79 18 114/70 98 07/08/20 07:30 07/08/20 07:30 07/08/20 07:30 07/08/20 07:30 07/08/20 07:30 - Physical Exam Additional exam: General-elderly, very chronically ill, Head-[normocephalic, atraumatic] HEENT- [EOMI], [PERRLA] Neck-[trachea midline, supple] Lungs-coarse bilaterally, decreased movement secondary to poor effort Heart-[regular regular], [no murmurs] Abdomen-[soft], [nondistended], appropriately tender around incision, incisions clean dry and intact without drainage, ostomy is functional and viable, [normal active bowel sounds] Musculosketal-wasted extremities, Psychiatric-[good insight, good judgment] Skin-very thin skin Neuro- [GCS 15], [CN II-XII intact] Surgery Progress Note: Results - Labs Result Diagrams: 07/07/20 06:03 07/07/20 06:03 - Radiology Interpretation CT scan - abdomen Status: report reviewed by me (Enlarging L adrenal and renal masses. Increasing L diverticular abscess in L adnexal region, next to the sigmoid colon) Surgery Progress Note: A/P - Problem (1) Colonic diverticular abscess Current Visit: Yes Code(s): K57.20 - DVTRCLI OF LG INT W PERFORATION AND ABSCESS W/O BLEEDING Status: Acute Assessment and Plan: She seems to be recovering from her Sheri procedure. Unfortunately, given her chronic medical issues, she is going to have a challenging recovery period. Continue on her current diet. Physical therapy as tolerated. This is my first time examining the patient. Her lungs sound a little wet, but admitting service states that they are better today.
[2020-07-08] MEDS: Ondansetron PF 4 MG/2 ML Vial IVP PRN (14:20)
[2020-07-08] MEDS: Montelukast Sodium 10 mg Tablet PO SCH (20:19)
[2020-07-08] MEDS: Lorazepam 1 MG TAB PO PRN (22:02)
[2020-07-08] MEDS: Zolpidem Tartrate 5 MG TAB PO PRN (23:47)
[2020-07-09] MEDS: Acetaminophen 325 MG TAB PO PRN ×2 (01:40→08:01)
[2020-07-09] MEDS: Scopolamine 1.5 mg/72 hour Patch TD SCH (01:41)
[2020-07-09] MEDS: Morphine 2 MG/ML VIAL SLOW IVP PRN ×3 (01:45→10:05)
[2020-07-09] MEDS: D5 1/2 NS w/20 mEq KCL 1,000 ML IV SCH ×2 (01:48→13:22)
[2020-07-09] MEDS: Acetaminophen/Codeine 30-300mg Tablet PO SCH ×3 (04:30→12:07)
[2020-07-09] MEDS: Mometasone 200 MCG/Formoterol 5 MCG 120 PUFF INHALER INH SCH ×2 (08:24→18:51)
[2020-07-09] MEDS: Albuterol 200 PUFF (6.7GM INHALER) INH SCH ×2 (08:24→18:52)
[2020-07-09] MEDS: Famotidine/PF 20 mg/2ml Vial SLOW IVP SCH (10:05)
[2020-07-09] MEDS: Enoxaparin Sodium 40 MG/0.4 ML SYRINGE SC SCH (10:06)
--- NOTE | 2020-07-09 10:50 | PDOC.FM ---
- Subjective Subjective: Patient having significant abdominal and back pain this morning. Current pain regimen with morphine and Tylenol#3 per Surgery team. Patient says she has been having pain all night long and feels like pain not in control, gets relief for about 1 hour after getting morphine but otherwise not much relief. Daughter present at bedside, states they want to discuss options with Dr. Mendez this morning, are leaning toward hospice care. - Objective MAR Reviewed: Yes Vital Signs & Weight: Vital Signs (12 hours) Temp Pulse Resp BP Pulse Ox 07/09/20 07:23 98.1 F 79 18 107/66 100 07/09/20 04:41 97.7 F 88 18 130/73 99 07/08/20 23:51 98.9 F 92 18 125/71 99 Weight Weight 56.699 kg I&O: 07/08/20 07/09/20 07/10/20 06:59 06:59 06:59 Intake Total 939 960 840 Output Total 4967 513 2259 Balance -951 235 -405 Result Diagrams: 07/07/20 06:03 07/07/20 06:03 Phys Exam - Physical Examination Constitutional: NAD appears chronically ill HEENT: sclera anicteric dry mucous membranes Neck: supple Respiratory: clear to auscultation bilateral Cardiovascular: RRR Gastrointestinal: soft TTP in all quadrants Musculoskeletal: pulses present Neurological: moves all 4 limbs Psychiatric: A&O x 3 Deviation from normal: flat affect Skin: no rash Dx/Plan (1) Colonic diverticular abscess Code(s): K57.20 - DVTRCLI OF LG INT W PERFORATION AND ABSCESS W/O BLEEDING Status: Acute (2) Metastatic lung cancer (metastasis from lung to other site) Code(s): C34.90 - MALIGNANT NEOPLASM OF UNSP PART OF UNSP BRONCHUS OR LUNG Status: Acute Qualifiers: Laterality: unspecified laterality Qualified Code(s): C34.90 - Malignant neoplasm of unspecified part of unspecified bronchus or lung - Plan Plan: Diverticulitis with abscess, s/p sigmoidectomy w/ colostomy POD #5 - Dr. Mendez, surgeon, consulted. Procedure 07/04/20. - SHIPPING AND RECEIVING pump DC'd on 07/06 > IV Fentanyl > [place] 07/07 > Now on Tylenol 3 with Morphine for breakthrough pain -pain currently not controlled this morning, will reach out to surgical team to see if can adjust - Zofran and Phenergan for nausea. - Zosyn 07/01 - 07/05. Discontinued. UTI, treated. Stage IV lung cancer with mets - Undergoing immunotherapy - CT abd/pelvis shows enlarging L adrenal and renal masses - Palliative care consulted for goals of care after surgery, family considering hospice but wish to talk to surgeon Dr. Mendez this morning - guaifenisin and scopolamine added for secretions with improvement COPD - Continue home meds - Monitor resp status - On room air at baseline, currently alternating between 2L and RA Insomnia - Prn meds Sinus tachycardia - Continue home meds. HTN - Continue home meds. HLD - Continue home meds GERD - Continue home meds IVF: D5 1/2 NS at 50 mls/hr Diet: full liquid, advance per surgery GI ppx: protonix DVT ppx: Lovenox Code: DNAR PCP: Dr. Elena Dispo: Stable, Admitted to inpatient on med/surg. Adjust pain control measures today. Re-consult palliative care team as patient and family now considering inpatient hospice. Addendum - Attending - Attending Attestation Date/Time: 07/09/20 9020 I personally evaluated the patient and discussed the management with Dr. Howell. I agree with the History, Examination, Assessment and Plan documented above with any addition or exceptions noted below.
[2020-07-09] MEDS ORDERED: Furosemide 20 MG/2 ML VIAL SLOW IVP SCH (12:30)
--- NOTE | 2020-07-09 12:47 | PRG ---
DATE OF SERVICE: 07/09/2020 SUBJECTIVE: Ms. Roy is still complaining of fairly significant back and abdominal pain. The Tylenol No. 3 is not quite working. Her breathing at times is labored. She denies nausea. She sat on the edge of the bed briefly with physical therapy. OBJECTIVE: She is afebrile. Her vital signs are stable. Her urine output is adequate and her stool is of moderate amount. Her abdomen incision is healing well. CHIVO is serosanguineous. She has air and stool in her bag. ASSESSMENT: Postoperative left colectomy and colostomy, history of metastatic renal cell cancer. PLAN: Family would like to move towards hospice. We will advance towards GI soft diet. Palliative care discussed. We will discuss with Dr. Akins. Job ID: [id number]
[2020-07-09] MEDS: Hydrocodone-Acetamin 15 ML UDCUP PO PRN ×3 (14:10→21:57)
[2020-07-09] MEDS: Fentanyl 100 MCG/2 ML VIAL SLOW IVP PRN ×3 (16:29→23:51)
[2020-07-09] MEDS: Montelukast Sodium 10 mg Tablet PO SCH (20:03)
[2020-07-09] MEDS: Lorazepam 1 MG TAB PO PRN (21:57)
[2020-07-10] MEDS: Hydrocodone-Acetamin 15 ML UDCUP PO PRN ×5 (02:02→18:02)
[2020-07-10] MEDS: Zolpidem Tartrate 5 MG TAB PO PRN (02:02)
[2020-07-10] MEDS: Fentanyl 100 MCG/2 ML VIAL SLOW IVP PRN ×4 (03:57→16:04)
--- NOTE | 2020-07-10 06:14 | PDOC.FM ---
- Subjective Subjective: Mrs. Roy was resting this morning and stated her pain was well-controlled. She has a lot of secretions that she was working to cough up. Her daughter was present and stated she is to be transitioned to IP hospice later this morning. - Objective Vital Signs & Weight: Vital Signs (12 hours) Temp Pulse Resp BP Pulse Ox 07/09/20 19:54 98 F 92 16 122/75 98 Weight Weight 56.699 kg I&O: 07/08/20 07/09/20 07/10/20 06:59 06:59 06:59 Intake Total 164 161 9846 Output Total 9044 601 7656 Balance -951 235 -1295 Result Diagrams: 07/07/20 06:03 07/07/20 06:03 Phys Exam - Physical Examination Constitutional: NAD Dx/Plan - Plan Plan: Diverticulitis with abscess, s/p sigmoidectomy w/ colostomy POD #6 - Dr. Mendez, surgeon, consulted. Procedure 07/04/20. - ROOM SERVICE ATTENDANT pump DC'd on 07/06 > IV Fentanyl > [place] * Tyl 3 and morphine d/c on 07/09 * continue to work on controlling pain - Zofran and Phenergan for nausea. - Zosyn 07/01 - 07/05. UTI, treated. Stage IV lung cancer with mets - Undergoing immunotherapy - CT abd/pelvis shows enlarging L adrenal and renal masses - Pt/Family has chosen IP hospice with [facility]. * Will begin d/c meds and switch to comfort measures - guaifenisin and scopolamine added for secretions with improvement COPD - Will continue home meds as they may help with comfort - Monitor resp status - On room air at baseline, currently alternating between 2L and RA Insomnia - Prn meds Sinus tachycardia - Will d/c home meds HTN - Will d/c home meds. HLD - Will d/c home meds GERD - Will d/c home meds IVF: D5 1/2 NS at 50 mls/hr Diet: GI soft diet, fiber-restricted. advance per surgery GI ppx: protonix DVT ppx: Lovenox Code: DNAR PCP: Dr. Elena Dispo: Stable, Admitted to inpatient on med/surg. Adjust pain control measures as needed. Pending discharge to IP hospice today. Addendum - Attending - Attending Attestation Date/Time: 07/10/20 3196 I personally evaluated the patient and discussed the management with Dr. Kerri Carias. I agree with the History, Examination, Assessment and Plan documented above with any addition or exceptions noted below.
[2020-07-10] MEDS: Mometasone 200 MCG/Formoterol 5 MCG 120 PUFF INHALER INH SCH ×2 (07:53→18:31)
[2020-07-10] MEDS: Albuterol 200 PUFF (6.7GM INHALER) INH SCH ×2 (07:53→18:31)
[2020-07-10] MEDS: Enoxaparin Sodium 40 MG/0.4 ML SYRINGE SC SCH (08:24)
[2020-07-10] MEDS: Famotidine/PF 20 mg/2ml Vial SLOW IVP SCH (08:31)
[2020-07-10] MEDS: D5 1/2 NS w/20 mEq KCL 1,000 ML IV SCH (13:51)
--- NOTE | 2020-07-10 15:01 | PRG ---
DATE OF SERVICE: 07/10/2020 SUBJECTIVE: Ms. Roy is more alert today, answering questions. Her daughters are not in the room. She has been approved for inpatient hospice. She tolerated small amount of regular food. She does not have much of an appetite. OBJECTIVE: VITAL SIGNS: She is afebrile. Vital signs are stable. 97% O2 saturation on 2 L nasal cannula. ABDOMEN: Soft, nondistended. Midline wound healing well. The drain has been removed. She has air and stool in her bag. ASSESSMENT: Postop left colectomy, colostomy for chronic not improving diverticulitis with non-drainable abscess. PLAN: Plans are for inpatient hospice. It is okay by me for her to go today. Job ID: [id number]
[2020-07-10 15:30] VITALS: BP 111/71; TEMP 98
--- NOTE | 2020-07-11 05:02 | DIS ---
DATE OF ADMISSION: 07/01/2020 DATE OF DISCHARGE: 07/10/2020 RESIDENT: Yris Escobedo MD ADMITTING ATTENDING: Susy Garcia MD DISCHARGE ATTENDING: Rhys Pearson MD CONSULTS: General Surgery, Dr. Mendez (07/01). PROCEDURES: 1. CT abdomen and pelvis (07/01)-enlarging left diverticular abscess in the left adnexal region adjacent to the sigmoid colon. Enlarging left adrenal mass and left renal masses. 2. Laparoscopic sigmoid colectomy with colostomy (07/04). PRIMARY DIAGNOSES: Diverticulitis with abscess, urinary tract infection. SECONDARY DIAGNOSES: Stage IV lung cancer S/P chemotherapy and receiving immunotherapy, insomnia, chronic obstructive pulmonary disease, gastroesophageal reflux disease, hyperlipidemia, and hypertension. DISCHARGE MEDICATIONS: Those that will contribute to increasing her comfort. Hospice to decide. DISCONTINUED MEDICATION: Any of that do not increase her comfort. Hospice to decide. HISTORY OF PRESENT ILLNESS/HOSPITAL COURSE: This is a 75-year-old female with a past medical history of stage IV lung cancer, who presented for left lower quadrant pain, constipation, and nausea from [facility]. She had been seen a month prior with diverticulitis and an abscess and was evaluated at that time by Dr. Mendez, who determined she was not a good surgical candidate and attempted medical management. Despite Augmentin and Flagyl, the symptoms returned and so she went back to the hospital. CT abdomen and pelvis on admission had results consistent with these diagnoses, as stated above. Dr. Mendez evaluated her and elected to do a laparoscopic sigmoid colectomy with colostomy placement on 07/04. The patient was never able to recover well from this procedure. She had persistent nausea, vomiting, pain, and the pain medications were making her extremely drowsy. In the setting of her known stage IV lung cancer, Palliative Care was consulted to help determine the family's goals of care. Ultimately, the family elected to pursue inpatient hospice with [facility], so the patient was discharged to them. DISPOSITION: Stable. DISCHARGE INSTRUCTIONS: LOCATION: [facility]. DIET: No restrictions. ACTIVITY: As tolerated. FOLLOWUP: Can follow up with the PCP as needed. Job ID: [id number] [facility]
== END 2020-07-10 18:48 | disposition hospice, inpatient (51) | DRG 330 ==
LOC: ERS 12:52 → T4-A 16:45 → SURG A 07-04 17:17
PROVIDERS: ADMIT Student in an Organized Health Care Education/Training Program; ATTEND Family Medicine
PROC: 0DBN4ZZ Excision of Sigmoid Colon, Percutaneous Endoscopic Approach (ICD-10-PCS; principal; 2020-07-04)
PROC: 30233N1 Transfusion of Nonautologous Red Blood Cells into Peripheral Vein, Percutaneous Approach (ICD-10-PCS; 2020-07-05)
DX: K57.20 Diverticulitis of large intestine with perforation and abscess without bleeding (principal); N39.0 Urinary tract infection, site not specified; C34.90 Malignant neoplasm of unspecified part of unspecified bronchus or lung; C79.00 Secondary malignant neoplasm of unspecified kidney and renal pelvis; C34.81 Malignant neoplasm of overlapping sites of right bronchus and lung; G47.00 Insomnia, unspecified; J44.9 Chronic obstructive pulmonary disease, unspecified; K21.9 Gastro-esophageal reflux disease without esophagitis; I10 Essential (primary) hypertension; E78.00 Pure hypercholesterolemia, unspecified; R00.0 Tachycardia, unspecified; Z20.822 Contact with and (suspected) exposure to COVID-19; Z66 Do not resuscitate; K59.00 Constipation, unspecified; Z90.89 Acquired absence of other organs; Z90.49 Acquired absence of other specified parts of digestive tract; Z87.891 Personal history of nicotine dependence; Z88.2 Allergy status to sulfonamides; Z79.899 Other long term (current) drug therapy; Z79.51 Long term (current) use of inhaled steroids; Z92.21 Personal history of antineoplastic chemotherapy; E78.2 Mixed hyperlipidemia
CPT/HCPCS: 36415; 36416; 36430; 51701; 74177; 80048; 80053; 81003; 81015; 82248; 83605; 83615; 84100; 84436; 84443; 84550; 85007; 85025; 85027; 86140; 86850; 86900; 86901; 87040; 87077; 87086; 87186; 87635; 88307; 93005; 94640; 96374; 96375; J1170; J1650; J1940; J2001; J2270; J2405; J2543; J2550; J2704; J3010; J3480; J3490; J7620; P9016; Q0162; Q0169; Q9967; S0020; S0028; U0003; U0005